=== PATIENT | male | born 1950 | race Caucasian/White ===

== ENCOUNTER 2024-01-25 04:57 | Inpatient (IN) | payer MEDICARE, OTHER, SELFPAY ==
[2024-01-25] VITALS (19 sets, daily range): BP systolic 94–153; BP diastolic 33–64; PULSE 2–103; BMI 26.7; BMI 27.0
--- NOTE | 2024-01-25 03:36 | ED.GENMED ---
History of Present Illness
General
Chief Complaint: Breathing Problem
Source: patient, ambulance crew and detention records
Exam Limitations: none
Time Seen by Provider: 01/25/24 03:05
Nursing documentation reviewed up to this point in time: agreed with
History of Present Illness
History of Present Illness:
Pleasant 73-year-old male from [facility] to presents with shortness of breath, wheezing, fever and cough. Paramedics state that upon arrival, patient's room air oxygen saturation was 80%. They gave him a DuoNeb and put him on nonrebreather.
His pulse ox went up to 98%. Patient was febrile and he received 650 mg of Tylenol prior to EMS arrival. Patient is a poor historian. 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 History is limited to EMS report and
detention records.
Review of Systems
Review of Systems
Allergies reviewed?: Yes
Other source history: ambulance crew and transfer record
All Other Systems: ROS reviewed and negative except as documented in HPI and ROS
Constitutional: Reports fever and sleep disturbance
EENT: Reports no symptoms
Respiratory: Reports cough and trouble breathing
Cardiac: Reports no symptoms
ABD/GI: Reports no symptoms
: Reports no symptoms
Musculoskeletal: Reports no symptoms
Skin: Reports no symptoms
Neurological: Reports no symptoms
Endocrine: Reports no symptoms
Hematologic/Lymphatic: Reports no symptoms
Psychiatric: Reports anxiety
Phy Exam
General Physical Exam
General Presentation: moderate distress
General age: appears stated age
General Skin: warm and dry
General Habitus: normal
General Mental: confused
General Hydration: appears well hydrated
Cardiovascular Exam
Cardiovascular Exam: regular rate/rhythm
Pulmonary Exam
Pulmonary Exam: accessory muscle use, generalized wheezing and respiratory distress
Oxygen Status: BiPAP
Respirations: mild increase in effort
Gastrointestinal Exam
Gastrointestinal Exam: normal bowel sounds and non tender
Neurological Exam
Neurological Exam: confused
Musculoskeletal Exam
Musculoskeletal Exam: full ROM
Skin Exam
Skin Exam: normal color and warm/dry
Psychiatric Exam
Psychiatric Exam: normal mood/affect
Scores
Heart Failure Risk
Heart Failure Risk Score: Not Applicable
Sepsis
Sepsis Screening
Sepsis Assessment: Severe Sepsis
Sepsis Screening: Hypotension and Need for mechanical ventilation or BiPAP
Sepsis Screen
Sepsis Screen: Severe Sepsis
Date: 01/25/24
Time: 06:18
Course
Orders/Labs/Results
Orders:
Orders
01/25/24 03:06
Cardiac Monitoring- Treatment ONCE
Bipap [RESP] Urgent
Patient to use own unit?: No
Inspiratory Pressure (cm H2O): 12
Expiratory Pressure (cm H2O): 5
01/25/24 03:07
CR Chest Portable - 1 View Urgent
Comment:
Reason For Exam: fever, dyspnea
Reason Study Needs to be Portable: Patient Unstable
01/25/24 03:10
Electrocardiogram (*1) Urgent
Reason for Study: Shortness of Breath
EKG- Treatment ONCE
01/25/24 03:36
Add On- LAB Urgent
Tests Added?: probnp
01/25/24 03:37
Arterial Blood Gas Urgent
%Oxygen/Room Air: 2l
01/25/24 03:40
Complete Blood Count/With Diff Urgent
Comprehensive Metabolic Panel Urgent
NT-proBNP Urgent
Comment: ADDED
PTT Urgent
Procalcitonin Urgent
PCT Algorithmm Indication: Sepsis
Prothrombin Time Urgent
Troponin I Urgent
01/25/24 03:41
Lactic Acid Q4H
Comment: CANCEL 2nd LACTIC ACID IF 1st LACTIC ACID IS LESS THAN 2
Blood Culture Routine
LUIS FELIPE Source: Blood/Venous
Specimen Description:
01/25/24 03:42
Influenza A+B Rapid Molecular Urgent
LUIS FELIPE Source: Nasal Swab
Specimen Description:
01/25/24 04:03
COVID-19 Antigen Urgent
Source: Nasal Swab
Blood Culture Urgent
LUIS FELIPE Source: Blood/Venous
Specimen Description:
01/25/24 04:18
Admit/Transfer Patient As Directed
Co-Sign Provider:
Level of Care: Inpatient admission
Assign to:: IMU- Intermediate Care
Physician / Group: hospitalist
Diagnosis: hypoxic respiratory failure
Reason for Hospitalization: hypoxic respiratory failure
Expected length of stay greater than two midnights?: Yes
ELOS- Estimated Length of Stay in days: 2
I certify the patient meets the requirements for IP care: Yes
PRN Pain Medication Management As Directed
May give lesser potent ordered pain med per pt: Yes
preference::
Protocol:: Medication orders for pain may be administered in a
manner that supports deferring to patient preference
when the pt is:
- Requesting an ordered lesser potent pain medication.
Least to most potent pain medications are defined
as: acetaminophen < NSAID < tramadol < opioids
(morphine, oxycodone, hydromorphone).
- Requesting a lesser dose of the same medication IF
ORDERED.
- Requesting a less intrusive route of administration
if both routes are prescribed by the provider (PO <
IV).
01/25/24 04:19
Code Status As Directed
Resuscitation Status: Full Code
01/25/24 04:57
Urinalysis Stat
Date Specimen was Collected: 01/25/24
Time Specimen was Collected: 04:54
01/25/24 05:57
Ipratropium/Albuterol Sulfate [Duoneb] 3 ml INH R Q3HPRN PRN
01/25/24 06:02
0.9% Sodium Chloride 500 ml [Nss] 500 ml IV BOLUS
Abnormal Lab Results
01/25/24 01/25/24
03:37 03:40
RBC 4.03 L 10^6/uL
(4.70-6.10)
Hgb 12.5 L g/dL
(13.0-18.0)
Hct 35.4 L %
(39.0-52.0)
Plt Count 92 L 10^3/uL
(130-400)
MPV 11.7 H fL
(7.4-10.4)
Absolute Neuts (auto) 6.8 H 10^3/uL
(1.4-6.5)
Absolute Lymphs (auto) 0.9 L 10^3/uL
(1.2-3.4)
Neutrophils % 79.6 H %
(42.2-75.2)
Lymphocytes % 10.0 L %
(20.5-51.1)
PT 14.8 H Sec
(11.4-14.6)
APTT 38.3 H Sec
(23.4-35.0)
pO2 70 L mmHg
(83-108)
HCO3 19.3 L mmol/L
(21-28)
Potassium 5.2 H mmol/L
(3.5-5.1)
Carbon Dioxide 20 L mmol/L
(22-30)
BUN 32 H mg/dl
(9-20)
Glucose 153 H mg/dl
(70-99)
01/25/24 03:40
01/25/24 03:40
Vital Signs
Initial and Last Documented VS:
Initial Vital Signs
Pulse Resp Pulse Ox
105 23 89
01/25/24 03:05 01/25/24 03:05 01/25/24 03:05
Last Documented Vital Signs
Temp Pulse Resp BP Pulse Ox
100.8 F H 87 20 99/55 94
01/25/24 04:25 01/25/24 06:00 01/25/24 06:00 01/25/24 06:00 01/25/24 06:00
*Critical Care Note
Total Time (30-74mins, 75-104mins- exclusive of procedures): Not Applicable
ED Attending Note
-
Portions of this chart may have been created with voice recognition software.� Occasional wrong word or��sound alike� substitutions may have occurred due to the inherent limitations of voice recognition software.
Discharge Plan
Departure
Patient Disposition: Admit
Date of Disposition: 01/25/24
Time of Disposition: 03:40
Admit to: IVU
Presentation/result/management discussed w/ accepting MD/DO: Hospitalist
Condition: Fair
Discharge Problem:
COPD (chronic obstructive pulmonary disease), Fever
Interventions
Interventions:
*Risk Screen - Suicide Last Done: 01/25/24 03:07
*General Assessment Last Done: 01/25/24 03:07
*Neglect/Abuse Screening Last Done: 01/25/24 03:07
ED- Fall Risk Assessment Last Done: 01/25/24 03:07
*ED COVID-19 Vaccine History Last Done: 01/25/24 03:07
ED- Cardiac Assessment Last Done: 01/25/24 03:05
ED- Neurological Assessment Last Done: 01/25/24 03:05
ED- Pulmonary Assessment Last Done: 01/25/24 03:05
ED-Skin Assessment Last Done: 01/25/24 03:05
[2024-01-25 03:51] LABS: B.E. -5.6 mmol/L; HCO3 19.3 mmol/L (21-28); O2 Saturation % 97.5 % (94-98); PCO2 35 mmHg (35-48); PO2 70 mmHg (83-108); pH 7.35 (7.35-7.45)
[2024-01-25 03:52] LABS: O2 Therapy 2L NC
[2024-01-25 03:59] LABS: % Basophils 0.4 % (0-2); % Eosinophils 3.9 % (0-6); % Immature Granulocytes 0.4 % (0-0.5); % Monocytes 5.7 % (1.7-9.3); % Neutrophils 79.6 % (42.2-75.2); Absolute Eosinophils 0.3 10^3/uL (0-0.7); Absolute Lymphocytes 0.9 10^3/uL (1.2-3.4); Absolute Monocytes 0.5 10^3/uL (0.1-0.6); Absolute Neutrophils 6.8 10^3/uL (1.4-6.5); Hematocrit 35.4 % (39.0-52.0); Hemoglobin 12.5 g/dL (13.0-18.0); Mean Corp Hgb Conc. 35.3 g/dL (33.0-37.0); Mean Corpuscular Volume 87.8 fL (80.0-94.0); Nucleated Red Blood Cells % 0 % (-); Red Blood Cell Count 4.03 10^6/uL (4.70-6.10); Red Cell Dist. Width 12.6 % (11.5-14.5); White Blood Cell Count 8.6 10^3/uL (4.8-10.8)
[2024-01-25 04:04] LABS: INR 1.18; PT 14.8 Sec (11.4-14.6)
[2024-01-25 04:05] LABS: APTT 38.3 Sec (23.4-35.0)
[2024-01-25 04:07] LABS: Lactic Acid 1.7 mmol/L (0.7-2.0)
--- NOTE | 2024-01-25 04:07 | HPS.HSE ---
Family Physician
-
Family Physician:
Chief Complaint
-
Cough fever and shortness of breath
History of Present Illness
This is a 73-year-old male who has a past medical history significant for COPD not on home O2, tobacco use, prior right posterior cerebral cerebral artery infarct, TBI, hypertension, hyperlipidemia, dysphagia, chronic ambulatory dysfunction who
presents from [facility] with cough fevers and shortness of breath. Patient himself was only able to give a very brief history. He states that he does not know how long he has been feeling sick. However he notes that he has been
having cough and shortness of breath for at least 2 days. He denies having any chest pain. He denies having any palpitations he denies any orthopnea or PND. He had no lower extremity swelling. Paramedics state that upon arrival, patient's room
air oxygen saturation was 80%. They gave him a DuoNeb and put him on nonrebreather. His pulse ox went up to 98%. Patient was febrile and he received 650 mg of Tylenol prior to EMS arrival. On room air his pulse ox ranged from 89 to 95% but he
had high work of breathing. The records from the long-term indicated that the patient was started on cefpodoxime yesterday for UTI.
Initial vitals he was febrile 200.4, blood pressure was 116/60, pulse was 99 with oxygen saturation of 94% on the BiPAP. ECG showed sinus tachycardia at rate of 106 with right bundle branch block. No acute ST or T wave changes. Blood gas shows a
pH of 7.35/35.
Medical History
Past Medical History
Past Medical History: Reports COPD, CVA, Dementia, HTN and Hypercholesterolemia
Past Surgical History: Reports Orthopedic and Other
Social History
Tobacco: Smoker
Alcohol: None
Drug: None
Living: Care Home
Employment: Disabled
Family History
Family History: Not pertinent
Allergies / Home Medications
Allergies reflects when Allergies were last updated in [facility].
Home Medications with original date entered in [facility]
Allergy/Medication List:
Allergies
Allergy/AdvReac Type Severity Reaction Status Date / Time
No Known Allergies Allergy Unverified 01/25/24 03:05
Home Medications
acetaminophen 325 mg tablet (Tylenol) 650 mg PO Q4 PRN fever/pain 01/25/24
albuterol sulfate 2.5 mg/3 mL (0.083 %) solution for nebulization 2.5 mg inhalation Q6H PRN wheezing 01/25/24
albuterol sulfate 90 mcg/actuation aerosol inhaler 2 puff inhalation Q6H PRN wheezing 01/25/24
amlodipine 10 mg tablet 10 mg PO DAILY 01/25/24
bisacodyl 10 mg rectal suppository (Dulcolax (bisacodyl)) 10 mg AR PRN PRN constipation 01/25/24
cefpodoxime 100 mg tablet 100 mg PO BID 01/25/24
cholecalciferol (vitamin D3) 10 mcg (400 unit) capsule (Vitamin D3) See Rx Instructions .Route .COMPLEX 01/25/24
docusate sodium 100 mg capsule (Colace) 100 mg PO BID 01/25/24
escitalopram oxalate 20 mg tablet (Lexapro) 20 mg PO DAILY 01/25/24
ezetimibe 10 mg tablet 10 mg PO DAILY 01/25/24
fluticasone propionate 50 mcg/actuation nasal spray,suspension 2 spray intranasal DAILY 01/25/24
levetiracetam 750 mg tablet 750 mg PO BID 01/25/24
lisinopril 40 mg tablet 40 mg PO DAILY 01/25/24
loperamide 2 mg capsule 2 mg PO Q4H PRN diarrhea 01/25/24
magnesium hydroxide 400 mg/5 mL oral suspension (Milk of Magnesia) 30 ml PO PRN PRN constipation 01/25/24
pravastatin 40 mg tablet 40 mg PO HS 01/25/24
sodium phosphates 19 gram-7 gram/118 mL enema (Fleet Enema) 118 ml AR PRN PRN constipation 01/25/24
Review of Systems
-
Unable to obtain full review of systems at this time due to: Dementia
History Source: Patient
Constitutional: Reports Fever
EENT: Reports No Symptoms
Respiratory: Reports Cough and Trouble Breathing
Cardiac: Reports No Symptoms
Abdomen/GI: Reports No Symptoms
: Reports No Symptoms
Musculoskeletal: Reports No Symptoms
Skin: Reports No Symptoms
Neurological: Reports No Symptoms
Endocrine: Reports No Symptoms
Hematologic/Lymphatic: Reports No Symptoms
Psych: Reports No Symptoms
Physical Exam
Vital Signs
Vital Signs
Temp Pulse Resp BP Pulse Ox
100.4 F H 99 21 116/58 94
01/25/24 03:07 01/25/24 03:45 01/25/24 03:45 01/25/24 03:07 01/25/24 03:45
Physical Exam
General: Appears in Distress
HEENT: NormoCephalic, Anicteric, Atraumatic, PERRLA and Oxygen
Respiratory: Wheezes
Cardiac: S1/S2, Regular Rhythm and Tachycardia
Breast: Deferred by me
GI: Soft, Non Tender, Normal Bowel Sounds and Distended
Rectal: Deferred by Provider
Genito-urinary: Deferred by me
Musculoskeletal: No Clubbing, No Cyanosis and No Edema
Skin: Warm
Neuro: Awake, Oriented (oriented x 3) and Nonfocal/grossly intact
Hematologic/Lymphatic: No Lymphadenopathy
Psych: Calm
Laboratory Results
-
01/25/24 03:40
Laboratory Results
pH 7.35 (7.35-7.45) 01/25/24 03:37
pCO2 35 mmHg (35-48) 01/25/24 03:37
pO2 70 mmHg (83-108) L 01/25/24 03:37
HCO3 19.3 mmol/L (21-28) L 01/25/24 03:37
Lactic Acid 1.7 mmol/L (0.7-2.0) 01/25/24 03:41
Data Reviewed
-
Diagnostic Radiology: Image Personally Visualized and interpreted
Medical Tests (Nuc Med, Echo, EKG etc): Image Personally Visualized and interpreted
Lab Data: Labs Reviewed by me
Old Records: Reviewed
Impression/Plan
-
IMPRESSION:
Patient with history of COPD, hypertension, prior CVA and chronic ambulatory dysfunction, TBI, dementia, history of seizure on antiepileptics who presented to the emergency department with acute episode of cough wheezing and shortness of breath.
Found to have a fever at the long-term. Transferred to the ED hypoxic. He was still febrile in the ED despite Tylenol. Temperature was 100.4. There was no leukocytosis or bandemia. Chest x-ray shows no acute infiltrates. No evidence of
volume overload. No chest pain concerning for PE. ECG is non-ischemic and trop is negative. Required BiPAP for oxygenation and respiratory support.
PLAN:
1. SOB - Severe exacerbation requiring non-invasive ventilatory support. Negative COVID and Flu pending.
- admit to IMU
- continue bipap 15/5, maintain sat > 91%
- start iv solumedrol 40mg bid
- iv ceftriaxone+azithromycin for severe exacerbation pending influenza and covid test
- duonebs q 6 hours standing and prn
- guafenesin tab q 6 and w/ dextromethophan prn
- pulmonary consult. Likely to wean of bipap very soon.
- no IV fluids given slight elevation in BNP.
2. HTN - Well controlled. Was on Lisinopril 40 and amlodipine 10 at home. Early BP a bit soft at 110/55
- amlodipine 10
- hold lisinopril
- no signs of overt CHF but bnp elevated. No IV fluids at this time.
3. Seizure
- Continue keppra 750 bid
4.
DVT PPX
Code Status - Full
[2024-01-25 04:08] LABS: ALT (SGPT) 17 U/L (0-50); AST (SGOT) 22 U/L (17-59); Albumin 4.3 g/dl (3.5-5.0); Alkaline Phosphatase 77 U/L (38-126); Blood Urea Nitrogen 32 mg/dl (9-20); Calcium 9.4 mg/dl (8.4-10.2); Carbon Dioxide 20 mmol/L (22-30); Chloride 107 mmol/L (98-107); Estimated Creatinine Clearance 67 ml/min; Glucose 153 mg/dl (70-99); Potassium 5.2 mmol/L (3.5-5.1); Sodium 142 mmol/L (135-145); Total Protein 7.1 g/dl (6.3-8.2); eGFR > 60.00
[2024-01-25 04:17] LABS: NT-proBNP 2360 pg/ml; Troponin I 0.022 ng/ml
[2024-01-25 04:26] LABS: COVID-19 Antigen Negative (Negative)
[2024-01-25 04:26] LABS: Mean Platelet Volume 11.7 fL (7.4-10.4); Platelet Count 92 10^3/uL (130-400)
[2024-01-25 04:38] LABS: Procalcitonin 0.12 ng/ml (0.0-0.25)
[2024-01-25 05:05] LABS: Urine Bilirubin Negative (Negative); Urine Character Clear (Clear); Urine Color Yellow; Urine Glucose Negative (Negative); Urine Ketone Negative (Negative); Urine Leukocyte Negative (Negative); Urine Nitrite Negative (Negative); Urine Occult Blood Negative (Negative); Urine Specific Gravity 1.015 (<1.030); Urine Urobilinogen 1+ (Neg - 1+)
[2024-01-25 05:10] LABS: Urine Albumin Trace (Neg - Trace)
[2024-01-25] MEDS: SOLU-MEDROL PF 40 MG IV ×2 (05:51→17:33)
[2024-01-25] MEDS: ROCEPHIN 1000 MG IV (05:51)
[2024-01-25] MEDS: VIBRAMYCIN 260 MG IV (05:56)
[2024-01-25] MEDS: STERILE WATER FOR INJECTION 10 ML IV (06:01)
[2024-01-25] MEDS: DUONEB 3 ML INH ×5 (06:01→20:27)
[2024-01-25] MEDS: NSS 500 IV (06:10)
--- NOTE | 2024-01-25 06:11 | EDRN ---
Respiratory therapist is at bedside attempting to reason w/ pt. to place bipap mask back on, as pt. had taken himself off and was becoming agitated whenever RN attempted to put back on. Was placed on 5LNC and given a duo neb, but still tachypnic and
audible rales heard. Pt. is allowing respiratory to replace mask currently.
--- NOTE | 2024-01-25 07:34 | W.PN.HOSP.TC ---
Addendum entered and electronically signed by Rolf Hoyos MD 01/25/24 21:53:
Attending Addendum-
I saw and evaluated the patient. I reviewed the resident�s note and agree with findings and plan as documented in the resident�s note. Sub: feels greatly improved. Off bipap. Denies SOB. Full 12 point ROS reviewed and negative except as documented
Exam: Vitals reviewed in chart GEN-NAD heart RRR lungs scattered wheeze abd soft LE no edema
# AE COPD/ Acute on Chronic Hypoxemic Respiratory Failure -
- weaned off Bipap to OK wean for o2 88-92%
- Negative COVID and Flu
- transfer out of IMU if stable off bipap
- cont iv solumedrol 40mg bid start taper in am
- DC abx no PNA
- duonebs q 6 hours standing and prn
- guaifenesin tab q 6 and w/ dextromethorphan prn
- pulmonary consult ordered by art teacher
# HTN
- hold parameters placed for amlodipine
- hold lisinopril
- no signs of overt CHF but bnp elevated
- check echo
# Seizure d/o
- Continue keppra 750 bid
# Thrombocytopenia
- cont to trend
# HLD- cont pravastatin
# Depression
- cont lexapro
Code Status - Full
Time spent coordinating care, review of plan of care with resident, personally reviewed records in EMR, med rec, consults, notes, labs, radiology, d/w nursing � 59 mins
Original Note:
Today's Communication/Plan
-
BiPAP discontinued. Currently on 2L Nasal cannula. 2d Echo ordered. IV Solu-Medrol and 40 mg twice daily. IV ceftriaxone and azithromycin discontinued. WBCs within normal limits and CXR showed no pneumonia. DuoNebs every 6 hours standing and as
needed. Guaifenesin tab every 6 hours with dextromethorphan as needed. Consider pulmonology consult.
Assessment / Plan
Assessment / Plan
HPI: The patient is a 73-year-old male from [facility] who presented with shortness of breath, wheezing, fever and cough prior to date night caregiver arrival, the patient's room air oxygen saturation was 80%. They gave him a DuoNeb and put him on a
nonrebreather mask. His pulse ox went up to 98% following initiation of nonrebreather. Temperature was 100.4. Patient was also febrile and he received 650 mg Tylenol prior to his EMS arrival. There was no leukocytosis or bandemia. X-ray showed
no acute infiltrates. No evidence of volume overload noted. 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 Unfortunately, history is limited to EMS report and [facility] records. Patient was
admitted to [facility] for COPD exacerbation.
Past medical history: COPD, CVA, dementia, chronic ambulatory dysfunction, history of seizure on antiepileptics, hypertension, and hypercholesterolemia
Allergies
Allergy/AdvReac Type Severity Reaction Status Date / Time
No Known Allergies Allergy Unverified 01/25/24 03:05
Home Medications
acetaminophen 325 mg tablet (Tylenol) 650 mg PO Q4 PRN fever/pain 01/25/24
albuterol sulfate 2.5 mg/3 mL (0.083 %) solution for nebulization 2.5 mg inhalation Q6H PRN wheezing 01/25/24
albuterol sulfate 90 mcg/actuation aerosol inhaler 2 puff inhalation Q6H PRN wheezing 01/25/24
amlodipine 10 mg tablet 10 mg PO DAILY 01/25/24
bisacodyl 10 mg rectal suppository (Dulcolax (bisacodyl)) 10 mg NV PRN PRN constipation 01/25/24
cefpodoxime 100 mg tablet 100 mg PO BID 01/25/24
cholecalciferol (vitamin D3) 10 mcg (400 unit) capsule (Vitamin D3) See Rx Instructions .Route .COMPLEX 01/25/24
docusate sodium 100 mg capsule (Colace) 100 mg PO BID 01/25/24
escitalopram oxalate 20 mg tablet (Lexapro) 20 mg PO DAILY 01/25/24
ezetimibe 10 mg tablet 10 mg PO DAILY 01/25/24
fluticasone propionate 50 mcg/actuation nasal spray,suspension 2 spray intranasal DAILY 01/25/24
levetiracetam 750 mg tablet 750 mg PO BID 01/25/24
lisinopril 40 mg tablet 40 mg PO DAILY 01/25/24
loperamide 2 mg capsule 2 mg PO Q4H PRN diarrhea 01/25/24
magnesium hydroxide 400 mg/5 mL oral suspension (Milk of Magnesia) 30 ml PO PRN PRN constipation 01/25/24
pravastatin 40 mg tablet 40 mg PO HS 01/25/24
sodium phosphates 19 gram-7 gram/118 mL enema (Fleet Enema) 118 ml NV PRN PRN constipation 01/25/24
Assessment/Plan:
-COPD Exacerbation:
Severe exacerbation requiring noninvasive ventilatory support.
Negative COVID and flu
No chest pain so it is unlikely PE
BiPAP discontinued. Currently on 2L Nasal cannula
2d Echo ordered
IV Solu-Medrol and 40 mg twice daily
IV ceftriaxone and azithromycin discontinued. WBCs within normal limits and CXR showed no pneumonia
DuoNebs every 6 hours standing and as needed
Guaifenesin tab every 6 hours with dextromethorphan as needed
Consider pulmonology consult
-Essential hypertension: Well-controlled
Patient was on lisinopril 40 mg and amlodipine 10 mg at home
Continue home medications and only hold them if SBP <100
No signs of overt CHF but BNP was elevated. Holding IV fluids at this time
-Thrombocytopenia:
platelets were at 92.
Continue to trend
-History of seizures:
Continue Keppra 750 mg twice daily
-Hypercholesterolemia:
Continue home medications
Anticipated Discharge: > 48 hours
Subjective/Interval History
-
Date of Service: January 25, 2024
Patient was sleepy during patient encounter. He did not converse much and dozed off while talking. Prominent rhonchi heard throughout both lung bruno.
Objective Data
-
Labs:
Laboratory Results
01/25/24 01/25/24
03:37 03:40
WBC 8.6
Hgb 12.5 L
Hct 35.4 L
Plt Count 92 L
PT 14.8 H
INR 1.18
APTT 38.3 H
HCO3 19.3 L
Sodium 142
Potassium 5.2 H
Chloride 107
Carbon Dioxide 20 L
BUN 32 H
Creatinine 1.1
Glucose 153 H
Calcium 9.4
Total Bilirubin 1.0
AST 22
ALT 17
Alkaline Phosphatase 77
Vital Signs:
Vital Signs
Temp Pulse Resp BP Pulse Ox
100.8 F H 86 19 118/53 98
01/25/24 04:25 01/25/24 07:00 01/25/24 07:00 01/25/24 06:30 01/25/24 07:00
Review of Systems
-
Unable to obtain full review of systems at this time due to: Other (Somnolence)
History Source: Patient
Respiratory: Reports Cough
Cardiac: Reports No Symptoms
Abdomen/GI: Reports No Symptoms
Breast: Reports No Symptoms
Musculoskeletal: Reports No Symptoms
Skin: Reports No Symptoms
Neuro: Reports No Symptoms
Endocrine: Reports No Symptoms
Hematologic / Lymphatic: Reports No Symptoms
Physical Exam
-
General: Well Developed
HEENT: Normocephalic and Atraumatic
Cardiac: Regular Rhythm and S1/S2
Breast: Deferred by me
GI: Soft, Nontender, Nondistended and Normal Bowel Sounds
Rectal: Deferred by Provider
Genito-urinary: Deferred by me
[2024-01-25] MEDS: COLACE 100 MG PO ×2 (09:18→20:09)
[2024-01-25] MEDS: LEXAPRO 20 MG PO (09:18)
[2024-01-25] MEDS: KEPPRA 750 MG PO ×2 (09:18→20:08)
[2024-01-25] MEDS: NORVASC 10 MG PO (09:18)
[2024-01-25] MEDS: MUCINEX 600 MG PO ×2 (09:18→20:08)
[2024-01-25] MEDS: ZETIA 10 MG PO (09:25)
--- NOTE | 2024-01-25 14:28 | PTCARENOTE ---
Patient heard calling out saying he wanted to go home. He had also stated he did not like the soup and he threw it. Bed changed, floor cleaned and housekeeping notified. Reviewed call [facility] system and that he is in the hospital. Patient currently
sleeping.
--- NOTE | 2024-01-25 15:33 | CM ---
Patient from [facility] with Hx CVA, TBI with ED Dx hypoxic respiratory failure. O2 3L. BiPAP. Receiving IV/PO Abx, IV Steroids. Per nursing; forgetful.
CM Consult: Advanced Directive
Met with patient who was working with respiratory therapist. Provided Advanced Directive packet w pen with instructions to provide to nurse.
Met with Sharon, s [facility] SN[facility];
the patient resides there in LTC and is on an MA bed hold.
He is A/O at baseline, requires assist with ADLs: max assist bathing/toileting, mod A upper body ADLs. Independent with dressing.
The patient is ambulatory 80' with mod assist with his RW.
No current PT/OT.
The patient has not been on home O2.
Per Sharon, the son and daughter have not returned any phone calls since the patient was admitted there.
[facility]: the ph for report [phone], fax [phone].
Plan follow patient's mobility and watch for O2 needs.
Plan return to [facility] when medically ready.
[2024-01-25] MEDS: LOVENOX 40 MG SC (17:32)
[2024-01-25] MEDS: VIBRAMYCIN 100 MG PO (17:33)
[2024-01-25] MEDS: PRAVACHOL 40 MG PO (17:33)
[2024-01-25] MEDS: TYLENOL 650 MG PO (20:12)
[2024-01-26] VITALS (9 sets, daily range): BP systolic 105–136; BP diastolic 33–86
[2024-01-26] MEDS: SOLU-MEDROL PF 40 MG IV (05:46)
[2024-01-26 06:13] LABS: ALT (SGPT) 18 U/L (0-50); AST (SGOT) 20 U/L (17-59); Albumin 3.8 g/dl (3.5-5.0); Alkaline Phosphatase 47 U/L (38-126); Blood Urea Nitrogen 51 mg/dl (9-20); Calcium 9.5 mg/dl (8.4-10.2); Carbon Dioxide 22 mmol/L (22-30); Chloride 107 mmol/L (98-107); Estimated Creatinine Clearance 49 ml/min; Glucose 134 mg/dl (70-99); Potassium 5.8 mmol/L (3.5-5.1); Sodium 141 mmol/L (135-145); Total Bilirubin 0.5 mg/dl (0.2-1.3); Total Protein 6.5 g/dl (6.3-8.2); eGFR 49.16
--- NOTE | 2024-01-26 06:19 | PTCARENOTE ---
No acute changes overnight. Forgetful @ baseline, but able to state hospital and the month/year. Resistant to care, but understanding once explanation is provided. 2L NC in place. Denies SOB, reports his breathing is improved. Tele showing NSR/SB w/
PVCs. Pt requested Tylenol for ARRIETA. Incont in diaper. No BM. Preliminary BC resulting, LOSS PREVENTION SUPERVISOR made aware. Afebrile. Encouraged to reposition self while in bed. Bed alarm set for safety. Call coyne within reach. Room is close to nurses station.
[2024-01-26 06:26] LABS: Hemoglobin 10.8 g/dL (13.0-18.0); Mean Corp Hgb Conc. 34.8 g/dL (33.0-37.0); Mean Corpuscular Hgb 30.9 pg (27.0-31.0); Mean Corpuscular Volume 88.6 fL (80.0-94.0); Mean Platelet Volume 10.7 fL (7.4-10.4); Platelet Count 84 10^3/uL (130-400); Red Cell Dist. Width 12.9 % (11.5-14.5); White Blood Cell Count 5.9 10^3/uL (4.8-10.8)
[2024-01-26 06:31] LABS: Procalcitonin 0.17 ng/ml (0.0-0.25)
--- NOTE | 2024-01-26 07:28 | W.PN.HOSP.TC ---
Addendum entered and electronically signed by Rolf Hoyos MD 01/26/24 21:55:
Attending Addendum-
I saw and evaluated the patient. I reviewed the resident�s note and agree with findings and plan as documented in the resident�s note. Sub: no complaints. weaned off bipap to NC. Denies SOB. Full 12 point ROS reviewed and negative except as
documented Exam: Vitals reviewed in chart GEN-NAD heart RRR lungs scattered expiratory wheeze abd soft LE no edema
# AE COPD/ Acute on Chronic Hypoxemic Respiratory Failure -
- weaned off Bipap to NC wean for o2 88-92%
- Negative COVID and Flu
- transfer out of IMU if stable off bipap
- taper iv solumedrol 30mg bid
- repeat cxr in am
- duonebs q 4 hours standing and prn
- guaifenesin tab q 6 and w/ dextromethorphan prn
# HTN
- hold parameters placed for amlodipine
- hold lisinopril
- no signs of overt CHF but bnp elevated
- check echo 01/25 -Mild concentric left ventricular hypertrophy.
Left ventricular ejection fraction is 55-60%
# Seizure d/o
- Continue keppra 750 bid
- CTM for recurrence
# GPC pos blood cx
- possible contaminant
- repeat blood cx x 2 mala
- not septic appearing
- start vanco
# Thrombocytopenia
- cont to trend
- lower
- repeat CBC in am
# BRIAN
- check fena
- likely prerenal
- start IVF
# Hyperkalemia
- heck EKG
- give calcium gluc x 1
- cont duonebs
- repeat BMP in am
- Lokelma x 1
# HLD- cont pravastatin
# Depression
- cont lexapro
Code Status - Full
Time spent coordinating care, review of plan of care with resident, personally reviewed records in EMR, med rec, consults, notes, labs, radiology, d/w nursing � 62 mins
Original Note:
Today's Communication/Plan
-
Patient's platelets continue to trend downward. Will continue to monitor. Will downgrade patient to IMU if stable on 2 L O2 nasal cannula. Potassium level is increased compared to yesterday along with BUN and creatinine. Consider pulmonology
consult. Gram-positive organism in clusters detected in preliminary blood culture.
Assessment / Plan
Assessment / Plan
HPI: The patient is a 73-year-old male from [facility] who presented with shortness of breath, wheezing, fever and cough prior to land surveyor assistant arrival, the patient's room air oxygen saturation was 80%. They gave him a DuoNeb and put him on a
nonrebreather mask. His pulse ox went up to 98% following initiation of nonrebreather. Temperature was 100.4. Patient was also febrile and he received 650 mg Tylenol prior to his EMS arrival. There was no leukocytosis or bandemia. X-ray showed
no acute infiltrates. No evidence of volume overload noted. 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 Unfortunately, history is limited to EMS report and senior care records. Patient was
admitted to [facility] for COPD exacerbation.
Past medical history: COPD, CVA, dementia, chronic ambulatory dysfunction, history of seizure on antiepileptics, hypertension, and hypercholesterolemia
Allergies
Allergy/AdvReac Type Severity Reaction Status Date / Time
No Known Allergies Allergy Unverified 01/25/24 03:05
Home Medications
acetaminophen 325 mg tablet (Tylenol) 650 mg PO Q4 PRN fever/pain 01/25/24
albuterol sulfate 2.5 mg/3 mL (0.083 %) solution for nebulization 2.5 mg inhalation Q6H PRN wheezing 01/25/24
albuterol sulfate 90 mcg/actuation aerosol inhaler 2 puff inhalation Q6H PRN wheezing 01/25/24
amlodipine 10 mg tablet 10 mg PO DAILY 01/25/24
bisacodyl 10 mg rectal suppository (Dulcolax (bisacodyl)) 10 mg WA PRN PRN constipation 01/25/24
cefpodoxime 100 mg tablet 100 mg PO BID 01/25/24
cholecalciferol (vitamin D3) 10 mcg (400 unit) capsule (Vitamin D3) See Rx Instructions .Route .COMPLEX 01/25/24
docusate sodium 100 mg capsule (Colace) 100 mg PO BID 01/25/24
escitalopram oxalate 20 mg tablet (Lexapro) 20 mg PO DAILY 01/25/24
ezetimibe 10 mg tablet 10 mg PO DAILY 01/25/24
fluticasone propionate 50 mcg/actuation nasal spray,suspension 2 spray intranasal DAILY 01/25/24
levetiracetam 750 mg tablet 750 mg PO BID 01/25/24
lisinopril 40 mg tablet 40 mg PO DAILY 01/25/24
loperamide 2 mg capsule 2 mg PO Q4H PRN diarrhea 01/25/24
magnesium hydroxide 400 mg/5 mL oral suspension (Milk of Magnesia) 30 ml PO PRN PRN constipation 01/25/24
pravastatin 40 mg tablet 40 mg PO HS 01/25/24
sodium phosphates 19 gram-7 gram/118 mL enema (Fleet Enema) 118 ml WA PRN PRN constipation 01/25/24
Assessment/Plan:
-COPD Exacerbation:
Severe exacerbation requiring noninvasive ventilatory support.
Negative COVID and flu
No chest pain so it is unlikely PE
BiPAP discontinued. Currently on 2L Nasal cannula
IV Solu-Medrol and 40 mg twice daily
IV ceftriaxone and azithromycin discontinued. WBCs within normal limits and CXR showed no pneumonia
DuoNebs every 6 hours standing and as needed
Guaifenesin tab every 6 hours with dextromethorphan as needed
Consider pulmonology consult
May consider transfer out of IMU if stable on 2L NC O2
Blood culture obtained came back as a preliminary positive of Gram-positive cocci in clusters seen. 2 other cultures have been drawn for further investigation.
Methylprednisolone decreased to 30 mg IV every 12 hours
-Essential hypertension: Well-controlled
Patient was on lisinopril 40 mg and amlodipine 10 mg at home
Continue home amlodipine and only hold them if SBP <100
Holding Lisinopril
No signs of overt CHF but BNP was elevated. Holding IV fluids at this time
Echocardiogram conducted on 01/25/2024 showed a left ventricular ejection fraction of 55 to 60% and mild aortic stenosis with mild tricuspid regurgitation. There was also trace pulmonic regurgitation.
-Hyperkalemia:
Patient had a potassium of 5.8 on 01/26/2024
Calcium gluconate given
Will check potassium levels tomorrow
-BRIAN (possibly prerenal secondary to hypoperfusion):
Patient had a creatinine of 1.5 on 01/26/2024 which is 8.4 increase from 1.1 on 01/25/2024. BUN increased to 51 on 01/26/2024
1000 mL of IV fluids given
Continue to check BMP
Urine sodium and urine creatinine taken to measure fractional excretion of sodium
-Thrombocytopenia:
platelets were at 92 on 01/25/24, platelets are 84 on 01/26/24
Continue to trend
-History of seizures:
Continue Keppra 750 mg twice daily
-Hypercholesterolemia:
Continue home pravastatin
-Depression:
Continue Lexapro
DVT prophylaxis: Enoxaparin subcu
Full CODE STATUS
Anticipated Discharge: 24 - 48 hours
Subjective/Interval History
-
Date of Service: January 26, 2024
Met with patient at the bedside. Overall, he states that he is doing okay and has no complaints to offer at the present time. He said that he was a little cold but did not want a blanket. Seen curled laying on his left side and responds in short
quick answers.
Objective Data
-
Labs:
Laboratory Results
01/26/24
05:44
WBC 5.9
Hgb 10.8 L
Hct 31.0 L
Plt Count 84 L
Sodium 141
Potassium 5.8 H
Chloride 107
Carbon Dioxide 22
BUN 51 H
Creatinine 1.5 H
Glucose 134 H
Calcium 9.5
Total Bilirubin 0.5
AST 20
ALT 18
Alkaline Phosphatase 47
Vital Signs:
Vital Signs
Temp Pulse Resp BP Pulse Ox
97.5 F 58 10 131/50 100
01/26/24 04:21 01/26/24 06:00 01/26/24 06:00 01/26/24 06:00 01/26/24 06:00
I&O
01/25/24 01/26/24 01/27/24
06:59 06:59 06:59
Intake Total 540 / 540
Balance 540 / 540
Review of Systems
-
History Source: Patient
All other systems: Reviewed and negative
EENT: Reports No Symptoms Reported
Respiratory: Reports No Symptoms
Cardiac: Reports No Symptoms
Abdomen/GI: Reports No Symptoms
Breast: Reports No Symptoms
Genitourinary: Reports No Symptoms
Musculoskeletal: Reports No Symptoms
Skin: Reports No Symptoms
Neuro: Reports No Symptoms
Endocrine: Reports No Symptoms
Hematologic / Lymphatic: Reports No Symptoms
Allergy / Immunology: Reports No Symptoms
Physical Exam
-
General: Well Developed and No Apparent Distress
HEENT: Normocephalic, Atraumatic and Moist Mucous Membranes
Respiratory: Wheezes
Cardiac: Bradycardic
Breast: Deferred by me
GI: Soft, Nontender, Nondistended and Normal Bowel Sounds
Rectal: Deferred by Provider
Musculoskeletal: No Clubbing, No Cyanosis and No Edema
Skin: Warm and Dry
Neuro: Awake
[2024-01-26] MEDS: DUONEB 3 ML INH ×4 (07:33→19:53)
--- NOTE | 2024-01-26 09:00 | PTCARENOTE ---
Patient received from pet care associate. Patient resting comfortably in bed. AAO (although can be confused and agitated at times), VSS. No events noted overnight. No complaints of pain at this time. No tests scheduled at this time. Call coyne in
reach.
[2024-01-26] MEDS: LEXAPRO 20 MG PO (09:12)
[2024-01-26] MEDS: COLACE 100 MG PO ×2 (09:12→19:35)
[2024-01-26] MEDS: KEPPRA 750 MG PO ×2 (09:12→19:35)
[2024-01-26] MEDS: ZETIA 10 MG PO (09:12)
[2024-01-26] MEDS: MUCINEX 600 MG PO ×2 (09:12→19:35)
[2024-01-26] MEDS: NORVASC 10 MG PO (09:12)
--- NOTE | 2024-01-26 10:17 | CM ---
Patient seen at bedside. Patient on O2 resting. CM will continue to follow for discharge planning needs.
Plan; return to SNF
[2024-01-26 10:36] LABS: % Eosinophils 0.2 % (0-6); % Immature Granulocytes 0.2 % (0-0.5); % Monocytes 5.9 % (1.7-9.3); % Neutrophils 85.7 % (42.2-75.2); Absolute Lymphocytes 0.5 10^3/uL (1.2-3.4); Absolute Monocytes 0.3 10^3/uL (0.1-0.6); Nucleated Red Blood Cells % 0 % (-)
[2024-01-26] MEDS: NSS 1000 IV ×2 (11:28→22:07)
[2024-01-26] MEDS: NSS 500 IV (11:28)
[2024-01-26] MEDS: CALCIUM GLUCONATE 100 IV (13:34)
[2024-01-26] MEDS: LOVENOX 40 MG SC (17:59)
[2024-01-26] MEDS: SOLU-MEDROL PF 30 MG IV (17:59)
[2024-01-26] MEDS: PRAVACHOL 40 MG PO (17:59)
[2024-01-26 18:33] LABS: Urine Sodium 81 mmol/L (30-90)
[2024-01-26] MEDS: TYLENOL 650 MG PO (19:40)
[2024-01-26 20:56] LABS: Hepatitis C Antibody Negative (Negative)
--- NOTE | 2024-01-26 22:18 | PHA.VAN.IN ---
Assessment
- Assessment
Renal Function: Appears elevated from baseline (01/25/24 BASELINE SCR: 1.1)
Concomitant Antimicrobials: NONE
- Previous Dosing Experience
Previous Regimen: NONE
Plan
- Plan
Initial / Loading Dose: 2GM
Maintenance Regimen: DOSING BY RANDOM LEVELS
Monitoring: RANDOM VANCOMYCIN LEVEL 01/27/24 AM
Pharmacokinetics Vancomycin I
- -
Patient Age: 73
Patient Sex: Male
Vancomycin Day #: 1
Indication: Bacteremia
Requesting Provider: KEYSHAWN
Height / Weight:
Height 6 ft
Actual Weight 90.1 kg
- Vital Signs / Lab Results
Temp Pulse Resp BP Pulse Ox
98.8 F 79 15 135/48 97
01/26/24 20:20 01/26/24 20:00 01/26/24 20:00 01/26/24 20:00 01/26/24 20:05
Lab Results - Hematology
01/25/24 01/26/24
03:40 05:44
WBC 8.6 5.9
Lab Results - Chemistry
01/25/24 01/26/24
03:40 05:44
BUN 32 H 51 H
Creatinine 1.1 1.5 H
Estimated Creat Clear 67 49
Albumin 4.3 3.8
01/25/24 01/25/24
03:41 07:15
Lactic Acid 1.7 Cancelled
Lab Results - Urine
01/25/24
04:57
Urine Nitrite Negative
Ur Leukocyte Esterase Negative
Microbiology Results
01/25/24 04:03 Blood Culture - Preliminary
Blood/Venous Positive culture in progress
Gram Stain - Preliminary
01/25/24 09:01 MRSA Screen - Final
Nose No Methicillin Resistant Staphylococcus aureus isolated.
01/25/24 04:57 Urine Culture - Final
Urine NO GROWTH
01/25/24 03:41 Blood Culture - Preliminary
Blood/Venous No Growth in 24 hours- Final report to follow
01/25/24 03:42 Influenza Types A & B (KAILEE) - Final
Nasal Swab Negative for Influenza A & B, NAAT
Negative results must be combined with clinical observations
and patient history.
Nucleic Acid Amplification test (NAAT)performed on the
[employer] platform.
[2024-01-26] MEDS: VANCOCIN 540 MG IV (22:33)
[2024-01-26] MEDS: LOKELMA 5 GRAM PO (22:50)
--- NOTE | 2024-01-26 23:51 | PTCARENOTE ---
Patient received from [facility], report given by RN. Pt AAOx3 although forgetful at times. Normal sinus on tele with occasional PVC. IV abx started. Pt complains of a headache, given PRN Tylenol. Pt bathed and receptive to teaching regarding hygiene.
Pt appears to be resting comfortable and requests to sleep at this time. Call coyne is within reach, pt rings appropriately.
[2024-01-27] VITALS (15 sets, daily range): BP systolic 124–164; BP diastolic 39–74; PULSE 79–87; O2SAT 91; BMI 27.5
[2024-01-27] MEDS: SOLU-MEDROL PF 30 MG IV (05:41)
[2024-01-27 06:08] LABS: % Immature Granulocytes 0.3 % (0-0.5); % Lymphocytes 10.4 % (20.5-51.1); % Monocytes 7.1 % (1.7-9.3); % Neutrophils 82.2 % (42.2-75.2); Absolute Lymphocytes 0.6 10^3/uL (1.2-3.4); Absolute Monocytes 0.4 10^3/uL (0.1-0.6); Hematocrit 28.8 % (39.0-52.0); Hemoglobin 10.1 g/dL (13.0-18.0); Mean Corp Hgb Conc. 35.1 g/dL (33.0-37.0); Mean Corpuscular Hgb 30.8 pg (27.0-31.0); Mean Corpuscular Volume 87.8 fL (80.0-94.0); Mean Platelet Volume 10.7 fL (7.4-10.4); Nucleated Red Blood Cells % 0 % (-); Platelet Count 91 10^3/uL (130-400); Red Blood Cell Count 3.28 10^6/uL (4.70-6.10); Red Cell Dist. Width 12.9 % (11.5-14.5)
[2024-01-27 06:21] LABS: Vancomycin Random 16.2 ug/ml
[2024-01-27 06:48] LABS: ALT (SGPT) 19 U/L (0-50); AST (SGOT) 21 U/L (17-59); Albumin 3.2 g/dl (3.5-5.0); Alkaline Phosphatase 42 U/L (38-126); Blood Urea Nitrogen 48 mg/dl (9-20); Calcium 9.1 mg/dl (8.4-10.2); Carbon Dioxide 18 mmol/L (22-30); Chloride 112 mmol/L (98-107); Estimated Creatinine Clearance 67 ml/min; Glucose 125 mg/dl (70-99); Magnesium 1.8 mg/dl (1.6-2.3); Potassium 5.3 mmol/L (3.5-5.1); Sodium 139 mmol/L (135-145); Total Bilirubin 0.4 mg/dl (0.2-1.3); Total Protein 5.7 g/dl (6.3-8.2); eGFR > 60.00
[2024-01-27] MEDS: DUONEB 3 ML INH ×4 (07:19→19:52)
--- NOTE | 2024-01-27 07:28 | W.PN.HOSP.TC ---
Addendum entered and electronically signed by Rolf Hoyos MD 01/27/24 22:37:
Attending Addendum-
I saw and evaluated the patient. I reviewed the resident�s note and agree with findings and plan as documented in the resident�s note. Sub: feels improved but still mildly sob. Denies SOB. Full 12 point ROS reviewed and negative except as
documented Exam: Vitals reviewed in chart GEN-NAD heart RRR lungs scattered expiratory wheeze abd soft LE no edema
# AE COPD/ Acute on Chronic Hypoxemic Respiratory Failure -
- weaned from Bipap to RA
- Negative COVID and Flu
- taper solumedrol to 30mg daily
- duonebs q 4 hours standing and prn
- cont doxy for COPD exacerbation
- guaifenesin tab q 6 and w/ dextromethorphan prn
- transfer to tele
# HTN
- stable monitor cont amlodipine
- hold lisinopril
- echo 01/25 -Mild concentric left ventricular hypertrophy.
Left ventricular ejection fraction is 55-60%
# Seizure d/o
- Continue keppra 750 bid
- CTM for recurrence
# GPC pos blood cx
- likely contaminant
- repeat blood cx NGTD
- not septic appearing
- vanco x 1 given pending repeat blood cx
- cont doxy
# Thrombocytopenia
- cont to trend
- improving
- repeat CBC in am
# Elevated qTC
- avoid QT prolonging meds
- repeat EKG prn
# BRIAN
- resolved
- fena 2.1%
- improved with fluids and holding lisinopril
- likely has component of intrinsic kidney disease
# Hyperkalemia
- resolving
- given calcium gluc x 1
- cont duonebs
- Lokelma x 1
- BMP in am
# HLD- cont pravastatin
# Depression
- cont lexapro
Code Status - Full
Dispo- eventual dc back to [facility]
Time spent coordinating care, review of plan of care with resident, personally reviewed records in EMR, med rec, consults, notes, labs, radiology, d/w nursing � 58 mins
Original Note:
Today's Communication/Plan
-
Patient was successfully weaned down to room air. He is appropriate for downgrade to telemetry and has been transferred. Speech therapy has seen the patient and recommended regular thin fluids and that no further dysphagia therapy warranted.
Patient has been switched over to doxycycline from IV Vanco. Patient's diet switched over to a low potassium diet.
Assessment / Plan
Assessment / Plan
Assessment/Plan:
-COPD Exacerbation:
Severe exacerbation requiring noninvasive ventilatory support.
Negative COVID and flu
No chest pain so it is unlikely PE
DuoNebs every 6 hours standing and as needed
Guaifenesin tab every 6 hours with dextromethorphan as needed
Speech therapy has seen the patient and recommended regular thin fluids and that no further dysphagia therapy warranted.
Patient has been weaned down to room air and pulse ox is within normal limits. Patient has been downgraded to telemetry for monitoring of QTc.
Blood culture obtained came back as a preliminary positive of Gram-positive cocci in clusters seen. 2 other cultures have been drawn for further investigation. Patient was given IV vancomycin which has been discontinued and replaced with oral
doxycycline.
Methylprednisolone decreased to 30 mg IV every 24hrs.
-Essential hypertension: Well-controlled
Patient was on lisinopril 40 mg and amlodipine 10 mg at home
Continue home amlodipine and only hold them if SBP <100
Holding Lisinopril
No signs of overt CHF but BNP was elevated. Holding IV fluids at this time
Echocardiogram conducted on 01/25/2024 showed a left ventricular ejection fraction of 55 to 60% and mild aortic stenosis with mild tricuspid regurgitation. There was also trace pulmonic regurgitation.
-Hyperkalemia:
Patient had a potassium of 5.8 on 01/26/2024. Patient had a potassium of 5.3 on 01/27/2024
Lokelma given once in the evening 1 time on 01/26/2024
Low potassium diet ordered
Continue to follow potassium
-BRIAN (possibly prerenal secondary to hypoperfusion):
Patient had a creatinine of 1.5 on 01/26/2024 which is 8.4 increase from 1.1 on 01/25/2024. BUN increased to 51 on 01/26/2024. Creatinine improved to 1.1 on 01/27/2024
1000 mL of IV fluids given
Continue to check BMP
Urine sodium and urine creatinine taken to measure fractional excretion of sodium - 2.2%
-Thrombocytopenia:
platelets were at 92 on 01/25/24, platelets were 84 on 01/26/24, platelets are 91 on 01/27/24
Continue to trend
-History of seizures:
Continue Keppra 750 mg twice daily
-Hypercholesterolemia:
Continue home pravastatin
-Depression:
Continue Lexapro
DVT prophylaxis: Enoxaparin subcu
Full CODE STATUS
Anticipated Discharge: 24 - 48 hours
Subjective/Interval History
-
Date of Service: January 27, 2024
Met with patient at the bedside. He noticed me the moment I walked in and was smiling and joked and asked if I am there 'to get him in trouble.' The patient feels comfortable and says that he is breathing well. He is laying on his left side and
thinks that he is ready to go home. He offers no complaints at the present time aside from weakness. Noticeable cough heard while he converses -though he does not complain about it.
Objective Data
-
Labs:
Laboratory Results
01/27/24
05:50
WBC 6.0
Hgb 10.1 L
Hct 28.8 L
Plt Count 91 L
Sodium 139
Potassium 5.3 H
Chloride 112 H
Carbon Dioxide 18 L
BUN 48 H
Creatinine 1.1
Glucose 125 H
Calcium 9.1
Total Bilirubin 0.4
AST 21
ALT 19
Alkaline Phosphatase 42
Vital Signs:
Vital Signs
Temp Pulse Resp BP Pulse Ox
98.7 F 60 14 147/45 96
01/27/24 04:01 01/27/24 07:20 01/27/24 07:20 01/27/24 06:00 01/27/24 07:20
I&O
01/26/24 01/27/24 01/28/24
06:59 06:59 06:59
Intake Total 540 / 540 3415 / 3415
Output Total 1350 / 1350
Balance 540 / 540 2064 / 2064
Review of Systems
-
History Source: Patient
Constitutional: Reports No Symptoms and Weakness
EENT: Reports No Symptoms Reported
Respiratory: Reports Cough
Cardiac: Reports No Symptoms
Physical Exam
-
General: No Apparent Distress and Comfortable
HEENT: Normocephalic, Atraumatic and Moist Mucous Membranes
Respiratory: Wheezes (Mild wheezing scattered bilaterally)
Cardiac: Regular Rhythm and S1/S2
Breast: Deferred by me
GI: Soft, Nontender, Nondistended and Normal Bowel Sounds
Skin: Warm and Dry
Neuro: Awake, Alert, Oriented and AO x 3
Psych: Calm
[2024-01-27] MEDS: ZETIA 10 MG PO (08:50)
[2024-01-27] MEDS: KEPPRA 750 MG PO ×2 (08:50→20:49)
[2024-01-27] MEDS: COLACE 100 MG PO ×2 (08:50→20:49)
[2024-01-27] MEDS: NORVASC 10 MG PO (08:50)
[2024-01-27] MEDS: MUCINEX 600 MG PO ×2 (08:50→20:49)
[2024-01-27] MEDS: LEXAPRO 20 MG PO (08:50)
--- NOTE | 2024-01-27 09:11 | PTCARENOTE ---
Patient received from material handler 1st shift. Patient resting comfortably in bed. AAO (although can be confused and agitated at times but has been pleasant), VSS. No events noted overnight. Was weaned off O2 and now on Room Air. NSS @ 100mL/hr. Requested
to have diet change to have K restriction due to elevated levels. No complaints of pain at this time. No tests scheduled at this time. Call coyne in reach.
--- NOTE | 2024-01-27 09:17 | PN.CDI ---
Addendum entered and electronically signed by Anthony Granger MD, Resident 01/27/24 17:02:
I do not feel comfortable diagnosing this patient with dementia based on these findings. He would need a workup by a neurologist before that diagnosis can be made. Thank you.
Original Note:
CDI
- -
CDI:
Physician Documentation Request
Admit Date: 01/25/24 04:57
Dear Doctor Elkin,
Please review the following and provide your response in the progress notes.
Clinical Indicators:
Pt admitted with COPD exacerbation.
H&P notes past medical history of Dementia.
01/24 RN note: 'Patient heard calling out saying he wanted to go home. He had also stated he did not like the soup and he threw it.'
01/25 RN Note: ' ..AAO (although can be confused and agitated at times)..'
Based on the above, could you clarify in the progress notes, the appropriate diagnosis, if significant, that supports the above abnormalities and additional evaluation, monitoring and/or treatment rendered:
Dementia
Dementia with agitation
Other
Use of terms such as suspected, likely, concern for, or probable (associated with a specific diagnosis that is being evaluated, monitored, or treated as if it exists) are acceptable and can be coded in the inpatient setting, when documented at the
time of discharge.
Thank you,
Allyn Bingham RN, BSN
CDI Specialist
Available via [employer]
Please use your independent medical judgment in providing your response.
[2024-01-27 09:39] LABS: Urine Sodium 139 mmol/L (30-90)
--- NOTE | 2024-01-27 13:07 | PTOTSP ---
Dysphagia Evaluation
Oral and pharyngeal stages of swallowing suspected to be grossly WFL based on clinical bedside swallowing evaluation. Patient with risk factors for dysphagia (i.e., COPD, CVA, TBI) and should follow precautions below.
Recommend:
1. Regular, Thin Liquids
2. Medications as best tolerated
3. Oral care 3x daily
4. Slow rate with breaks for breathing, reflux precautions
No further dysphagia therapy warranted. Please reconsult as appropriate.
[2024-01-27] MEDS: NSS IV (15:42)
--- NOTE | 2024-01-27 16:58 | PTCARENOTE ---
Report give to Allyson LOVE 4E. Patient taken to new room via patient transport. Patient left with all known belongings.
--- NOTE | 2024-01-27 17:22 | CM ---
Patient from [facility] with Hx CVA, TBI with Dx COPD Exacerbation, Hyperkalemia, BRIAN. Room air. Receiving IV Steroids. Per nursing; forgetful. PT & OT recommend skilled rehab.
[facility]: the ph for report [phone], fax [phone].
Plan return to [facility] when medically ready.
[2024-01-27] MEDS: PRAVACHOL 40 MG PO (17:38)
[2024-01-27] MEDS: LOVENOX 40 MG SC (17:38)
--- NOTE | 2024-01-27 18:20 | PTCARENOTE ---
Patient transferred from IMU into room 405-02. Vital signs stable. Patient oriented to room and use of call coyne and TV and bed controls. Patient verbalizes understanding of teaching. Patient assisted with ordering dinner. Patient resting in bed
comfortably at this time.
[2024-01-27] MEDS: VIBRAMYCIN 100 MG PO (20:49)
[2024-01-28 03:55] VITALS: BP 143/58
[2024-01-28 07:32] VITALS: BP 157/44
[2024-01-28] MEDS: DUONEB 3 ML INH ×4 (08:03→20:08)
[2024-01-28 08:26] LABS: ALT (SGPT) 22 U/L (0-50); AST (SGOT) 19 U/L (17-59); Albumin 3.1 g/dl (3.5-5.0); Alkaline Phosphatase 36 U/L (38-126); Blood Urea Nitrogen 40 mg/dl (9-20); Calcium 8.6 mg/dl (8.4-10.2); Carbon Dioxide 18 mmol/L (22-30); Chloride 113 mmol/L (98-107); Estimated Creatinine Clearance 67 ml/min; Glucose 102 mg/dl (70-99); Potassium 4.3 mmol/L (3.5-5.1); Sodium 141 mmol/L (135-145); Total Bilirubin 0.2 mg/dl (0.2-1.3); Total Protein 5.7 g/dl (6.3-8.2); eGFR > 60.00
[2024-01-28 08:39] LABS: Hematocrit 30.1 % (39.0-52.0); Hemoglobin 10.3 g/dL (13.0-18.0); Mean Corp Hgb Conc. 34.2 g/dL (33.0-37.0); Mean Corpuscular Hgb 31.6 pg (27.0-31.0); Mean Corpuscular Volume 92.3 fL (80.0-94.0); Mean Platelet Volume 11.4 fL (7.4-10.4); Platelet Count 83 10^3/uL (130-400); Red Blood Cell Count 3.26 10^6/uL (4.70-6.10); Red Cell Dist. Width 13.1 % (11.5-14.5)
--- NOTE | 2024-01-28 08:39 | W.PN.HOSP.TC ---
Today's Communication/Plan
-
likey dc in am
Assessment / Plan
Assessment / Plan
Physical Exam
-
General: No Apparent Distress and Comfortable
HEENT: Normocephalic, Atraumatic and Moist Mucous Membranes
Respiratory: No wheezes this morning
Cardiac: Regular Rhythm and S1/S2
Breast: Deferred by me
GI: Soft, Nontender, Nondistended and Normal Bowel Sounds
Skin: Warm and Dry
Neuro: Awake, Alert, Oriented and AO x 3
Psych: Calm
# AE COPD/ Acute on Chronic Hypoxemic Respiratory Failure -
Doing better, change to oral prednisone and taper
- weaned from Bi pap to RA
- Negative COVID and Flu
- DuoNeb q 4 hours standing and prn
- cont doxy for COPD exacerbation
- guaifenesin tab q 6 and w/ dextromethorphan prn
- transfer to tele
#Primary hypertension
- cont amlodipine
- Resume lisinopril
- echo 01/25 -Mild concentric left ventricular hypertrophy.
Left ventricular ejection fraction is 55-60%
# Seizure d/o
- Continue Keppra 750 bid
- CTM for recurrence
# GPC pos blood cx
- contaminant
- repeat blood cx NGTD
- not septic appearing
- cont doxy
# Thrombocytopenia, seems chronic issue
- cont to trend
- improving
- repeat CBC in am
# Elevated qTC
- avoid QT prolonging meds
- repeat EKG prn
# BRIAN
- resolved
- fena 2.1%
- improved with fluids and holding lisinopril
- likely has component of intrinsic kidney disease
# Hyperkalemia
- resolving
- given calcium gluc x 1
- cont DuoNeb
- Lokelma x 1
- BMP in am
# HLD- cont pravastatin
# Depression
Mood is pleasant
- cont Lexapro
Code Status - Full
Dispo- [facility]
Total time spent to see the patient, examine the patient on the floor, review data and lab results, discuss treatment plan with patient, nursing staff around 55 minutes
Anticipated Discharge: Within 24 hours
Subjective/Interval History
-
Date of Service: January 28, 2024
No chest pain
No sob
Objective Data
-
Labs:
Laboratory Results
01/28/24
07:37
WBC Pending
Hgb Pending
Hct Pending
Plt Count Pending
Sodium 141
Potassium 4.3
Chloride 113 H
Carbon Dioxide 18 L
BUN 40 H
Creatinine 1.1
Glucose 102 H
Calcium 8.6
Total Bilirubin 0.2
AST 19
ALT 22
Alkaline Phosphatase 36 L
Vital Signs:
Vital Signs
Temp Pulse Resp BP Pulse Ox
98 F 85 16 157/44 94
01/28/24 07:32 01/28/24 08:05 01/28/24 08:05 01/28/24 07:32 01/28/24 08:05
I&O
01/27/24 01/28/24 01/29/24
06:59 06:59 06:59
Intake Total 3415 / 3415 1080 / 1080
Output Total 1350 / 1350 775 / 775 1125 / 1125
Balance 2064 305 / 305 -1125 / -1125
[2024-01-28] MEDS: KEPPRA 750 MG PO ×2 (10:30→20:00)
[2024-01-28] MEDS: ZETIA 10 MG PO (10:30)
[2024-01-28] MEDS: VIBRAMYCIN 100 MG PO ×2 (10:30→20:00)
[2024-01-28] MEDS: LEXAPRO 20 MG PO (10:31)
[2024-01-28] MEDS: NORVASC 10 MG PO (10:31)
[2024-01-28] MEDS: MUCINEX 600 MG PO ×2 (10:31→20:00)
[2024-01-28] MEDS: ZESTRIL 40 MG PO (10:33)
[2024-01-28] MEDS: DELTASONE 40 MG PO (10:33)
[2024-01-28] MEDS: COLACE 100 MG PO (10:34)
[2024-01-28 11:27] VITALS: BP 133/46
[2024-01-28 15:51] VITALS: BP 127/45
[2024-01-28] MEDS: PRAVACHOL 40 MG PO (18:14)
[2024-01-28 19:55] VITALS: BP 149/69
[2024-01-28] MEDS: COLACE PO (19:58)
[2024-01-28 23:18] VITALS: BP 136/71
[2024-01-29] MEDS: TYLENOL 650 MG PO (03:00)
[2024-01-29 03:14] VITALS: BP 141/59
[2024-01-29 07:12] VITALS: BP 150/48
[2024-01-29] MEDS: DUONEB 3 ML INH ×3 (07:38→15:13)
[2024-01-29 08:12] LABS: Hematocrit 30.3 % (39.0-52.0); Hemoglobin 10.5 g/dL (13.0-18.0); Mean Corp Hgb Conc. 34.7 g/dL (33.0-37.0); Mean Corpuscular Hgb 30.6 pg (27.0-31.0); Mean Corpuscular Volume 88.3 fL (80.0-94.0); Mean Platelet Volume 11.2 fL (7.4-10.4); Platelet Count 86 10^3/uL (130-400); Red Blood Cell Count 3.43 10^6/uL (4.70-6.10); Red Cell Dist. Width 12.7 % (11.5-14.5); White Blood Cell Count 3.9 10^3/uL (4.8-10.8)
[2024-01-29 08:14] LABS: Blood Urea Nitrogen 36 mg/dl (9-20); Calcium 9.2 mg/dl (8.4-10.2); Carbon Dioxide 18 mmol/L (22-30); Chloride 111 mmol/L (98-107); Estimated Creatinine Clearance 73 ml/min; Glucose 109 mg/dl (70-99); Potassium 4.7 mmol/L (3.5-5.1); Sodium 138 mmol/L (135-145); eGFR > 60.00
[2024-01-29] MEDS: DELTASONE 40 MG PO (09:53)
[2024-01-29] MEDS: VIBRAMYCIN 100 MG PO (09:53)
[2024-01-29] MEDS: ZETIA 10 MG PO (09:53)
[2024-01-29] MEDS: COLACE 100 MG PO (09:53)
[2024-01-29] MEDS: LEXAPRO 20 MG PO (09:53)
[2024-01-29] MEDS: MUCINEX 600 MG PO (09:53)
[2024-01-29] MEDS: ZESTRIL 40 MG PO (09:53)
[2024-01-29] MEDS: NORVASC 10 MG PO (09:54)
[2024-01-29] MEDS: KEPPRA 750 MG PO (09:54)
--- NOTE | 2024-01-29 10:06 | W.PN.HOSP.TC ---
Today's Communication/Plan
-
Discharge
Assessment / Plan
Assessment / Plan
Physical Exam
-
General: No Apparent Distress and Comfortable
HEENT: Normocephalic, Atraumatic and Moist Mucous Membranes
Respiratory: No wheezes this morning
Cardiac: Regular Rhythm and S1/S2
Breast: Deferred by me
GI: Soft, Nontender, Nondistended and Normal Bowel Sounds
Skin: Warm and Dry
Neuro: Awake, Alert, Oriented and AO x 3
Psych: Calm
# AE COPD/ Acute on Chronic Hypoxemic Respiratory Failure -
Doing better, changed to oral prednisone and taper
- weaned from Bi pap to RA
- Negative COVID and Flu
- DuoNeb q 4 hours standing and prn
- cont doxy for COPD exacerbation
- guaifenesin tab q 6 and w/ dextromethorphan prn
#Primary hypertension
- cont amlodipine
- Resumed lisinopril
- echo 01/25 -Mild concentric left ventricular hypertrophy.
Left ventricular ejection fraction is 55-60%
# Seizure d/o
- Continue Keppra 750 bid
- CTM for recurrence
# GPC pos blood cx
- contaminant
- repeat blood cx NGTD
- not septic appearing
- cont doxy
# Thrombocytopenia, seems chronic issue
- improving
- No active bleeding. No bruising
# Elevated qTC, resolved.
- QT is normal
# BRIAN
- resolved
# Hyperkalemia
- resolved
# HLD- cont pravastatin
# Depression
Mood is pleasant
- cont Lexapro
Code Status - Full
Dispo- eventual dc back to [facility]
Total dc time spent to see the patient, examine the patient on the floor, review data and lab results, discuss discharge plan with patient, nursing staff around 65 minutes
Anticipated Discharge: Today
Subjective/Interval History
-
Date of Service: January 29, 2024
No sob
No chest pain
Objective Data
-
Labs:
Laboratory Results
01/29/24
06:54
WBC 3.9 L
Hgb 10.5 L
Hct 30.3 L
Plt Count 86 L
Sodium 138
Potassium 4.7
Chloride 111 H
Carbon Dioxide 18 L
BUN 36 H
Creatinine 1.0
Glucose 109 H
Calcium 9.2
Vital Signs:
Vital Signs
Temp Pulse Resp BP Pulse Ox
97.7 F 56 18 150/48 96
01/29/24 07:12 01/29/24 09:54 01/29/24 07:42 01/29/24 09:54 01/29/24 07:42
I&O
01/28/24 01/29/24 01/30/24
06:59 06:59 06:59
Intake Total 1080 / 1080 900 / 900
Output Total 775 / 775 2350 / 2350
Balance 305 / 305 -1450 / -1450
--- NOTE | 2024-01-29 10:47 | CM ---
CM following re: discharge planning.
Reviewed pt's chart, met yoan.
Discharge order is noted. pt is aware, expressed his agreement with discharge. IMM reviewed, placed on chart, pt has a copy.
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
'
CM left a message to [facility] liaison regarding pt's discharge.
[facility] nursing report: [phone],
Discharge instructions fax: [phone].
D/C plan: return back to [facility] for a snf care.
[2024-01-29 11:35] VITALS: BP 166/57
--- NOTE | 2024-01-29 12:04 | W.DCSUMMARY ---
Discharge Summary
Discharge Data
Date of Admission: 01/25/24
Date of Discharge: 01/29/24
-
Pending Results: No
Hospital Course
73 years old male with history of COPD presented to the hospital with history of fevers, cough and shortness of breath. Patient had hypoxia with oxygen saturation around 80%. He was given nebulizer treatment. He did not have hypotension. Patient
was diagnosed with COPD exacerbation that required noninvasive ventilatory support. He was given intravenous steroid and intravenous antibiotic. He was given nebulizer treatment [id number]. Blood culture did not show any growth. Urine
culture did not show any growth. MRSA screen was negative. He had 1 bottle of a blood culture that showed coagulase-negative Staphylococcus and that was considered as contaminant. Repeat blood culture did not show any growth. Patient was
transferred to telemetry floor. He was given oral antibiotic. He had negative COVID and flu screen test. Echocardiogram showed left ventricular ejection fraction of 55 to 60% with mild concentric left ventricular hypertrophy. Patient did not
have further hypoxia. He did not need oxygen supply. Steroid was changed to oral tapering prednisone regimen. Patient remained hemodynamically stable and was discharged back to snf in a stable condition peer
Discharge Plan
-
Patient Disposition: Assisted Living
Discharge Diagnosis/Procedures: Acute chronic obstructive pulmonary disease exacerbation.
Acute hypoxemic respiratory failure, resolved
Condition: Good
Diet: As tolerated
Blood Work: BMP in 3 days
Referrals:
Meghana Kamara DO [Active] - in two to four weeks
Sky Tinoco MD [Family Provider] -
Prescriptions:
New
doxycycline hyclate 100 mg Capsule
100 mg PO BID Qty: 6 0RF
guaifenesin 600 mg Tablet Extended Release 12hr
600 mg PO Q12 Qty: 6 0RF
ipratropium-albuterol 0.5 mg-3 mg(2.5 mg base)/3 mL Solution For Nebulization
3 ml inhalation R TID Qty: 90 0RF
prednisone 10 mg tablet
30 mg PO DAILY Qty: 12 0RF
Rx Instructions:
30 mg for 2 days, 20 mg for 2 days, 10 mg for 2 days
Continued
acetaminophen [Tylenol] 325 mg Tablet
650 mg PO Q4 PRN (Reason: fever/pain)
albuterol sulfate 2.5 mg /3 mL (0.083 %) Solution For Nebulization
2.5 mg INHALATION Q6H PRN (Reason: wheezing)
loperamide 2 mg Capsule
2 mg PO Q4H PRN (Reason: diarrhea)
pravastatin 40 mg Tablet
40 mg PO HS
magnesium hydroxide [Milk of Magnesia] 400 mg/5 mL Suspension
30 ml PO PRN PRN (Reason: constipation)
amlodipine 10 mg Tablet
10 mg PO DAILY
bisacodyl [Dulcolax (bisacodyl)] 10 mg Suppository
10 mg MO PRN PRN (Reason: constipation)
Fleet Enema 19-7 gram/118 mL Enema
118 ml MO PRN PRN (Reason: constipation)
docusate sodium [Colace] 100 mg Capsule
100 mg PO BID
levetiracetam 750 mg Tablet
750 mg PO BID
albuterol sulfate 90 mcg/actuation Hfa Aerosol Inhaler
2 puff INHALATION Q6H PRN (Reason: wheezing)
lisinopril 40 mg Tablet
40 mg PO DAILY
cholecalciferol (vitamin D3) [Vitamin D3] 10 mcg (400 unit) Capsule
See Rx Instructions .ROUTE .COMPLEX
Rx Instructions:
take 2 capsules one time a day
escitalopram oxalate [Lexapro] 20 mg Tablet
20 mg PO DAILY
ezetimibe 10 mg Tablet
10 mg PO DAILY
Changed
fluticasone propionate 50 mcg/actuation [place],Suspension
2 spray INTRANASAL DAILYPRN PRN (Reason: nasal congestion) Qty: 0 0RF
Discontinued
cefpodoxime 100 mg Tablet
100 mg PO BID
Rx Instructions:
until 01/29/24
Discharge Orders:
Discharge Patient (As Directed); Ordered 01/29/24
Ordered By: Bethel Delgadillo
Discharge Date and Time
Print Language: KYRGYZ
[2024-01-29 15:09] VITALS: BP 135/45
--- NOTE | 2024-01-29 15:20 | PTCARENOTE ---
Called and gave update report to Steven Ramires. Spoke with Germaine, 'Jen RN' who will give updates to the receiving RN.
Because patient unable to verify when given vaccinations, Steven Ramires advised against giving vaccinations at this time/they could administer them to him once determined when last given.
== END 2024-01-29 16:21 | disposition home health service (06) | DRG 190 ==
LOC: 4 EAST ACU 04:57
PROVIDERS: Family Medicine; ADMITTING PHYSICIAN Internal Medicine; ATTENDING PHYSICIAN Internal Medicine; EMERGENCY PHYSICIAN Student in an Organized Health Care Education/Training Program; FAMILY PHYSICIAN Internal Medicine
PROC: 5A09357 Assistance with Respiratory Ventilation, Less than 24 Consecutive Hours, Continuous Positive Airway Pressure (ICD-10-PCS; 2024-01-25)
DX: J44.1 Chronic obstructive pulmonary disease with (acute) exacerbation (principal); J96.21 Acute and chronic respiratory failure with hypoxia; N17.9 Acute kidney failure, unspecified; F17.200 Nicotine dependence, unspecified, uncomplicated; I50.9 Heart failure, unspecified; I11.0 Hypertensive heart disease with heart failure; R56.9 Unspecified convulsions; D69.6 Thrombocytopenia, unspecified; E87.5 Hyperkalemia; E78.5 Hyperlipidemia, unspecified; F32.A Depression, unspecified
CPT/HCPCS: 71045; 80048; 80053; 80202; 81003; 82570; 82805; 83605; 83735; 83880; 84145; 84300; 84484; 85025; 85027; 85610; 85730; 86803; 87040; 87070; 87086; 87150; 87205; 87502; 87811; 92610; 93005; 93306; 94640; 94660; 96365; 97163; 97167; 99285

== ENCOUNTER 2024-11-30 10:27 | Emergency (ER) | payer MEDICARE, OTHER, SELFPAY ==
[2024-11-30 10:30] VITALS: BP 145/47; BMI 31.5
[2024-11-30 10:32] VITALS: BP 145/47
--- NOTE | 2024-11-30 10:47 | ED.GENMED ---
History of Present Illness
General
Chief Complaint: DVT/Possible Blood Clot
Source: patient and ambulance crew
Time Seen by Provider: 11/30/24 10:42
History of Present Illness
History of Present Illness:
74-year-old male sent to the emergency room from [facility] for evaluation of left lower extremity swelling and suspected DVT. Patient was noted to have lower extreme edema by staff over the past few days. He evidently had an
ultrasound performed via a mobile service and the tech gave a preliminary report of a DVT. There is no official report. Patient denies any complaints. He denies any chest pain or shortness of breath. He has treated does not understand why he is
here.
Phy Exam
Physical Exam
Physical Exam:
General: Awake, Alert, Oriented X3. No acute distress. Appears chronically ill
Vitals: unremarkable
Head: Atraumatic
Eyes: Pupils equal, EOMI
Throat: Airway intact, no exudates
Neck: Trachea midline
Lungs: Clear and equal b/l
Heart: Regular rate, no murmurs
Abd: Soft, Nontender, No pulsatile mass
Neuro: Nonfocal
Skin: Warm, dry, no rash
Extremities: pulses equal b/l, bilateral lower extremity swelling but left much greater than right. Left lower extremity is not firm. It is well-perfused.
Course
Orders/Labs/Results
Orders:
Orders
11/30/24 10:47
US Periph Venous LOWER Ext LT Urgent
Comment:
Reason For Exam: swelling
11/30/24 11:45
Basic Metabolic Panel Urgent
Complete Blood Count/With Diff Urgent
11/30/24 13:31
Apixaban [Eliquis] 10 mg PO NOW STA
Abnormal Lab Results
11/30/24
11:45
RBC 3.96 L 10^6/uL
(4.70-6.10)
Hgb 11.5 L g/dL
(13.0-18.0)
Hct 34.6 L %
(39.0-52.0)
Plt Count 71 L 10^3/uL
(130-400)
MPV 11.1 H fL
(7.4-10.4)
Absolute Lymphs (auto) 0.9 L 10^3/uL
(1.2-3.4)
Immature Gran % 0.6 H %
(0-0.5)
Lymphocytes % 17.6 L %
(20.5-51.1)
Monocytes % 10.7 H %
(1.7-9.3)
Eosinophils % 12.3 H %
(0-6)
Chloride 109 H mmol/L
(98-107)
BUN 34 H mg/dl
(9-20)
Creatinine 1.6 H mg/dL
(0.7-1.3)
Glucose 115 H mg/dl
(70-99)
Calcium 8.3 L mg/dl
(8.4-10.2)
11/30/24 11:45
11/30/24 11:45
Vital Signs
Initial and Last Documented VS:
Initial Vital Signs
Temp Pulse Resp BP Pulse Ox
98.2 F 68 16 145/47 95
11/30/24 10:30 11/30/24 10:30 11/30/24 10:30 11/30/24 10:30 11/30/24 10:30
Last Documented Vital Signs
Temp Pulse Resp BP Pulse Ox
98.2 F 65 16 142/42 95
11/30/24 10:30 11/30/24 15:13 11/30/24 15:13 11/30/24 15:07 11/30/24 15:13
MDM/Problems Addressed
Differential Diagnosis Includes:
DVT, venous stasis, peripheral edema
MDM/Problems Addressed:
Patient presents with swelling provide left lower extremity. DVT study is positive. Reviewed patient labs she does have some mild renal insufficiency however his weight is 105 kg. Platelet count is 71. Treatment typically is Eliquis 10 mg twice
a day for 7 days then 5 mg twice a day. Given the thrombocytopenia I discussed the patient's presentation with Dr. De Luna is on-call for hematology. He feels that the patient's platelet count is adequate to safely administer normal dose Eliquis.
This patient has been seen in their office before and we will strongly recommend that he follows up with them as an outpatient. Patient has no chest pain no shortness of breath and no evidence for significant PE. If he did have a small or even
moderate PE the treatment would be Eliquis regardless. Patient stable for discharge back to his facility.
*Radiology
Radiology exam reviewed: radiology read reviewed
*Pulse Oximetry
SaO2: 95
Oxygen Mode of Delivery: Room air
Patient hypoxic: no
*[employer] Interpretation
Rate: normal
Interpretation: normal
Heart Rate: 65
Rhythm: sinus
*Critical Care Note
Total Time (30-74mins, 75-104mins- exclusive of procedures): Not Applicable
ED Attending Note
-
Portions of this chart may have been created with voice recognition software.� Occasional wrong word or��sound alike� substitutions may have occurred due to the inherent limitations of voice recognition software.
Discharge Plan
Departure
Patient Disposition: Custodial/SNF
Date of Disposition: 11/30/24
Time of Disposition: 13:32
Condition: Fair
Discharge Problem:
DVT of lower extremity (deep venous thrombosis)
Instructions: Deep Vein Thrombosis (Blood Clots in the Legs) (DC)
Prescriptions:
New
apixaban 5 mg tablet
5 mg PO BID Qty: 74 0RF
Rx Instructions:
2 tablets twice a day for seven days then one table twice a day
No Action
acetaminophen [Tylenol] 325 mg Tablet
650 mg PO Q4 PRN (Reason: fever/pain)
albuterol sulfate 2.5 mg /3 mL (0.083 %) Solution For Nebulization
2.5 mg INHALATION Q6H PRN (Reason: wheezing)
loperamide 2 mg Capsule
2 mg PO Q4H PRN (Reason: diarrhea)
pravastatin 40 mg Tablet
40 mg PO HS
magnesium hydroxide [Milk of Magnesia] 400 mg/5 mL Suspension
30 ml PO PRN PRN (Reason: constipation)
amlodipine 10 mg Tablet
10 mg PO DAILY
bisacodyl [Dulcolax (bisacodyl)] 10 mg Suppository
10 mg GA PRN PRN (Reason: constipation)
Fleet Enema 19-7 gram/118 mL Enema
118 ml GA PRN PRN (Reason: constipation)
docusate sodium [Colace] 100 mg Capsule
100 mg PO BID
levetiracetam 750 mg Tablet
750 mg PO BID
albuterol sulfate 90 mcg/actuation Hfa Aerosol Inhaler
2 puff INHALATION Q6H PRN (Reason: wheezing)
lisinopril 40 mg Tablet
40 mg PO DAILY
cholecalciferol (vitamin D3) [Vitamin D3] 10 mcg (400 unit) Capsule
See Rx Instructions .ROUTE .COMPLEX
Rx Instructions:
take 2 capsules one time a day
escitalopram oxalate [Lexapro] 20 mg Tablet
20 mg PO DAILY
ezetimibe 10 mg Tablet
10 mg PO DAILY
doxycycline hyclate 100 mg Capsule
100 mg PO BID Qty: 6 0RF
guaifenesin 600 mg Tablet Extended Release 12hr
600 mg PO Q12 Qty: 6 0RF
ipratropium-albuterol 0.5 mg-3 mg(2.5 mg base)/3 mL Solution For Nebulization
3 ml inhalation R TID Qty: 90 0RF
prednisone 10 mg tablet
30 mg PO DAILY Qty: 12 0RF
Rx Instructions:
30 mg for 2 days, 20 mg for 2 days, 10 mg for 2 days
fluticasone propionate 50 mcg/actuation [place],Suspension
2 spray INTRANASAL DAILYPRN PRN (Reason: nasal congestion) Qty: 0 0RF
Referrals:
Sky Tinoco MD [Family Provider]
Rob De Luna MD [Active, Hematology / Oncology]
Activity Restrictions/Additional Instructions:
Arthur does have a left leg DVT. The treatment for this is an oral anticoagulant, Eliquis. Arthur should take 2 pills twice a day for one week (tomorrow until 12/07) and then take one pill twice a day. He needs to follow up with the
hematologists.
Interventions
Interventions:
*General Assessment Last Done: 11/30/24 13:00
*ED- Fall Risk Assessment Last Done: 11/30/24 13:00
ED-Peripheral Vascular Assessment Last Done: 11/30/24 11:05
ED-Skin Assessment Last Done: 11/30/24 11:06
Discharge Date and Time
Print Language: EMIRATI
[2024-11-30 11:59] LABS: Hematocrit 34.6 % (39.0-52.0); Hemoglobin 11.5 g/dL (13.0-18.0); Mean Corp Hgb Conc. 33.2 g/dL (33.0-37.0); Mean Corpuscular Volume 87.4 fL (80.0-94.0); Nucleated Red Blood Cells % 0 % (-); Platelet Count 71 10^3/uL (130-400); Red Cell Dist. Width 13.1 % (11.5-14.5)
[2024-11-30 12:21] LABS: Blood Urea Nitrogen 34 mg/dl (9-20); Calcium 8.3 mg/dl (8.4-10.2); Carbon Dioxide 27 mmol/L (22-30); Chloride 109 mmol/L (98-107); Estimated Creatinine Clearance 52 ml/min; Glucose 115 mg/dl (70-99); Potassium 4.7 mmol/L (3.5-5.1); Sodium 137 mmol/L (135-145); eGFR 45.21
[2024-11-30] MEDS: ELIQUIS 10 MG PO (13:52)
[2024-11-30 15:07] VITALS: BP 142/42
[2024-11-30 15:44] VITALS: BP 139/54
[2024-11-30 15:46] VITALS: BP 143/50
== END 2024-11-30 15:50 ==
LOC: EMR 10:27
PROVIDERS: EMERGENCY PHYSICIAN Emergency Medicine; FAMILY PHYSICIAN Internal Medicine
DX: I82.412 Acute embolism and thrombosis of left femoral vein (principal); I82.452 Acute embolism and thrombosis of left peroneal vein; I82.432 Acute embolism and thrombosis of left popliteal vein; I82.492 Acute embolism and thrombosis of other specified deep vein of left lower extremity; D69.6 Thrombocytopenia, unspecified; N28.9 Disorder of kidney and ureter, unspecified; Z79.01 Long term (current) use of anticoagulants
CPT/HCPCS: 99284; 80048; 85025; 93971

== ENCOUNTER 2025-02-11 17:21 | Inpatient (IN) | payer MEDICARE, OTHER, SELFPAY ==
[2025-02-11] VITALS (8 sets, daily range): BP systolic 141–160; BP diastolic 51–72; BMI 30.3; BMI 29.5
--- NOTE | 2025-02-11 14:52 | ED.GENMED ---
History of Present Illness
<Ginny Pierre MD, Resident - Last Filed: 02/11/25 15:33>
General
Chief Complaint: Change in Mental Status
Time Seen by Provider: 02/11/25 14:35
History of Present Illness
History of Present Illness:
74-year-old male with past medical history of COPD, CVA, dementia, recent DVT started on Eliquis 11/30/24 presents from [facility] via EMS for concern of lethargy and covid (+) test. The nurse taking care of him noticed some a change in his
mental status and called EMS for concern of stroke. Upon EMS arriving, [facility] let them know he was covid positive. Patient is a poor historian with a history of CVA and dementia and it is unclear what his baseline neurological deficits and
mental status are. He is unsure why he is in the hospital or when his symptoms started. He did state today he felt SOB, sore throat, runny nose, cough and diarrhea. He denies any chest pain, N/V/C, ab pain. He does not remember ever having a stroke
nor aware of what his baseline defitis are.
Past History
<Ginny Pierre MD, Resident - Last Filed: 02/11/25 15:33>
Past History
ED Past Medical History: Other (COPD, vascular dementia, cerebral infarction, dysphagia, osteoarthritis, DVT, CKD stage IIIb,, ambulatory dysfunction, depression, epilepsy, bradycardia, history of traumatic brain injury)
ED Past Surgical History: Other
Social History
Tobacco: Former smoker
Alcohol: Other
Drug: Other
Living: other ([facility] )
Family History
Family History: Unable to obtain
Review of Systems
<Ginny Pierre MD, Resident - Last Filed: 02/11/25 15:33>
Review of Systems
Constitutional: Reports no symptoms
EENT: Reports sore throat and runny nose
Respiratory: Reports cough and trouble breathing
Cardiac: Reports no symptoms
ABD/GI: Reports diarrhea
: Reports no symptoms
Neurological: Reports no symptoms
Hematologic/Lymphatic: Reports no symptoms
Phy Exam
<Ginny Pierre MD, Resident - Last Filed: 02/11/25 15:33>
Physical Exam
Physical Exam:
General: Appears ill, respiratory distress
HEENT: Pharyngeal erythema, inflamed nasal turbinates, PERRLA
Neck: Supple
Cardiac: Regular S1, S2
Respiratory: End expiratory wheezing, decreased breath sounds bilaterally
Abdomen: Soft, nontender, nondistended, increased bowel sounds
Extremities: Peripheral edema, no erythema
Neurologic: AAO only to person and place, not time. Unable to follow commands with left arm. Generalized weakness and unwilling to participate with full neurological exam.
Psych: Confused
Course
<Ginny Pierre MD, Resident - Last Filed: 02/11/25 15:33>
Orders/Labs/Results
Orders:
Orders
02/11/25 14:37
Electrocardiogram (*1) Urgent
Reason for Study: Shortness of Breath
EKG- Treatment ONCE
CR Chest - 2 Views Urgent
Comment:
Reason For Exam: cough, covid
02/11/25 14:43
COVID-19 Antigen Urgent
Source: Nasal Swab
Complete Blood Count/With Diff Urgent
Comprehensive Metabolic Panel Urgent
Influenza A+B Rapid Molecular Urgent
LUIS FELIPE Source: Nasal Swab
Specimen Description:
02/11/25 15:01
Dexamethasone Sod Phosphate [Decadron] 10 mg IV NOW STA
Ipratropium/Albuterol Sulfate [Duoneb] 3 ml INH R NOW ONE
02/11/25 15:05
Acetaminophen 1000MG/100Ml [Ofirmev] 1,000 mg in 100 ml IV ONCE
Acetaminophen IV Indication:: No TN & No Enteral Access
Abnormal Lab Results
02/11/25
14:43
RBC 4.48 L 10^6/uL
(4.70-6.10)
Hgb 12.9 L g/dL
(13.0-18.0)
Hct 38.6 L %
(39.0-52.0)
Plt Count 59 L 10^3/uL
(130-400)
MPV 12.1 H fL
(7.4-10.4)
Absolute Lymphs (auto) 0.5 L 10^3/uL
(1.2-3.4)
Neutrophils % 81.7 H %
(42.2-75.2)
Lymphocytes % 6.4 L %
(20.5-51.1)
Chloride 113 H mmol/L
(98-107)
BUN 28 H mg/dl
(9-20)
Creatinine 1.7 H mg/dL
(0.7-1.3)
Glucose 134 H mg/dl
(70-99)
Total Protein 6.2 L g/dl
(6.3-8.2)
Albumin 3.3 L g/dl
(3.5-5.0)
02/11/25 14:43
02/11/25 14:43
Vital Signs
Initial and Last Documented VS:
Initial Vital Signs
Temp Pulse Resp BP Pulse Ox
100.5 F H 97 22 156/72 93
02/11/25 14:37 02/11/25 14:37 02/11/25 14:37 02/11/25 14:37 02/11/25 14:37
Last Documented Vital Signs
Temp Pulse Resp BP Pulse Ox
100.5 F H 99 23 156/72 91
02/11/25 14:37 02/11/25 14:45 02/11/25 14:45 02/11/25 14:37 02/11/25 14:54
<Melanie Max, DO - Last Filed: 02/11/25 16:21>
Orders/Labs/Results
Orders:
Orders
02/11/25 14:37
Electrocardiogram (*1) Urgent
Reason for Study: Shortness of Breath
EKG- Treatment ONCE
CR Chest - 2 Views Urgent
Comment:
Reason For Exam: cough, covid
02/11/25 14:43
COVID-19 Antigen Urgent
Source: Nasal Swab
Complete Blood Count/With Diff Urgent
Comprehensive Metabolic Panel Urgent
Influenza A+B Rapid Molecular Urgent
LUIS FELIPE Source: Nasal Swab
Specimen Description:
02/11/25 15:01
Dexamethasone Sod Phosphate [Decadron] 10 mg IV NOW STA
Ipratropium/Albuterol Sulfate [Duoneb] 3 ml INH R NOW ONE
02/11/25 15:05
Acetaminophen 1000MG/100Ml [Ofirmev] 1,000 mg in 100 ml IV ONCE
Acetaminophen IV Indication:: No TN & No Enteral Access
Abnormal Lab Results
02/11/25
14:43
RBC 4.48 L 10^6/uL
(4.70-6.10)
Hgb 12.9 L g/dL
(13.0-18.0)
Hct 38.6 L %
(39.0-52.0)
Plt Count 59 L 10^3/uL
(130-400)
MPV 12.1 H fL
(7.4-10.4)
Absolute Lymphs (auto) 0.5 L 10^3/uL
(1.2-3.4)
Neutrophils % 81.7 H %
(42.2-75.2)
Lymphocytes % 6.4 L %
(20.5-51.1)
Chloride 113 H mmol/L
(98-107)
BUN 28 H mg/dl
(9-20)
Creatinine 1.7 H mg/dL
(0.7-1.3)
Glucose 134 H mg/dl
(70-99)
Total Protein 6.2 L g/dl
(6.3-8.2)
Albumin 3.3 L g/dl
(3.5-5.0)
02/11/25 14:43
02/11/25 14:43
Vital Signs
Initial and Last Documented VS:
Initial Vital Signs
Temp Pulse Resp BP Pulse Ox
100.5 F H 97 22 156/72 93
02/11/25 14:37 02/11/25 14:37 02/11/25 14:37 02/11/25 14:37 02/11/25 14:37
Last Documented Vital Signs
Temp Pulse Resp BP Pulse Ox
100.5 F H 99 23 156/72 91
02/11/25 14:37 02/11/25 14:45 02/11/25 14:45 02/11/25 14:37 02/11/25 14:54
<Ginny Pierre MD, Resident - Last Filed: 02/11/25 15:33>
MDM/Problems Addressed
Differential Diagnosis Includes:
Covid, COPD exacerbation, URI infection, pneumonia, stroke, TIA
MDM/Problems Addressed:
Respiratory distress and lethargy most likely explained by COPD exacerbation secondary to covid as febrile with positive covid test at long term. Will order chest x-ray, basic labs, covid and flu swabs. Start on nebs and steroids. O2 for signs of
respiratory distress.
Chronic conditions affecting care: COPD and Other (CVA)
Acute Exacerbation and/or Progression of Chronic Illness: COPD
<Ginny Pierre MD, Resident - Last Filed: 02/11/25 15:33>
*Pulse Oximetry
SaO2: 91
Oxygen Mode of Delivery: Room air
Patient hypoxic: no
*Critical Care Note
Total Time (30-74mins, 75-104mins- exclusive of procedures): Not Applicable
ED Attending Note
<Ginny Pierre MD, Resident - Last Filed: 02/11/25 15:33>
-
Portions of this chart may have been created with voice recognition software.� Occasional wrong word or��sound alike� substitutions may have occurred due to the inherent limitations of voice recognition software.
<Melanie Santana DO - Last Filed: 02/11/25 16:21>
ED Attending Note
Patient seen and examined by attending physician: Yes
I performed the substantive portion of visit, reviewed & personally made and approve the management plan that is documented in note by myself or ZACH.: Yes
I performed a history and physical exam of patient and discussed management with resident, I reviewed resident's note and agree with documented findings and plan of care.: Yes
ED Attending Note:
74-year-old male with history of dementia, COPD, CVA with dysphagia, PE and DVT on Eliquis presenting to the emergency department for increased lethargy. Patient arrives from [facility] where he was noted to be lethargic. Staff was initially
concern for stroke given prior history, however on medics arrival they checked a COVID test due to low-grade temperature and he was COVID-positive. Patient himself is a limited historian. Does note a cough. Denies any significant difficulty or
chest pain. Denies abdominal pain. Denies additional acute medical complaint
On exam, patient is in no acute distress, however does appear tachypneic with diminished air movement bilaterally and end expiratory wheezing. Temperature is 100.5 rectally, however otherwise hemodynamically stable. He is currently awake and
alert, however not oriented, suspected baseline. Suspect that increased lethargy is from underlying infection, likely exacerbating COPD. Will obtain laboratory analysis and chest x-ray imaging. Will treat with DuoNebs and steroids and reassess
16:20 -on reassessment, patient does have some improvement in work of breathing, remains slightly tachypneic. Chest x-ray with small pleural effusion, no obvious pneumonia. COVID is negative here, however presumed positive given positive test
prior to arrival. Given patient's underlying COPD and, plan for admission for respiratory monitoring and oxygen support
Discharge Plan
Departure
Prescriptions:
No Action
acetaminophen [Tylenol] 325 mg Tablet
650 mg PO Q4HPRN PRN (Reason: fever/pain)
albuterol sulfate 2.5 mg /3 mL (0.083 %) Solution For Nebulization
2.5 mg INHALATION Q6H PRN (Reason: wheezing)
pravastatin 40 mg Tablet
40 mg PO HS
magnesium hydroxide [Milk of Magnesia] 400 mg/5 mL Suspension
30 ml PO PRN PRN (Reason: constipation, no BM X 3 D)
amlodipine 10 mg Tablet
10 mg PO DAILY
Fleet Enema 19-7 gram/118 mL Enema
118 ml TN DAILYPRN PRN (Reason: constipation)
docusate sodium [Colace] 100 mg Capsule
100 mg PO BID
levetiracetam 750 mg Tablet
750 mg PO BID
albuterol sulfate 90 mcg/actuation Hfa Aerosol Inhaler
2 puff INHALATION Q6H PRN (Reason: wheezing)
escitalopram oxalate [Lexapro] 20 mg Tablet
20 mg PO DAILY
ezetimibe 10 mg Tablet
10 mg PO DAILY
divalproex [Depakote ER] 500 mg Tablet Extended Release 24 Hr
500 mg PO BID
Lokelma 10 gram Powder In Packet
10 g PO MOWEFR
Rx Instructions:
EVERY Tuesday
cholecalciferol (vitamin D3) [Vitamin D3] 50 mcg (2,000 unit) Tablet
50 mcg PO DAILY
bisacodyl [Dulcolax (bisacodyl)] 10 mg Suppository
10 mg TN DAILY PRN (Reason: constipation)
apixaban 5 mg tablet
5 mg PO BID
Rx Instructions:
2 tablets twice a day for seven days then one table twice a day
Referrals:
Sky Tinoco MD [Family Provider]
Interventions
Interventions:
*Risk Screen - Suicide Last Done: 02/11/25 14:37
*General Assessment Last Done: 02/11/25 14:37
*Neglect/Abuse Screening Last Done: 02/11/25 14:37
*ED- Fall Risk Assessment Last Done: 02/11/25 14:37
*ED COVID-19 Vaccine History Last Done: 02/11/25 14:37
*ED Influenza Vaccine History Last Done: 02/11/25 14:37
ED- Pulmonary Assessment Last Done: 02/11/25 14:37
ED-Psychological Assessment Last Done: 02/11/25 14:37
ED- Neurological Assessment Last Done: 02/11/25 14:37
ED- Cardiac Assessment Last Done: 02/11/25 14:37
ED Swallowing Screen Last Done: 02/11/25 14:37
Discharge Date and Time
Print Language: SAUDI ARABIAN
--- NOTE | 2025-02-11 15:00 | EDRN ---
per Dr. Santana the pt was placed on 2L NC, Sp02 went from 92% to 98%
[2025-02-11 15:03] LABS: ALT (SGPT) 11 U/L (0-50); AST (SGOT) 18 U/L (17-59); Albumin 3.3 g/dl (3.5-5.0); Alkaline Phosphatase 52 U/L (38-126); Blood Urea Nitrogen 28 mg/dl (9-20); Calcium 8.6 mg/dl (8.4-10.2); Carbon Dioxide 24 mmol/L (22-30); Chloride 113 mmol/L (98-107); Estimated Creatinine Clearance 46 ml/min; Glucose 134 mg/dl (70-99); Hematocrit 38.6 % (39.0-52.0); Hemoglobin 12.9 g/dL (13.0-18.0); Mean Corp Hgb Conc. 33.4 g/dL (33.0-37.0); Mean Corpuscular Volume 86.2 fL (80.0-94.0); Nucleated Red Blood Cells % 0 % (-); Platelet Count 59 10^3/uL (130-400); Potassium 4.3 mmol/L (3.5-5.1); Red Cell Dist. Width 13.3 % (11.5-14.5); Sodium 137 mmol/L (135-145); Total Protein 6.2 g/dl (6.3-8.2); eGFR 42.04
[2025-02-11 15:16] LABS: COVID-19 Antigen Negative (Negative)
[2025-02-11] MEDS: OFIRMEV 100 IV (15:34)
[2025-02-11] MEDS: DECADRON 10 MG IV (15:35)
[2025-02-11] MEDS: DUONEB 3 ML INH ×2 (15:35→21:25)
--- NOTE | 2025-02-11 16:17 | HPS.HSE ---
Addendum entered and electronically signed by Lani Russo MD 02/11/25 23:22:
BNP 20,000. 40 IV lasix given. Check echo.
Addendum entered and electronically signed by Lani Russo MD 02/11/25 19:48:
This is an addendum to H&P written by Susan Day on 02/11/2025. �Patient seen and examined independently with RIPSAW MATCHER.
74-year-old male past medical history of COPD, CVA with residual left-sided weakness, dementia, history of seizures, hypertension, recent DVT started on Eliquis on 11/30, amegakaryocytic thrombocytopenia, CKD 3b baseline creatinine 1.2-1.3 presenting
with presenting for lethargy and positive COVID test. �Nurse noticed change in mental status and called EMS for concern for stroke.
Patient has shortness of breath, sore throat runny nose and cough and diarrhea.
Vital signs shows temperature of 100.5. �O2 saturation 92%. �Bilateral rhonchi on examination, bilateral lower extremity edema.
Labs show platelets of 59 slightly lower than baseline 80s to 90s. �Creatinine 1.7.
Chest x-ray shows mild interstitial cardiogenic pulmonary edema, mild cardiomegaly, small left pleural effusion. �COVID-negative here. �Influenza negative.
Patient with acute metabolic encephalopathy secondary to COVID infection with hypoxemia.
DuoNebs, dexamethasone 6 mg daily. �
Patient also with BRIAN possibly cardiorenal. �Chest x-ray suggesting heart failure. �Check cardiac BNP and will likely diurese.
Original Note:
Family Physician
-
Family Physician: Sky Tinoco
Chief Complaint
-
change in mental status
History of Present Illness
Patient is a 74-year-old male with past medical history significant for hypertension, hypercholesterolemia, dementia, seizures, CKD IIIb, DVT, COPD and CVA who presented to [facility] ED via EMS from [facility] for evaluation of change in mental
status. HPI gathered through chart review and report from ED staff. Patient nurse noticed changes in mental status and called EMS. EMS arrived and reports that Steven Ramires reported patient is positive. Patient minimally responsive during
assessment and poor historian. Patient reported to ED he felt SOB, had sore throat, runny nose, cough and diarrhea.
Medical History
Past Medical History
Past Medical History: Reports Other
Additional Past Medical History:
hypertension
hypercholesterolemia
dementia
seizures
CKD IIIb
DVT
COPD
CVA
Past Surgical History: Reports Orthopedic
Social History
Tobacco: Smoker
Alcohol: None
Drug: None
Living: Assisted
Employment: Disabled
Family History
Family History: Not pertinent
Allergies / Home Medications
Allergies reflects when Allergies were last updated in [email or web address].
Home Medications with original date entered in [email or web address]
Allergy/Medication List:
Allergies
Allergy/AdvReac Type Severity Reaction Status Date / Time
No Known Allergies Allergy Unverified 11/30/24 10:36
Home Medications
acetaminophen 325 mg tablet (Tylenol) 650 mg PO Q4HPRN PRN fever/pain 01/25/24
albuterol sulfate 2.5 mg/3 mL (0.083 %) solution for nebulization 2.5 mg inhalation Q6H PRN wheezing 01/25/24
albuterol sulfate 90 mcg/actuation aerosol inhaler 2 puff inhalation Q6H PRN wheezing 01/25/24
amlodipine 10 mg tablet 10 mg PO DAILY Blood Pressure 01/25/24
docusate sodium 100 mg capsule (Colace) 100 mg PO BID stool softener 01/25/24
escitalopram oxalate 20 mg tablet (Lexapro) 20 mg PO DAILY Mental Health/Anxiety 01/25/24
ezetimibe 10 mg tablet 10 mg PO DAILY High Cholesterol 01/25/24
levetiracetam 750 mg tablet 750 mg PO BID Seizures 01/25/24
magnesium hydroxide 400 mg/5 mL oral suspension (Milk of Magnesia) 30 ml PO PRN PRN constipation, no BM X 3 D 01/25/24
pravastatin 40 mg tablet 40 mg PO HS High Cholesterol 01/25/24
sodium phosphates 19 gram-7 gram/118 mL enema (Fleet Enema) 118 ml HI DAILYPRN PRN constipation 01/25/24
apixaban 5 mg tablet 5 mg PO BID Blood Clot Prevention/Tx 02/11/25
bisacodyl 10 mg rectal suppository (Dulcolax (bisacodyl)) 10 mg HI DAILY PRN constipation 02/11/25
cholecalciferol (vitamin D3) 50 mcg (2,000 unit) tablet (Vitamin D3) 50 mcg PO DAILY 02/11/25
divalproex 500 mg tablet,extended release 24 hr (Depakote ER) 500 mg PO BID 02/11/25
sodium zirconium cyclosilicate 10 gram oral powder packet (Lokelma) 10 g PO MOWEFR hyperkalemia 02/11/25
Review of Systems
-
Unable to obtain full review of systems at this time due to: Dementia
History Source: Patient and Assisted
Constitutional: Reports Fever
EENT: Reports Sore Throat and Runny Nose
Respiratory: Reports Cough and Trouble Breathing (shortness of breath )
Abdomen/GI: Reports Diarrhea
Physical Exam
Vital Signs
Vital Signs
Temp Pulse Resp BP Pulse Ox
100.5 F H 99 23 156/72 91
02/11/25 14:37 02/11/25 14:45 02/11/25 14:45 02/11/25 14:37 02/11/25 14:54
Physical Exam
General: Well Developed, No Apparent Distress, Appears Chronically Ill and Obese
HEENT: NormoCephalic, PERRLA, Nose Appears Normal and Ears Appear Normal
Respiratory: Rhonchi and Decreased Breath Sounds
Cardiac: S1/S2, Regular Rhythm and Peripheral Edema; No Murmur, Rub or Gallop
GI: Soft, Non Tender, Non Distended and Normal Bowel Sounds
Musculoskeletal: No Clubbing and No Cyanosis
Skin: IV/Catheter Site
Neuro: Awake
Laboratory Results
-
02/11/25 14:43
02/11/25 14:43
Laboratory Results
Total Bilirubin 0.7 mg/dl (0.2-1.3) 02/11/25 14:43
AST 18 U/L (17-59) 02/11/25 14:43
ALT 11 U/L (0-50) 02/11/25 14:43
Alkaline Phosphatase 52 U/L (38-126) 02/11/25 14:43
Data Reviewed
-
Diagnostic Radiology: Report Reviewed by me (CXR: 1. Mild interstitial cardiogenic pulmonary edema. 2. Mild cardiomegaly. 3. Small left pleural effusion. 4. Mildly to moderately decreased lung volumes.)
Medical Tests (Nuc Med, Echo, EKG etc): Report Reviewed by me (EKG: NORMAL SINUS RHYTHM RIGHT BUNDLE BRANCH BLOCK)
Lab Data: Labs Reviewed by me (BUN 28, Creat 1.7, Est CrCl 46, eGFR 42.04)
Impression/Plan
-
IMPRESSION/PLAN:
#change in mental status 2/2 infectious process/TME vs. CVA/TIA vs. COPD exacerbation
#toxic metabolic encephalopathy
Influenza: negative
Covid: negative (was positive at senior living per EMS)
EKG: NORMAL SINUS RHYTHM
RIGHT BUNDLE BRANCH BLOCK
CXR: 1. Mild interstitial cardiogenic pulmonary edema.
2. Mild cardiomegaly.
3. Small left pleural effusion.
4. Mildly to moderately decreased lung volumes.
- Admit to telemetry
- DuoNeb QID and PRN
- supportive care
#COPD exacerbation
- PRN O2, wean as tolerated
- continue albuterol
- dexamethasone 4mg q12
#acute kidney injury
#CKD IIIb
BUN 28, Creat 1.7, Est CrCl 46, eGFR 42.04
- trend BMP
#hypertension
- continue amlodipine
#hypercholesterolemia
- continue ezetimibe and pravastatin
#dementia
- continue escitalopram
#seizures
- continue divalproex and levetiracetam
#DVT
- continue apixaban
#CVA
Code status: full code
DVT prophylaxis: apixaban
--- NOTE | 2025-02-11 19:43 | W.PN.UPDATE ---
Update Note
Progress Note Update
Per ED RN, patient's son called to change code status. Phone call to patient's son, Artuhr Peace, to confirm code status. Patient's son, Arthur, spoke with his sister and they both agree code status changed to DNR. No CPR and no intubation.
Code status updated to DNR.
Also requested that no feeding tube be placed if needed.
[2025-02-11] MEDS: KEPPRA 750 MG PO (20:13)
[2025-02-11] MEDS: COLACE 100 MG PO (20:13)
[2025-02-11] MEDS: ELIQUIS 5 MG PO (20:13)
[2025-02-11] MEDS: DEPAKOTE ER (24 HR RELEASE) 500 MG PO (20:14)
[2025-02-11] MEDS: TYLENOL 650 MG PO (20:39)
[2025-02-11] MEDS: LASIX 40 MG IV (23:55)
[2025-02-11] MEDS: PRAVACHOL 40 MG PO (23:59)
[2025-02-12 03:41] VITALS: BP 149/63
[2025-02-12] MEDS: DECADRON 4 MG IV (04:31)
--- NOTE | 2025-02-12 04:43 | W.PN.UPDATE ---
Update Note
Progress Note Update
16 beat NSVT this am.
check mag
[2025-02-12 05:42] LABS: Urine Character Clear (Clear)
[2025-02-12 05:58] LABS: Urine Squamous Cell 0-2 /LPF (Few)
[2025-02-12 06:00] VITALS: BMI 29.6
[2025-02-12 06:05] LABS: Magnesium 2.0 mg/dl (1.6-2.3)
[2025-02-12 06:07] LABS: Hematocrit 36.7 % (39.0-52.0); Hemoglobin 12.3 g/dL (13.0-18.0); Mean Corp Hgb Conc. 33.5 g/dL (33.0-37.0); Mean Corpuscular Volume 89.1 fL (80.0-94.0); Platelet Count 58 10^3/uL (130-400); Red Cell Dist. Width 13.3 % (11.5-14.5)
[2025-02-12 06:13] LABS: Blood Urea Nitrogen 36 mg/dl (9-20); Calcium 8.6 mg/dl (8.4-10.2); Carbon Dioxide 25 mmol/L (22-30); Chloride 113 mmol/L (98-107); Estimated Creatinine Clearance 33 ml/min; Glucose 169 mg/dl (70-99); Potassium 4.7 mmol/L (3.5-5.1); Sodium 143 mmol/L (135-145); eGFR 32.62
[2025-02-12 06:54] LABS: Hepatitis C Antibody Negative (Negative)
[2025-02-12 07:45] VITALS: BP 156/56
[2025-02-12] MEDS: DUONEB 3 ML INH (07:45)
[2025-02-12] MEDS: COLACE 100 MG PO ×2 (09:18→20:26)
[2025-02-12] MEDS: NORVASC 10 MG PO (09:18)
[2025-02-12] MEDS: DEPAKOTE ER (24 HR RELEASE) 500 MG PO ×2 (09:18→20:26)
[2025-02-12] MEDS: LEXAPRO 20 MG PO (09:18)
[2025-02-12] MEDS: ZETIA 10 MG PO (09:18)
[2025-02-12] MEDS: ELIQUIS 5 MG PO (09:19)
[2025-02-12] MEDS: KEPPRA 750 MG PO ×2 (09:19→20:26)
--- NOTE | 2025-02-12 09:32 | W.PN.HOSP.TC ---
Addendum entered and electronically signed by Rios Koehler MD 02/12/25 11:24:
Repeat COVID test positive.
Start Paxlovid.
Decrease Eliquis dose by 50% to 2.5 mg twice daily while on Paxlovid
Continue Decadron 6 mg daily
Addendum entered and electronically signed by Rios Koehler MD 02/12/25 10:11:
PAD
According to patient's son scheduled for lower extremity procedure this week
Vascular surgeon Dr. Salmon [phone]
Medical records requested
Original Note:
Today's Communication/Plan
-
Echo.
Diurese.
Attempt to wean off O2.
Aspiration precautions with speech and swallow evaluation
CT head
Repeat COVID test
Decrease steroids to Decadron 6 mg daily
Assessment / Plan
Assessment / Plan
Impression
74 years old male with history of CVA with residual left-sided weakness, dementia, seizures, COPD, recent diagnosis of lower extremity DVT initiated on Eliquis 11/30/2024 presented from nursing facility with reported lethargy. Patient was recently
(unknown date diagnosed with COVID-19)
Altered mental status/TME likely multifactorial
Acute hypoxic respiratory insufficiency, requires 2 L of oxygen supplementation
Acute CHF preserved EF exacerbation with pulmonary edema
BRIAN on CKD with concern for cardiorenal state
Conditions prior to admission
Status post CVA with residual left-sided weakness
Seizure disorder.
Hypertension.
CKD stage IIIb
Recent diagnosis of lower extremity DVT on Eliquis.
Chronic thrombocytopenia (ambulatory ascitic thrombocytopenia).
Plan:
Altered mental status/TME likely multifactorial due to recent COVID infection as well as hypoxia related to acute pulmonary edema and CHF exacerbation.
Patient is currently alert awake and latent reasonably responding to all questions.
With history of CVA he has a chronic left facial droop and left upper and lower extremity weakness.
Will check CT scan of the head without contrast with concern for acute abnormalities (patient recently on anticoagulation with Eliquis with moderate chronic thrombocytopenia)
Aspiration precautions
Speech and swallow evaluation
Acute hypoxic respiratory insufficiency
Acute CHF exacerbation with pulmonary edema.
Chest x-ray with cardiomegaly and bilateral interstitial infiltrates.
Elevated pro CHF BNP over 20,000
Echocardiogram 02/15 with LVEF 55-60%. Mild aortic stenosis with, mild TR
Update echo
Diuresis initiated on Lasix 40 mg IV daily. Follow daily weight and renal function
COVID infection.
Follow temperature curve
Chest x-ray with diffuse bilateral infiltrate suspect secondary to cardiogenic pulmonary edema
Repeat COVID antigen
Transition to lower dose of steroids: Decadron 6 mg daily
COPD without evidence of exacerbation.
Minimal nonproductive cough.
No bronchospasm on exam.
Chest x-ray with no focal infiltrate.
Continue nebulizers.
Steroids as above
Essential hypertension.
Continue amlodipine.
Monitor BP trend with diuresis.
BRIAN, suspect cardiorenal state
CKD stage IIIb with baseline creatinine 1.5�2.
Bladder scan to rule out retention
Consider renal sonogram
Monitor renal function with diuresis.
Presumed hyperkalemia (on sodium zirconium PT). Hold while on Lasix. Follow BMP
Status post CVA with left hemiparesis as residual
Aspiration risk pending consult.
Seizure disorder.
Continue Keppra and Depakote. Check Depakote level.
Continue preadmission neurologic regimen including Lexapro
Continue Pravachol and Zetia
Chronic thrombocytopenia
Listed diagnosis of a megakaryocytic thrombocytopenia
Moderate thrombocytopenia with platelet count over 50. Monitor closely while on Eliquis.
CODE STATUS DNR.
DVT prophylaxis Eliquis
Anticipated Discharge: > 48 hours
Subjective/Interval History
-
Date of Service: February 12, 2025
Objective Data
-
Labs:
Laboratory Results
02/12/25
05:35
WBC 3.8 L
Hgb 12.3 L
Hct 36.7 L
Plt Count 58 L
Sodium 143
Potassium 4.7
Chloride 113 H
Carbon Dioxide 25
BUN 36 H
Creatinine 2.1 H
Glucose 169 H
Calcium 8.6
Vital Signs:
Vital Signs
Temp Pulse Resp BP Pulse Ox
97.7 F 64 16 156/56 98
02/12/25 07:45 02/12/25 07:49 02/12/25 07:49 02/12/25 07:45 02/12/25 07:49
I&O
02/11/25 02/12/25 02/13/25
06:59 06:59 06:59
Output Total 1100 / 1100
Balance -1100 / -1100
Physical Exam
-
General: Well Developed and No Apparent Distress
HEENT: Normocephalic, Atraumatic and Moist Mucous Membranes
Respiratory: Rhonchi and Crackles; Negative Wheezes
Cardiac: Regular Rhythm and S1/S2; Negative Murmur, Rub or Gallop
GI: Soft, Nontender, Nondistended and Normal Bowel Sounds; Negative Organomegaly
Rectal: Deferred by Provider
Musculoskeletal: No Clubbing, No Cyanosis and No Edema
Skin: Negative Rash
Neuro: Awake, Alert, Oriented, AO x 3 and Other (Left facial droop, left upper extremity/left lower extremity weakness)
[2025-02-12] MEDS: LASIX 40 MG IV (09:59)
[2025-02-12 11:03] LABS: Depakane 15.7 ug/ml (50.0-120.0)
[2025-02-12 11:06] LABS: COVID-19 Antigen Positive (Negative)
[2025-02-12 11:25] VITALS: BP 157/59
[2025-02-12] MEDS: DUONEB INH (11:26)
[2025-02-12] MEDS: SPIRIVA RESPIMAT 2.5 MCG INH (11:36)
[2025-02-12] MEDS: PAXLOVID 150-100 MG DOSE PACK 1 DOSE PO ×2 (12:32→20:29)
--- NOTE | 2025-02-12 14:35 | CM ---
Reviewed the chart notes and spoke with the patient at the bedside. The patient resides at [facility]. Patient is min assist with ambulating with rolling walker. Patient requires min assist with upper body ADLs and mod assist with lower
body assist. CM continues to be available to patient/family and is monitoring medical plan for needs at discharge.
Plan: Discharge back to [facility] when medically stable. No precert required. Advanced directive provided.
[2025-02-12 15:53] VITALS: BP 162/56
[2025-02-12 19:31] VITALS: BP 170/57
[2025-02-12] MEDS: ELIQUIS 2.5 MG PO (20:27)
[2025-02-12 23:00] VITALS: BP 152/61
[2025-02-12] MEDS: PRAVACHOL 40 MG PO (23:19)
--- NOTE | 2025-02-13 02:17 | DOWNTIME ---
There was a [employer] Client Structural Manager Downtime on 02/13/2025 from 0100 to 02/13/2025 at 0215. Downtime documentation of patient's care, including medication administrations, has been reconciled in the electronic record per guidelines. Refer to the
patient's paper chart under the miscellaneous tab to see printed paper medication records and downtime forms.
[2025-02-13 03:09] VITALS: BP 109/46
[2025-02-13 07:00] VITALS: BP 125/50
[2025-02-13] MEDS: SPIRIVA RESPIMAT 2.5 MCG 2 PUFF INH (07:29)
[2025-02-13 08:31] LABS: Hematocrit 34.4 % (39.0-52.0); Hemoglobin 11.2 g/dL (13.0-18.0); Mean Corp Hgb Conc. 32.6 g/dL (33.0-37.0); Mean Corpuscular Volume 90.3 fL (80.0-94.0); Nucleated Red Blood Cells % 0 % (-); Platelet Count 58 10^3/uL (130-400); Red Cell Dist. Width 13.3 % (11.5-14.5)
[2025-02-13] MEDS: PAXLOVID 150-100 MG DOSE PACK 1 DOSE PO ×2 (09:25→21:15)
[2025-02-13] MEDS: DEPAKOTE ER (24 HR RELEASE) 500 MG PO ×2 (09:26→21:14)
[2025-02-13] MEDS: NORVASC 10 MG PO (09:26)
[2025-02-13] MEDS: ELIQUIS 2.5 MG PO ×2 (09:26→21:13)
[2025-02-13] MEDS: LEXAPRO 20 MG PO (09:26)
[2025-02-13] MEDS: KEPPRA 750 MG PO ×2 (09:26→21:14)
[2025-02-13] MEDS: ZETIA 10 MG PO (09:26)
[2025-02-13] MEDS: COLACE 100 MG PO ×2 (09:26→21:15)
[2025-02-13] MEDS: LASIX 40 MG IV (09:26)
[2025-02-13] MEDS: DECADRON 6 MG IV (09:27)
[2025-02-13 09:33] LABS: Blood Urea Nitrogen 44 mg/dl (9-20); Calcium 8.1 mg/dl (8.4-10.2); Carbon Dioxide 24 mmol/L (22-30); Chloride 111 mmol/L (98-107); Estimated Creatinine Clearance 37 ml/min; Glucose 108 mg/dl (70-99); Potassium 4.5 mmol/L (3.5-5.1); Sodium 139 mmol/L (135-145); eGFR 36.79
[2025-02-13] MEDS: LOKELMA 10 GRAM PO (11:06)
[2025-02-13 11:36] VITALS: BP 150/65
--- NOTE | 2025-02-13 13:56 | W.PN.HOSP.TC ---
Today's Communication/Plan
-
Attempt to wean off oxygen
IV diuresis
Decadron for COVID
Paxlovid
Assessment / Plan
Assessment / Plan
Impression
74 years old male with history of CVA with residual left-sided weakness, dementia, seizures, COPD, recent diagnosis of lower extremity DVT initiated on Eliquis 11/30/2024 presented from nursing facility with reported lethargy. Patient was recently
(unknown date diagnosed with COVID-19)
Altered mental status/TME likely multifactorial
Acute hypoxic respiratory insufficiency, requires 2 L of oxygen supplementation
Acute CHF preserved EF exacerbation with pulmonary edema
BRIAN on CKD with concern for cardiorenal state
Conditions prior to admission
Status post CVA with residual left-sided weakness
Seizure disorder.
Hypertension.
CKD stage IIIb
Recent diagnosis of lower extremity DVT on Eliquis.
Chronic thrombocytopenia (ambulatory ascitic thrombocytopenia).
Plan:
Altered mental status/TME likely multifactorial due to recent COVID infection as well as hypoxia related to acute pulmonary edema and CHF exacerbation.
Patient is currently alert awake and latent reasonably responding to all questions.
With history of CVA he has a chronic left facial droop and left upper and lower extremity weakness.
Will check CT scan of the head without contrast with concern for acute abnormalities (patient recently on anticoagulation with Eliquis with moderate chronic thrombocytopenia)
Aspiration precautions
Speech and swallow evaluation
Acute hypoxic respiratory insufficiency
Acute CHF exacerbation with pulmonary edema.
Chest x-ray with cardiomegaly and bilateral interstitial infiltrates.
Elevated pro CHF BNP over 20,000
Echocardiogram 02/15 with LVEF 55-60%. Mild aortic stenosis with, mild TR
Updated echo::1. Left ventricle is normal in size. Mildly reduced left ventricular left ventricular systolic function. Mild concentric left ventricular hypertrophy. Anterior, anteroseptal and inferior hypokinesis. Left ventricular ejection fraction
is 45-50% by visual estimate.
2. Mildly dilated left atrium left atrium.
3. Trileaflet, thickened aortic leaflets with restricted leaflet motion. Mild aortic stenosis. Peak/mean gradients across the aortic valve are 25/15 mmHg. Mild aortic regurgitation.
4. Thickened mitral leaflets with adequate leaflet excursion. Mitral annular calcification. Mild mitral regurgitation.
5. When compared to the most recent echocardiogram from 01/25/2024, the LVEF is now estimated low normal to mildly reduced with an estimated ejection fraction of 45-50% as compared to 55-60% as noted on the prior study. The mean aortic valve
gradients have remained reasonably stable.
Diuresis initiated on Lasix 40 mg IV daily. Follow daily weight and renal function
Cardiology evaluation
COVID infection.
Follow temperature curve
Chest x-ray with diffuse bilateral infiltrate suspect secondary to cardiogenic pulmonary edema
Paxlovid initiated on 02/12
Transition to lower dose of steroids: Decadron 6 mg daily
COPD without evidence of exacerbation.
Minimal nonproductive cough.
No bronchospasm on exam.
Chest x-ray with no focal infiltrate.
Continue nebulizers.
Steroids as above
Essential hypertension.
Continue amlodipine.
Monitor BP trend with diuresis.
BRIAN, suspect cardiorenal state
CKD stage IIIb with baseline creatinine 1.5�2.
Bladder scan to rule out retention
Consider renal sonogram
Monitor renal function with diuresis.
Presumed hyperkalemia (on sodium zirconium PT). Hold while on Lasix. Follow BMP
Status post CVA with left hemiparesis as residual
Aspiration risk pending consult.
Seizure disorder.
Continue Keppra and Depakote. Depakote level 15.7
Continue preadmission neurologic regimen including Lexapro
Continue Pravachol and Zetia
Lower extremity DVT.
On Eliquis.
Dose of Eliquis reduced to 2.5 mg twice daily (by 50%) while on Paxlovid.
PAD.
Recent arterial ultrasound indicative of bilateral disease with right AMRIK 0.25 left AMRIK 0.29
No evidence for acute lower extremity ischemia
Outpatient follow-up with vascular surgery
Chronic thrombocytopenia
Listed diagnosis of a megakaryocytic thrombocytopenia
Moderate thrombocytopenia with platelet count over 50. Monitor closely while on Eliquis.
CODE STATUS DNR.
DVT prophylaxis Eliquis
Anticipated Discharge: 24 - 48 hours
Subjective/Interval History
-
Date of Service: February 13, 2025
Objective Data
-
Labs:
Laboratory Results
02/13/25
07:33
WBC 4.8
Hgb 11.2 L
Hct 34.4 L
Plt Count 58 L
Sodium 139
Potassium 4.5
Chloride 111 H
Carbon Dioxide 24
BUN 44 H
Creatinine 1.9 H
Glucose 108 H
Calcium 8.1 L
Vital Signs:
Vital Signs
Temp Pulse Resp BP Pulse Ox
98.3 F 60 16 150/65 95
02/13/25 11:36 02/13/25 11:43 02/13/25 11:43 02/13/25 11:36 02/13/25 11:43
I&O
02/12/25 02/13/25 02/14/25
06:59 06:59 06:59
Intake Total 1080 / 1080 240 / 240
Output Total 1100 / 1100 975 / 975 350 / 350
Balance -1100 / -1100 105 / 105 -110 / -110
Physical Exam
-
General: Well Developed and No Apparent Distress
HEENT: Normocephalic, Atraumatic and Moist Mucous Membranes
Respiratory: Rhonchi and Crackles; Negative Wheezes
Cardiac: Regular Rhythm and S1/S2; Negative Murmur, Rub or Gallop
GI: Soft, Nontender, Nondistended and Normal Bowel Sounds; Negative Organomegaly
Rectal: Deferred by Provider
Musculoskeletal: No Clubbing, No Cyanosis and No Edema
Skin: Negative Rash
Neuro: Awake, Alert, Oriented, AO x 3 and Other (Left facial droop, left upper extremity/left lower extremity weakness)
--- NOTE | 2025-02-13 14:09 | CON.CAR ---
Addendum entered and electronically signed by Dieudonne Alicia MD 02/13/25 15:19:
I saw and examined the patient.
The ELECTRIC MULE DRIVER or PA's note was reviewed and I agree with the note.
Comment: General: Well developed, well nourished in NAD.
Neck: Supple, no JVD, HJR, carotids +2 B/L, no bruits bilaterally.
Heart: Non displaced PMI, RRR, no murmurs, No S3, S4, no rubs.
Lungs: Scattered rhonchi
Abdomen: Normal bowel sounds, soft, non-tender, non-distended.
Extremities: No clubbing, cyanosis or edema bilaterally.
Neuro: Grossly nonfocal, awake, alert and oriented x3.
Arthur has a history of CKD 3B, left lower extremity DVT on Eliquis since November 2024, hypertension, CVA, seizure disorder, dementia, possible traumatic brain injury. He was admitted with change in mental status and is COVID-positive. Cardiology
is consulted for echocardiogram with mildly reduced ejection fraction and acute diastolic CHF.
Will treat CHF with IV Lasix and follow renal function closely. Will add low-dose Toprol with mildly reduced ejection fraction. Conservative treatment given comorbid illnesses.
Original Note:
Consultation
Consultation Request
Date/Time Consultation Requested: 02/13/2025
Date/Time Consultation Performed: 02/13/2025
Requesting Provider: Dr. Koehler
Performing Provider: Dr. Alicia
Reason for Consultation: Acute HFmrEF
Medical History
-
History of Present Illness:
Patient came to the hospital on Tuesday with a change in mental status in the setting of being COVID-positive and was admitted with possible TME, cardiology is now consulted for possible acute HF. Patient is a long-term resident at [facility],
he has lived there for at least 2 years. Patient has a previous CVA with residual weakness and is a minimal to a moderate assist. Last admission was an ER visit on 11/30/2024 where he was found to have an LLE DVT and was started on Eliquis. There
is no previous cardiology evaluation inpatient or outpatient on my review of [facility] in [facility] systems respectively. Patient is a poor historian, but from what I can gather looking through all available records the patient has a previous CVA coupled
with seizure disorder, possible dementia and possible TBI. His nurse at the SNF noticed he was more confused and a day or 2 prior he had been diagnosed with COVID, so he was referred to the ER for further evaluation. In the ER patient was confused
and combative, but overall improved now. He remains hypoxic and was started on Decadron and Paxlovid. CXR suggested pulmonary edema and proBNP was elevated at 20,500. Patient is now being diuresed with Lasix 40 mg daily. Echo checked yesterday
showed EF is now reduced to 45 to 50%, but had been normal a year ago. Patient denies any symptoms
PMH:
CKD 3B
h/o LLE DVT and started on Eliquis 11/30/2024
HTN
Hyperlipidemia
h/o CVA
Seizure disorder
Possible dementia
Possible TBI
Past Medical History
Past Medical History: Other (In HPI)
Social History
Tobacco: Former Smoker
Alcohol: None
Drug: None
[facility]
Family History
Family History: Unable to Obtain (no pertinent history he is aware of)
Allergies / Home Medications
Allergy/AdvReac Type Severity Reaction Status Date / Time
No Known Allergies Allergy Unverified 11/30/24 10:36
�Medication �Instructions �Recorded �Confirmed �Type
acetaminophen 325 mg tablet 650 mg PO Q4HPRN PRN fever/pain 01/25/24 02/11/25 History
(Tylenol)
albuterol sulfate 2.5 mg/3 mL 2.5 mg inhalation Q6H PRN wheezing 01/25/24 02/11/25 History
(0.083 %) solution for nebulization
albuterol sulfate 90 mcg/actuation 2 puff inhalation Q6H PRN wheezing 01/25/24 02/11/25 History
aerosol inhaler
amlodipine 10 mg tablet 10 mg PO DAILY Blood Pressure 01/25/24 02/11/25 History
docusate sodium 100 mg capsule 100 mg PO BID stool softener 01/25/24 02/11/25 History
(Colace)
escitalopram oxalate 20 mg tablet 20 mg PO DAILY Mental 01/25/24 02/11/25 History
(Lexapro) Health/Anxiety
ezetimibe 10 mg tablet 10 mg PO DAILY High Cholesterol 01/25/24 02/11/25 History
levetiracetam 750 mg tablet 750 mg PO BID Seizures 01/25/24 02/11/25 History
magnesium hydroxide 400 mg/5 mL 30 ml PO PRN PRN constipation, no 01/25/24 02/11/25 History
oral suspension (Milk of Magnesia) BM X 3 D
pravastatin 40 mg tablet 40 mg PO HS High Cholesterol 01/25/24 02/11/25 History
sodium phosphates 19 gram-7 118 ml CA DAILYPRN PRN constipation 01/25/24 02/11/25 History
gram/118 mL enema (Fleet Enema)
apixaban 5 mg tablet 5 mg PO BID Blood Clot 02/11/25 02/11/25 History
Prevention/Tx
bisacodyl 10 mg rectal suppository 10 mg CA DAILY PRN constipation 02/11/25 02/11/25 History
(Dulcolax (bisacodyl))
cholecalciferol (vitamin D3) 50 50 mcg PO DAILY Supplement 02/11/25 02/11/25 History
mcg (2,000 unit) tablet (Vitamin
D3)
divalproex 500 mg tablet,extended 500 mg PO BID Neurological 02/11/25 02/11/25 History
release 24 hr (Depakote ER) Condition
sodium zirconium cyclosilicate 10 10 g PO MOWEFR hyperkalemia 02/11/25 02/11/25 History
gram oral powder packet (Lokelma)
Review of Systems
-
History Source: Patient
All other systems: Negative unless noted
Physical Exam
Vital Signs
Temp Pulse Resp BP Pulse Ox
98.3 F 60 16 150/65 95
02/13/25 11:36 02/13/25 11:43 02/13/25 11:43 02/13/25 11:36 02/13/25 11:43
GEN: NAD, AAO to person, place and situation
HEENT: EOMI
LUNGS: 1 L NC. B/L rales without wheeze.
CV: SR on telemetry. Reg, S1/S2, no murmur
ABD: ND
EXT: No edema B/L LE
NEURO: Gross non-focal
SKIN: No rash
Lab Results
02/13/25 07:33
02/13/25 07:33
Jxa-B-Dzfjlseqqay Pept [id number] pg/ml 02/11/25 14:43
Impression / Plan
-
PCP: Dr. Sky Tinoco
Cardiology: None prior to admission
Impression:
Admitted with change in mental status and COVID-positive 02/11/2025
COVID-positive at long-term SNF prior to admission 02/11/2025
Change in mental status, possible TME
AE COPD
Acute HFmrEF
EF 45% by echo 02/12/2025
BRIAN on CKD 3B
h/o LLE DVT and started on Eliquis 11/30/2024
HTN
Hyperlipidemia
h/o CVA
Seizure disorder
Possible dementia
Possible TBI
Echo 01/25/2024: EF 55 to 60%, mild with peak/mean 28/17 mmHg, mild TR with PAP 23 mmHg, trivial pericardial effusion, mildly dilated aortic root with sinus of Valsalva, sinotubular junction and ascending aorta are all measuring 3.8 cm
Echo 02/12/2025: EF 45 to 50%, mild peak/mean 25/15 mmHg, mild aortic regurgitation, mild MR
Plan:
-Patient came to the hospital on Tuesday with a change in mental status in the setting of being COVID-positive and was admitted with possible TME, cardiology is now consulted for possible acute HF. Patient is a long-term resident at [facility],
he has lived there for at least 2 years. Patient has a previous CVA with residual weakness and is a minimal to a moderate assist. Last admission was an ER visit on 11/30/2024 where he was found to have an LLE DVT and was started on Eliquis. There
is no previous cardiology evaluation inpatient or outpatient on my review of [facility] in [employer] systems respectively. Patient is a poor historian, but from what I can gather looking through all available records the patient has a previous CVA coupled
with seizure disorder, possible dementia and possible TBI. His nurse at the SNF noticed he was more confused and a day or 2 prior he had been diagnosed with COVID, so he was referred to the ER for further evaluation. In the ER patient was confused
and combative, but overall improved now. He remains hypoxic and was started on Decadron and Paxlovid. CXR suggested pulmonary edema and proBNP was elevated at 20,500. Patient is now being diuresed with Lasix 40 mg daily. Echo checked yesterday
showed EF is now reduced to 45 to 50%, but had been normal a year ago. Patient denies any symptoms
-No ECG performed this admission.
-Telemetry reviewed by me is SR
-proBNP was 20,500 and evidence of acute HF on CXR. HF is a new diagnosis for patient.
-Patient is being weighed with bed scale and no obvious decrease in weight despite Lasix 40 mg IV daily diuresis. Oxygenation seems to be improving, but patient is also completing treatment for COVID with Paxlovid and Decadron. Cre was 1.7 on
admission then increased to 2.1 and now improved to 1.9 with attempts at IV diuresis. Continue with Lasix 40 mg IV daily for now. Patient was not taking a diuretic prior to admission
-EF was 55 to 60% by echo 01/25/2024 and is now reduced at 45 to 50% by echo this admission. No real increase in valvular heart disease, he continues with mild .
-Would not start spironolactone due to history of hyperkalemia
-Could consider adding SGLT2 inhibitor
-Will try adding Toprol-XL 12.5 mg daily and follow HR response on telemetry, orders placed by me.
-EF reduced at 45% in the setting of COVID and AECOPD. Patient is not a candidate for invasive ischemic evaluation given frailty with previous CVA and he is a long-term SNF resident plus a DNR.
-Previous CVA from unknown mechanism, no known history of atrial arrhythmia and Eliquis has been prescribed for DVT that was diagnosed on 11/30/2024.
[2025-02-13 15:00] VITALS: BP 128/52
[2025-02-13 19:10] VITALS: BP 151/60
[2025-02-13] MEDS: MUCINEX 600 MG PO (21:13)
[2025-02-13] MEDS: PRAVACHOL 40 MG PO (21:15)
[2025-02-13] MEDS: TYLENOL 650 MG PO (21:40)
[2025-02-13 22:51] VITALS: BP 160/60
[2025-02-14 03:13] VITALS: BP 144/58
[2025-02-14 06:00] VITALS: BMI 30.3
[2025-02-14 07:48] LABS: Blood Urea Nitrogen 55 mg/dl (9-20); Calcium 8.2 mg/dl (8.4-10.2); Carbon Dioxide 25 mmol/L (22-30); Chloride 107 mmol/L (98-107); Estimated Creatinine Clearance 39 ml/min; Glucose 144 mg/dl (70-99); Potassium 4.8 mmol/L (3.5-5.1); Sodium 135 mmol/L (135-145); eGFR 34.59
[2025-02-14 07:50] VITALS: BP 154/64
[2025-02-14] MEDS: SPIRIVA RESPIMAT 2.5 MCG 2 PUFF INH (08:01)
[2025-02-14] MEDS: MUCINEX 600 MG PO ×2 (09:21→21:17)
[2025-02-14] MEDS: KEPPRA 750 MG PO ×2 (09:21→21:17)
[2025-02-14] MEDS: PAXLOVID 150-100 MG DOSE PACK 1 DOSE PO ×2 (09:21→21:17)
[2025-02-14] MEDS: ZETIA 10 MG PO (09:21)
[2025-02-14] MEDS: NORVASC 10 MG PO (09:21)
[2025-02-14] MEDS: ELIQUIS 2.5 MG PO ×2 (09:21→21:17)
[2025-02-14] MEDS: LEXAPRO 20 MG PO (09:21)
[2025-02-14] MEDS: DECADRON 6 MG IV (09:22)
[2025-02-14] MEDS: TOPROL XL 12.5 MG PO (09:22)
[2025-02-14] MEDS: LASIX 40 MG IV (09:22)
[2025-02-14] MEDS: DEPAKOTE ER (24 HR RELEASE) 500 MG PO ×2 (09:22→21:17)
[2025-02-14] MEDS: COLACE 100 MG PO ×2 (09:23→21:18)
[2025-02-14 11:25] VITALS: BP 144/60
--- NOTE | 2025-02-14 12:05 | W.PN.CARDCBS ---
Today's Communication / Plan
-
Cont IV diuresis, not clear that wt is accurate. Patient was not taking a diuretic prior to admission.
Cr slightly higher last 24 hrs to 2.
Cont to monitor Is and Os and daily wts.
proBNP was greater than 20,000 on admission with evidence of heart failure on x-ray.
He has mild aortic stenosis would not be a cause for his heart failure
Toprol has been added for mild cardiomyopathy this admission.
Cont conservative management of mild cardiomyopathy given comorbidities and dementia.
Continue Eliquis prescribed for DVT.
Remains sinus rhythm.
Impression / Plan
-
.
PCP: Dr. Sky Tinoco
Cardiology: None prior to admission
Impression:
Admitted with change in mental status and COVID-positive 02/11/2025
COVID-positive at long-term SNF prior to admission 02/11/2025
Change in mental status, possible TME
AE COPD
Acute HFmrEF
EF 45% by echo 02/12/2025
BRIAN on CKD 3B
h/o LLE DVT and started on Eliquis 11/30/2024
HTN
Hyperlipidemia
h/o CVA
Seizure disorder
Possible dementia
Possible TBI
Echo 01/25/2024: EF 55 to 60%, mild with peak/mean 28/17 mmHg, mild TR with PAP 23 mmHg, trivial pericardial effusion, mildly dilated aortic root with sinus of Valsalva, sinotubular junction and ascending aorta are all measuring 3.8 cm
Echo 02/12/2025: EF 45 to 50%, mild peak/mean 25/15 mmHg, mild aortic regurgitation, mild MR
Plan:
Cont IV diuresis, not clear that wt is accurate. Patient was not taking a diuretic prior to admission.
Cr slightly higher last 24 hrs to 2.
Cont to monitor Is and Os and daily wts.
proBNP was greater than 20,000 on admission with evidence of heart failure on x-ray.
He has mild aortic stenosis would not be a cause for his heart failure
Toprol has been added for mild cardiomyopathy this admission.
Cont conservative management of mild cardiomyopathy given comorbidities and dementia.
Continue treatment for COVID as per primary service.
Continue Eliquis prescribed for DVT.
Remains sinus rhythm.
Patient is a long-term facility resident and DNR.
Discussed with nursing.
HPI: -Patient came to the hospital on Tuesday with a change in mental status in the setting of being COVID-positive and was admitted with possible TME, cardiology is now consulted for possible acute HF. Patient is a long-term resident at [facility], he has lived there for at least 2 years. Patient has a previous CVA with residual weakness and is a minimal to a moderate assist. Last admission was an ER visit on 11/30/2024 where he was found to have an LLE DVT and was started on Eliquis.
There is no previous cardiology evaluation inpatient or outpatient on my review of [facility] systems respectively. Patient is a poor historian, looking through all available records the patient has a previous CVA coupled with seizure
disorder, possible dementia and possible TBI. His nurse at the SNF noticed he was more confused and a day or 2 prior he had been diagnosed with COVID, so he was referred to the ER for further evaluation. In the ER patient was confused and
combative, but overall improved now. He remains hypoxic and was started on Decadron and Paxlovid. CXR suggested pulmonary edema and proBNP was elevated at 20,500. Patient is now being diuresed with Lasix 40 mg daily. Echo checked yesterday
showed EF is now reduced to 45 to 50%, but had been normal a year ago.
Progress Note - Glaze Supervisor
Subjective
Date of Service: February 14, 2025
Pt seen and examined. No complaints. No chest pain or shortness of breath.
Objective
Labs:
02/13/25 07:33
02/14/25 07:02
Labs
Hgb 11.2 g/dL (13.0-18.0) L 02/13/25 07:33
Hct 34.4 % (39.0-52.0) L 02/13/25 07:33
Plt Count 58 10^3/uL (130-400) L 02/13/25 07:33
Sodium 135 mmol/L (135-145) 02/14/25 07:02
Potassium 4.8 mmol/L (3.5-5.1) 02/14/25 07:02
BUN 55 mg/dl (9-20) H 02/14/25 07:02
Creatinine 2.0 mg/dL (0.7-1.3) H 02/14/25 07:02
Glucose 144 mg/dl (70-99) H 02/14/25 07:02
Vital Signs and I&O:
Vital Signs
Temp Pulse Resp BP Pulse Ox
97.8 F 81 19 154/64 96
02/14/25 07:50 02/14/25 08:03 02/14/25 08:03 02/14/25 09:22 02/14/25 08:03
Vital Signs
Temp Pulse Resp BP Pulse Ox
97.8 F 81 19 154/64 96
02/14/25 07:50 02/14/25 08:03 02/14/25 08:03 02/14/25 09:22 02/14/25 08:03
Intake & Output
02/12/25 02/13/25 02/14/25 02/15/25
06:59 06:59 06:59 06:59
Intake Total 1080 / 1080 1440 / 1440
Output Total 1100 / 1100 975 / 975 1050 / 1050
Balance -1100 / -1100 105 / 105 390 / 390
Physical Exam
Physical Exam
General: No acute distress, awake and alert
Neck: Negative JVD
Heart: Regular, Negative S3 positive S1/S2, Negative S4, No murmur
Lungs: CTA b/l, negative wheezes/rales/rhonchi
Abd: Positive BS, NT/ND, neg rebound/rigidity/guarding
Ext: Negative cyanosis/clubbing/edema
Neuro: nonfocal
--- NOTE | 2025-02-14 14:02 | CM ---
patient chart reviewed.
[facility]ison
referral entered in [facility]
PLAN: return to [facility] when stable
Report #; [phone]
Fax #: [phone]
--- NOTE | 2025-02-14 14:40 | W.PN.HOSP.TC ---
Today's Communication/Plan
-
Continue IV diuresis
Attempt to wean off O2
May need to intensify diuresis if plateau weights and remains with high oxygen requirements
Continue Decadron
Complete Paxlovid course
Assessment / Plan
Assessment / Plan
Impression
74 years old male with history of CVA with residual left-sided weakness, dementia, seizures, COPD, recent diagnosis of lower extremity DVT initiated on Eliquis 11/30/2024 presented from nursing facility with reported lethargy. Patient was recently
(unknown date diagnosed with COVID-19)
Altered mental status/TME likely multifactorial
Acute hypoxic respiratory insufficiency, requires 2 L of oxygen supplementation
Acute CHF preserved EF exacerbation with pulmonary edema
BRIAN on CKD with concern for cardiorenal state
Conditions prior to admission
Status post CVA with residual left-sided weakness
Seizure disorder.
Hypertension.
CKD stage IIIb
Recent diagnosis of lower extremity DVT on Eliquis.
Chronic thrombocytopenia (ambulatory ascitic thrombocytopenia).
Plan:
Altered mental status/TME likely multifactorial due to recent COVID infection as well as hypoxia related to acute pulmonary edema and CHF exacerbation.
Patient is currently alert awake and latent reasonably responding to all questions.
With history of CVA he has a chronic left facial droop and left upper and lower extremity weakness.
Will check CT scan of the head without contrast with concern for acute abnormalities (patient recently on anticoagulation with Eliquis with moderate chronic thrombocytopenia)
Aspiration precautions
Speech and swallow evaluation
Acute hypoxic respiratory insufficiency
Acute CHF exacerbation with pulmonary edema.
Chest x-ray with cardiomegaly and bilateral interstitial infiltrates.
Elevated pro CHF BNP over 20,000
Echocardiogram 02/15 with LVEF 55-60%. Mild aortic stenosis with, mild TR
Updated echo::1. Left ventricle is normal in size. Mildly reduced left ventricular left ventricular systolic function. Mild concentric left ventricular hypertrophy. Anterior, anteroseptal and inferior hypokinesis. Left ventricular ejection fraction
is 45-50% by visual estimate.
2. Mildly dilated left atrium left atrium.
3. Trileaflet, thickened aortic leaflets with restricted leaflet motion. Mild aortic stenosis. Peak/mean gradients across the aortic valve are 25/15 mmHg. Mild aortic regurgitation.
4. Thickened mitral leaflets with adequate leaflet excursion. Mitral annular calcification. Mild mitral regurgitation.
5. When compared to the most recent echocardiogram from 01/25/2024, the LVEF is now estimated low normal to mildly reduced with an estimated ejection fraction of 45-50% as compared to 55-60% as noted on the prior study. The mean aortic valve
gradients have remained reasonably stable.
Diuresis initiated on Lasix 40 mg IV daily. Follow daily weight and renal function
Cardiology evaluation
COVID infection.
Follow temperature curve
Chest x-ray with diffuse bilateral infiltrate suspect secondary to cardiogenic pulmonary edema
Paxlovid initiated on 02/12
Transition to lower dose of steroids: Decadron 6 mg daily
COPD without evidence of exacerbation.
Minimal nonproductive cough.
No bronchospasm on exam.
Chest x-ray with no focal infiltrate.
Continue nebulizers.
Steroids as above
Essential hypertension.
Continue amlodipine.
Monitor BP trend with diuresis.
BRIAN, suspect cardiorenal state
CKD stage IIIb with baseline creatinine 1.5�2.
Bladder scan to rule out retention
Consider renal sonogram
Monitor renal function with diuresis.
Presumed hyperkalemia (on sodium zirconium PT). Hold while on Lasix. Follow BMP
Status post CVA with left hemiparesis as residual
Aspiration risk pending consult.
Seizure disorder.
Continue Keppra and Depakote. Depakote level 15.7
Continue preadmission neurologic regimen including Lexapro
Continue Pravachol and Zetia
Lower extremity DVT.
On Eliquis.
Dose of Eliquis reduced to 2.5 mg twice daily (by 50%) while on Paxlovid.
PAD.
Recent arterial ultrasound indicative of bilateral disease with right AMRIK 0.25 left AMRIK 0.29
No evidence for acute lower extremity ischemia
Outpatient follow-up with vascular surgery
Chronic thrombocytopenia
Listed diagnosis of a megakaryocytic thrombocytopenia
Moderate thrombocytopenia with platelet count over 50. Monitor closely while on Eliquis.
CODE STATUS DNR.
DVT prophylaxis Eliquis
Anticipated Discharge: 24 - 48 hours
Subjective/Interval History
-
Date of Service: February 14, 2025
Objective Data
-
Labs:
Laboratory Results
02/14/25
07:02
Sodium 135
Potassium 4.8
Chloride 107
Carbon Dioxide 25
BUN 55 H
Creatinine 2.0 H
Glucose 144 H
Calcium 8.2 L
Vital Signs:
Vital Signs
Temp Pulse Resp BP Pulse Ox
98.1 F 63 18 144/60 99
02/14/25 11:25 02/14/25 11:25 02/14/25 11:25 02/14/25 11:25 02/14/25 11:25
I&O
02/13/25 02/14/25 02/15/25
06:59 06:59 06:59
Intake Total 1080 / 1080 1440 / 1440
Output Total 975 / 975 1050 / 1050
Balance 105 / 105 390 / 390
Physical Exam
-
General: Well Developed and No Apparent Distress
HEENT: Normocephalic, Atraumatic and Moist Mucous Membranes
Respiratory: Rhonchi and Crackles; Negative Wheezes
Cardiac: Regular Rhythm and S1/S2; Negative Murmur, Rub or Gallop
GI: Soft, Nontender, Nondistended and Normal Bowel Sounds; Negative Organomegaly
Rectal: Deferred by Provider
Musculoskeletal: No Clubbing, No Cyanosis and No Edema
Skin: Negative Rash
Neuro: Awake, Alert, Oriented, AO x 3 and Other (Left facial droop, left upper extremity/left lower extremity weakness)
[2025-02-14 15:30] VITALS: BP 147/60
[2025-02-14] MEDS: PRAVACHOL 40 MG PO (21:18)
[2025-02-15 05:39] VITALS: BMI 29.9
[2025-02-15 06:47] LABS: Blood Urea Nitrogen 66 mg/dl (9-20); Calcium 8.2 mg/dl (8.4-10.2); Carbon Dioxide 23 mmol/L (22-30); Chloride 106 mmol/L (98-107); Estimated Creatinine Clearance 29 ml/min; Glucose 123 mg/dl (70-99); Potassium 5.1 mmol/L (3.5-5.1); Sodium 135 mmol/L (135-145); eGFR 27.79
[2025-02-15] MEDS: SPIRIVA RESPIMAT 2.5 MCG 2 PUFF INH (07:34)
[2025-02-15 08:19] VITALS: BP 114/43
[2025-02-15] MEDS: COLACE 100 MG PO ×2 (08:27→21:15)
[2025-02-15] MEDS: ELIQUIS 2.5 MG PO ×2 (08:27→21:16)
[2025-02-15] MEDS: DEPAKOTE ER (24 HR RELEASE) 500 MG PO ×2 (08:27→21:15)
[2025-02-15] MEDS: MUCINEX 600 MG PO ×2 (08:27→21:15)
[2025-02-15] MEDS: ZETIA 10 MG PO (08:27)
[2025-02-15] MEDS: DECADRON 6 MG IV (08:27)
[2025-02-15] MEDS: LASIX 40 MG IV (08:28)
[2025-02-15] MEDS: TOPROL XL 12.5 MG PO (08:28)
[2025-02-15] MEDS: LEXAPRO 20 MG PO (08:28)
[2025-02-15] MEDS: NORVASC 10 MG PO (08:28)
[2025-02-15] MEDS: KEPPRA 750 MG PO ×2 (08:28→21:15)
[2025-02-15] MEDS: PAXLOVID 150-100 MG DOSE PACK 1 DOSE PO ×2 (08:29→21:16)
--- NOTE | 2025-02-15 09:41 | CM ---
patient chart reviewed
Covid +
From [facility]
Referral in [facility]
PLAN: return to [facility] when stable
Report #; [phone]
Fax #: [phone]
--- NOTE | 2025-02-15 13:17 | W.PN.CARDCBS ---
Today's Communication / Plan
-
Hold Lasix
Impression / Plan
-
.
PCP: Dr. Sky Tinoco
Cardiology: None prior to admission
Impression:
Admitted with change in mental status and COVID-positive 02/11/2025
COVID-positive at long-term SNF prior to admission 02/11/2025
Change in mental status, possible TME
AE COPD
Acute HFmrEF
EF 45% by echo 02/12/2025
BRIAN on CKD 3B
h/o LLE DVT and started on Eliquis 11/30/2024
HTN
Hyperlipidemia
h/o CVA
Seizure disorder
Possible dementia
Possible TBI
Echo 01/25/2024: EF 55 to 60%, mild with peak/mean 28/17 mmHg, mild TR with PAP 23 mmHg, trivial pericardial effusion, mildly dilated aortic root with sinus of Valsalva, sinotubular junction and ascending aorta are all measuring 3.8 cm
Echo 02/12/2025: EF 45 to 50%, mild peak/mean 25/15 mmHg, mild aortic regurgitation, mild MR
Plan:
Acute HFmrEF In the setting of hypoxic respiratory distress and COVID
-proBNP was greater than 20,000 on admission with evidence of heart failure on x-ray.
-O2 weaned, currently on nasal cannula at 1
-Hold further IV Lasix. Transition IV diuresis to oral lasix 40mg daily pending Cr in am [ Patient was not taking a diuretic prior to admission].
- Cont to monitor Is and Os and daily wts.
-History of chronic renal insufficiency per chart with baseline creatinine 1.5�2 with creatinine today 2.4. Consider nephrology input
-Goal-directed medical therapy will be limited at this time due to renal insufficiency
- He has mild aortic stenosis would not be a cause for his heart failure
-He will need outpatient cardiac follow-up.
Chronic renal sufficiency with reported baseline 1.5�2 now 2.4
-Hold further diuretics
-Recommend bladder scan
-Consider nephrology consult
Continue treatment for COVID as per primary service.
History of stroke with left hemiparesis and seizure disorder
Lower extremity DVT 11/2024
Dose of Eliquis reduced to 2.5 mg twice daily
Chronic thrombocytopenia�monitor platelets closely on Eliquis
Patient is a long-term facility resident and DNR.
HPI: -Patient came to the hospital on Tuesday with a change in mental status in the setting of being COVID-positive and was admitted with possible TME, cardiology is now consulted for possible acute HF. Patient is a long-term resident at [facility], he has lived there for at least 2 years. Patient has a previous CVA with residual weakness and is a minimal to a moderate assist. Last admission was an ER visit on 11/30/2024 where he was found to have an LLE DVT and was started on Eliquis.
There is no previous cardiology evaluation inpatient or outpatient on my review of [place] in [facility] respectively. Patient is a poor historian, looking through all available records the patient has a previous CVA coupled with seizure
disorder, possible dementia and possible TBI. His nurse at the SNF noticed he was more confused and a day or 2 prior he had been diagnosed with COVID, so he was referred to the ER for further evaluation. In the ER patient was confused and
combative, but overall improved now. He remains hypoxic and was started on Decadron and Paxlovid. CXR suggested pulmonary edema and proBNP was elevated at 20,500. Patient is now being diuresed with Lasix 40 mg daily. Echo checked yesterday
showed EF is now reduced to 45 to 50%, but had been normal a year ago.
Progress Note - Apron Worker
Subjective
Date of Service: February 15, 2025
Seen and examined. Patient is awake and alert. Oriented to person and place. Offers no complaint
Objective
Labs:
02/13/25 07:33
02/15/25 05:36
Labs
Hgb 11.2 g/dL (13.0-18.0) L 02/13/25 07:33
Hct 34.4 % (39.0-52.0) L 02/13/25 07:33
Plt Count 58 10^3/uL (130-400) L 02/13/25 07:33
Sodium 135 mmol/L (135-145) 02/15/25 05:36
Potassium 5.1 mmol/L (3.5-5.1) 02/15/25 05:36
BUN 66 mg/dl (9-20) H 02/15/25 05:36
Creatinine 2.4 mg/dL (0.7-1.3) H 02/15/25 05:36
Glucose 123 mg/dl (70-99) H 02/15/25 05:36
Vital Signs and I&O:
Vital Signs
Temp Pulse Resp BP Pulse Ox
98.5 F 66 18 114/43 97
02/15/25 08:19 02/15/25 11:07 02/15/25 11:07 02/15/25 08:28 02/15/25 11:07
Vital Signs
Temp Pulse Resp BP Pulse Ox
98.5 F 66 18 114/43 97
02/15/25 08:19 02/15/25 11:07 02/15/25 11:07 02/15/25 08:28 02/15/25 11:07
Intake & Output
02/13/25 02/14/25 02/15/25 02/16/25
06:59 06:59 06:59 06:59
Intake Total 1080 / 1080 1440 / 1440 1620 / 1620
Output Total 975 / 975 1050 / 1050 725 / 725
Balance 105 / 105 390 / 390 895 / 895
Physical Exam
Physical Exam
General: No acute distress
Heart: Regular, positive S1/S2, 1/6 SM
Lungs: CTA b/l, negative wheezes/rales/rhonchi
Abd: Positive BS, NT/ND, neg rebound/rigidity/guarding
Ext: ++ edema
[2025-02-15 15:00] VITALS: BP 128/43
--- NOTE | 2025-02-15 16:14 | W.PN.HOSP.TC ---
Today's Communication/Plan
-
Cognitive and respiratory status improved
Awake
Has been off oxygen as of today
Creatinine up to 2.4.
Hold Lasix for now BMP
Complete Paxlovid course
Complete 7 days of Decadron
Assessment / Plan
Assessment / Plan
Impression
74 years old male with history of CVA with residual left-sided weakness, dementia, seizures, COPD, recent diagnosis of lower extremity DVT initiated on Eliquis 11/30/2024 presented from nursing facility with reported lethargy. Patient was recently
(unknown date diagnosed with COVID-19)
Altered mental status/TME likely multifactorial
Acute hypoxic respiratory insufficiency, requires 2 L of oxygen supplementation
Acute CHF preserved EF exacerbation with pulmonary edema
BRIAN on CKD with concern for cardiorenal state
Conditions prior to admission
Status post CVA with residual left-sided weakness
Seizure disorder.
Hypertension.
CKD stage IIIb
Recent diagnosis of lower extremity DVT on Eliquis.
Chronic thrombocytopenia (ambulatory ascitic thrombocytopenia).
Plan:
Altered mental status/TME likely multifactorial due to recent COVID infection as well as hypoxia related to acute pulmonary edema and CHF exacerbation.
Patient is currently alert awake and latent reasonably responding to all questions.
With history of CVA he has a chronic left facial droop and left upper and lower extremity weakness.
Will check CT scan of the head without contrast with concern for acute abnormalities (patient recently on anticoagulation with Eliquis with moderate chronic thrombocytopenia)
Aspiration precautions
Speech and swallow evaluation
Acute hypoxic respiratory insufficiency
Acute CHF exacerbation with pulmonary edema.
Chest x-ray with cardiomegaly and bilateral interstitial infiltrates.
Elevated pro CHF BNP over 20,000
Echocardiogram 02/15 with LVEF 55-60%. Mild aortic stenosis with, mild TR
Updated echo::1. Left ventricle is normal in size. Mildly reduced left ventricular left ventricular systolic function. Mild concentric left ventricular hypertrophy. Anterior, anteroseptal and inferior hypokinesis. Left ventricular ejection fraction
is 45-50% by visual estimate.
2. Mildly dilated left atrium left atrium.
3. Trileaflet, thickened aortic leaflets with restricted leaflet motion. Mild aortic stenosis. Peak/mean gradients across the aortic valve are 25/15 mmHg. Mild aortic regurgitation.
4. Thickened mitral leaflets with adequate leaflet excursion. Mitral annular calcification. Mild mitral regurgitation.
5. When compared to the most recent echocardiogram from 01/25/2024, the LVEF is now estimated low normal to mildly reduced with an estimated ejection fraction of 45-50% as compared to 55-60% as noted on the prior study. The mean aortic valve
gradients have remained reasonably stable.
Overall respiratory status improved and patient weaned off oxygen supplementation as of 02/15.
Weight plateau around 97 kg suspect dry weight. Creatinine mi to 2.4.
Hold Lasix and follow-up BMP
COVID infection.
Follow temperature curve
Chest x-ray with diffuse bilateral infiltrate suspect secondary to cardiogenic pulmonary edema
Paxlovid initiated on 02/12 to complete 5-day course
Transition to lower dose of steroids: Decadron 6 mg daily
COPD without evidence of exacerbation.
Minimal nonproductive cough.
No bronchospasm on exam.
Chest x-ray with no focal infiltrate.
Continue nebulizers.
Steroids as above
Essential hypertension.
Continue amlodipine.
Monitor BP trend with diuresis.
BRIAN, suspect cardiorenal state
CKD stage IIIb with baseline creatinine 1.5�2.
Bladder scan to rule out retention
Consider renal sonogram
Monitor renal function with diuresis.
Presumed hyperkalemia (on sodium zirconium PT). Hold while on Lasix. Follow BMP
Status post CVA with left hemiparesis as residual
Aspiration risk pending consult.
Seizure disorder.
Continue Keppra and Depakote. Depakote level 15.7
Continue preadmission neurologic regimen including Lexapro
Continue Pravachol and Zetia
Lower extremity DVT.
On Eliquis.
Dose of Eliquis reduced to 2.5 mg twice daily (by 50%) while on Paxlovid.
PAD.
Recent arterial ultrasound indicative of bilateral disease with right AMRIK 0.25 left AMRIK 0.29
No evidence for acute lower extremity ischemia
Outpatient follow-up with vascular surgery
Chronic thrombocytopenia
Listed diagnosis of a megakaryocytic thrombocytopenia
Moderate thrombocytopenia with platelet count over 50. Monitor closely while on Eliquis.
CODE STATUS DNR.
DVT prophylaxis Eliquis
Anticipated Discharge: 24 - 48 hours
Subjective/Interval History
-
Date of Service: February 15, 2025
Objective Data
-
Labs:
Laboratory Results
02/15/25
05:36
Sodium 135
Potassium 5.1
Chloride 106
Carbon Dioxide 23
BUN 66 H
Creatinine 2.4 H
Glucose 123 H
Calcium 8.2 L
Vital Signs:
Vital Signs
Temp Pulse Resp BP Pulse Ox
98.5 F 63 18 114/43 94
02/15/25 08:19 02/15/25 15:08 02/15/25 15:08 02/15/25 08:28 02/15/25 15:08
I&O
02/14/25 02/15/25 02/16/25
06:59 06:59 06:59
Intake Total 1440 / 1440 1620 / 1620
Output Total 1050 / 1050 725 / 725
Balance 390 / 390 895 / 895
Physical Exam
-
General: Well Developed and No Apparent Distress
HEENT: Normocephalic, Atraumatic and Moist Mucous Membranes
Respiratory: Rhonchi and Crackles; Negative Wheezes
Cardiac: Regular Rhythm and S1/S2; Negative Murmur, Rub or Gallop
GI: Soft, Nontender, Nondistended and Normal Bowel Sounds; Negative Organomegaly
Rectal: Deferred by Provider
Musculoskeletal: No Clubbing, No Cyanosis and No Edema
Skin: Negative Rash
Neuro: Awake, Alert, Oriented, AO x 3 and Other (Left facial droop, left upper extremity/left lower extremity weakness)
[2025-02-15] MEDS: PRAVACHOL 40 MG PO (21:16)
[2025-02-15 23:35] VITALS: BP 142/59
[2025-02-16 06:00] VITALS: BMI 30.1
[2025-02-16 07:00] VITALS: BP 152/61
[2025-02-16 07:57] LABS: Blood Urea Nitrogen 81 mg/dl (9-20); Calcium 8.2 mg/dl (8.4-10.2); Carbon Dioxide 25 mmol/L (22-30); Chloride 101 mmol/L (98-107); Estimated Creatinine Clearance 31 ml/min; Glucose 112 mg/dl (70-99); Potassium 5.8 mmol/L (3.5-5.1); Sodium 128 mmol/L (135-145); eGFR 26.47
[2025-02-16] MEDS: SPIRIVA RESPIMAT 2.5 MCG 2 PUFF INH (08:00)
[2025-02-16] MEDS: DEPAKOTE ER (24 HR RELEASE) 500 MG PO ×2 (09:36→21:18)
[2025-02-16] MEDS: LOKELMA 10 GRAM PO (09:36)
[2025-02-16] MEDS: MUCINEX 600 MG PO ×2 (09:36→21:18)
[2025-02-16] MEDS: ZETIA 10 MG PO (09:36)
[2025-02-16] MEDS: KEPPRA 750 MG PO ×2 (09:36→21:18)
[2025-02-16] MEDS: TOPROL XL 12.5 MG PO (09:36)
[2025-02-16] MEDS: NORVASC 10 MG PO (09:37)
[2025-02-16] MEDS: DECADRON 6 MG IV (09:37)
[2025-02-16] MEDS: COLACE 100 MG PO ×2 (09:37→21:18)
[2025-02-16] MEDS: ELIQUIS 2.5 MG PO ×2 (09:37→21:18)
[2025-02-16] MEDS: LEXAPRO 20 MG PO (09:37)
--- NOTE | 2025-02-16 10:41 | W.PN.HOSP.TC ---
Today's Communication/Plan
-
Lokelma; monitor BMP. hold Lasix
continue Paxlovid/Decadron
PT/OT/ST
Assessment / Plan
Assessment / Plan
Impression
74 years old male with history of CVA with residual left-sided weakness, dementia, seizures, COPD, recent diagnosis of lower extremity DVT initiated on Eliquis 11/30/2024 presented from nursing facility with reported lethargy. Patient was recently
(unknown date diagnosed with COVID-19)
Altered mental status/TME likely multifactorial
Acute hypoxic respiratory insufficiency, requires 2 L of oxygen supplementation
Acute CHF preserved EF exacerbation with pulmonary edema
BRIAN on CKD with concern for cardiorenal state
Hyponatremia from diuresis
Conditions prior to admission
Status post CVA with residual left-sided weakness
Seizure disorder.
Hypertension.
CKD stage IIIb
Recent diagnosis of lower extremity DVT on Eliquis.
Chronic thrombocytopenia (ambulatory ascitic thrombocytopenia).
Plan:
Altered mental status/TME likely multifactorial due to recent COVID infection as well as hypoxia related to acute pulmonary edema and CHF exacerbation.
Patient is currently alert awake and latent reasonably responding to all questions.
With history of CVA he has a chronic left facial droop and left upper and lower extremity weakness.
CT head negative
Aspiration precautions
Speech and swallow evaluation
Acute hypoxic respiratory insufficiency
Acute CHF exacerbation with pulmonary edema.
Chest x-ray with cardiomegaly and bilateral interstitial infiltrates.
Elevated pro CHF BNP over 20,000
Echocardiogram 02/15 with LVEF 55-60%. Mild aortic stenosis with, mild TR
Updated echo::1. Left ventricle is normal in size. Mildly reduced left ventricular left ventricular systolic function. Mild concentric left ventricular hypertrophy. Anterior, anteroseptal and inferior hypokinesis. Left ventricular ejection fraction
is 45-50% by visual estimate.
2. Mildly dilated left atrium left atrium.
3. Trileaflet, thickened aortic leaflets with restricted leaflet motion. Mild aortic stenosis. Peak/mean gradients across the aortic valve are 25/15 mmHg. Mild aortic regurgitation.
4. Thickened mitral leaflets with adequate leaflet excursion. Mitral annular calcification. Mild mitral regurgitation.
5. When compared to the most recent echocardiogram from 01/25/2024, the LVEF is now estimated low normal to mildly reduced with an estimated ejection fraction of 45-50% as compared to 55-60% as noted on the prior study. The mean aortic valve
gradients have remained reasonably stable.
Overall respiratory status improved and patient weaned off oxygen supplementation as of 02/15.
Weight plateau around 97 kg suspect dry weight. Creatinine mi to 2.5.
continue to Hold Lasix and follow-up BMP
COVID-19 infection.
Follow temperature curve
Chest x-ray with diffuse bilateral infiltrate suspect secondary to cardiogenic pulmonary edema
Paxlovid initiated on 02/12 to complete 5-day course
continue Decadron 6 mg daily
COPD without evidence of exacerbation.
Minimal nonproductive cough.
No bronchospasm on exam.
Chest x-ray with no focal infiltrate.
Continue nebulizers/inhalers
Steroids as above
Essential hypertension.
Continue amlodipine.
Monitor BP trend with diuresis.
BRIAN, suspect cardiorenal state
CKD stage IIIb with baseline creatinine 1.5�2.
Bladder scan to rule out retention
Consider renal sonogram
holding diuresis
Presumed hyperkalemia (on sodium zirconium PHYSICAL THERAPIST CLINIC DIRECTOR). Hyperkalemia 02/16; Lokelma dose given. follow BMP
Status post CVA with left hemiparesis as residual
Aspiration risk pending consult.
Seizure disorder.
Continue Keppra and Depakote. Depakote level 15.7
Continue preadmission neurologic regimen including Lexapro
Continue Pravachol and Zetia
Lower extremity DVT.
On Eliquis.
Dose of Eliquis reduced to 2.5 mg twice daily (by 50%) while on Paxlovid.
PAD.
Recent arterial ultrasound indicative of bilateral disease with right AMRIK 0.25 left AMRIK 0.29
No evidence for acute lower extremity ischemia
Outpatient follow-up with vascular surgery
Chronic thrombocytopenia
Listed diagnosis of a megakaryocytic thrombocytopenia
Moderate thrombocytopenia with platelet count over 50. Monitor closely while on Eliquis.
Hyponatremia - monitor BMP while off Lasix
CODE STATUS DNR.
DVT prophylaxis Eliquis
Anticipated Discharge: > 48 hours
Subjective/Interval History
-
Date of Service: February 16, 2025
resting comfortably, denies cp or SOB
O2 weaned off this AM
Objective Data
-
Labs:
Laboratory Results
02/16/25
07:12
Sodium 128 L
Potassium 5.8 H
Chloride 101
Carbon Dioxide 25
BUN 81 H
Creatinine 2.5 H
Glucose 112 H
Calcium 8.2 L
Vital Signs:
Vital Signs
Temp Pulse Resp BP Pulse Ox
97 F 61 18 152/61 95
02/16/25 07:00 02/16/25 08:02 02/16/25 08:02 02/16/25 07:00 02/16/25 08:02
I&O
02/15/25 02/16/25 02/17/25
06:59 06:59 06:59
Intake Total 1620 / 1620 1640 / 1640
Output Total 725 / 725 1200 / 1200
Balance 895 / 895 440 / 440
Physical Exam
-
General: No Apparent Distress
HEENT: Normocephalic and Atraumatic
Respiratory: Wheezes (faint)
Cardiac: Regular Rhythm and S1/S2
Neuro: Awake and Alert
Psych: Calm
Data Reviewed
-
Total Time Spent with Patient (in minutes): 42
Labs: Labs Reviewed by me
[2025-02-16] MEDS: PAXLOVID 150-100 MG DOSE PACK 1 DOSE PO ×2 (11:00→21:23)
--- NOTE | 2025-02-16 11:00 | W.PN.CARDCBS ---
Today's Communication / Plan
-
Patient is much more awake and on room air
Likely overdiuresed and will continue to hold diuretics with creatinine of 2.5
Impression / Plan
-
.
PCP: Dr. Sky Tinoco
Cardiology: None prior to admission
Impression:
Admitted with change in mental status and COVID-positive 02/11/2025
COVID-positive at long-term SNF prior to admission 02/11/2025
Change in mental status, possible TME
AE COPD
Acute HFmrEF
Hyperkalemia
Hypokalemia
EF 45% by echo 02/12/2025
BRIAN on CKD 3B
h/o LLE DVT and started on Eliquis 11/30/2024
HTN
Hyperlipidemia
h/o CVA
Seizure disorder
Possible dementia
Possible TBI
DNR
Echo 01/25/2024: EF 55 to 60%, mild with peak/mean 28/17 mmHg, mild TR with PAP 23 mmHg, trivial pericardial effusion, mildly dilated aortic root with sinus of Valsalva, sinotubular junction and ascending aorta are all measuring 3.8 cm
Echo 02/12/2025: EF 45 to 50%, mild peak/mean 25/15 mmHg, mild aortic regurgitation, mild MR
Plan:
Patient is much more awake and on room air.
Creatinine has worsened significantly to 2.5 on 02/16/2025 with baseline creatinine of 1.5-2
Continue to hold diuretics
Continue treatment for COVID as per primary service.
History of stroke with left hemiparesis and seizure disorder
Lower extremity DVT 11/2024
Dose of Eliquis reduced to 2.5 mg twice daily
Chronic thrombocytopenia�monitor platelets closely on Eliquis
Discussed with primary service
HPI: -Patient came to the hospital on Tuesday with a change in mental status in the setting of being COVID-positive and was admitted with possible TME, cardiology is now consulted for possible acute HF. Patient is a long-term resident at [facility], he has lived there for at least 2 years. Patient has a previous CVA with residual weakness and is a minimal to a moderate assist. Last admission was an ER visit on 11/30/2024 where he was found to have an LLE DVT and was started on Eliquis.
There is no previous cardiology evaluation inpatient or outpatient on my review of [email or web address] in [facility] systems respectively. Patient is a poor historian, looking through all available records the patient has a previous CVA coupled with seizure
disorder, possible dementia and possible TBI. His nurse at the SNF noticed he was more confused and a day or 2 prior he had been diagnosed with COVID, so he was referred to the ER for further evaluation. In the ER patient was confused and
combative, but overall improved now. He remains hypoxic and was started on Decadron and Paxlovid. CXR suggested pulmonary edema and proBNP was elevated at 20,500. Patient is now being diuresed with Lasix 40 mg daily. Echo checked yesterday
showed EF is now reduced to 45 to 50%, but had been normal a year ago.
Progress Note - It Assistant
Subjective
Date of Service: February 16, 2025
No complaints
Objective
Labs:
02/13/25 07:33
02/16/25 07:12
Labs
Hgb 11.2 g/dL (13.0-18.0) L 02/13/25 07:33
Hct 34.4 % (39.0-52.0) L 02/13/25 07:33
Plt Count 58 10^3/uL (130-400) L 02/13/25 07:33
Sodium 128 mmol/L (135-145) L 02/16/25 07:12
Potassium 5.8 mmol/L (3.5-5.1) H 02/16/25 07:12
BUN 81 mg/dl (9-20) H 02/16/25 07:12
Creatinine 2.5 mg/dL (0.7-1.3) H 02/16/25 07:12
Glucose 112 mg/dl (70-99) H 02/16/25 07:12
Vital Signs and I&O:
Vital Signs
Temp Pulse Resp BP Pulse Ox
97 F 61 18 152/61 95
02/16/25 07:00 02/16/25 08:02 02/16/25 08:02 02/16/25 07:00 02/16/25 08:02
Vital Signs
Temp Pulse Resp BP Pulse Ox
97 F 61 18 152/61 95
02/16/25 07:00 02/16/25 08:02 02/16/25 08:02 02/16/25 07:00 02/16/25 08:02
Intake & Output
02/14/25 02/15/25 02/16/25 02/17/25
06:59 06:59 06:59 06:59
Intake Total 1440 / 1440 1620 / 1620 1640 / 1640
Output Total 1050 / 1050 725 / 725 1200 / 1200
Balance 390 / 390 895 / 895 440 / 440
Physical Exam
Physical Exam
General: Awake but confused
Neck: Supple, no JVD, HJR, carotids +2 B/L, no bruits bilaterally.
Heart: Non displaced PMI, RRR, no murmurs, No S3, S4, no rubs.
Lungs: Scattered rhonchi
Extremities: No clubbing, cyanosis or edema bilaterally.
Neuro: Awake but confused
[2025-02-16 13:46] VITALS: BP 115/49; BP 151/63; PULSE 61; O2SAT 96
[2025-02-16 15:00] VITALS: BP 158/68
[2025-02-16] MEDS: PRAVACHOL 40 MG PO (21:19)
[2025-02-16] MEDS: TYLENOL 650 MG PO (21:24)
[2025-02-16 23:25] VITALS: BP 128/44
[2025-02-17 06:00] VITALS: BMI 30.5
[2025-02-17] MEDS: SPIRIVA RESPIMAT 2.5 MCG 2 PUFF INH (07:34)
[2025-02-17 08:05] VITALS: BP 137/61
[2025-02-17] MEDS: KEPPRA 750 MG PO ×2 (09:36→20:16)
[2025-02-17] MEDS: ZETIA 10 MG PO (09:36)
[2025-02-17] MEDS: LEXAPRO 20 MG PO (09:37)
[2025-02-17] MEDS: COLACE 100 MG PO ×2 (09:37→20:16)
[2025-02-17] MEDS: TOPROL XL 12.5 MG PO (09:37)
[2025-02-17] MEDS: MUCINEX 600 MG PO ×2 (09:37→20:16)
[2025-02-17] MEDS: NORVASC 10 MG PO (09:37)
[2025-02-17] MEDS: DEPAKOTE ER (24 HR RELEASE) 500 MG PO ×2 (09:37→20:17)
[2025-02-17] MEDS: ELIQUIS 2.5 MG PO ×2 (09:37→20:17)
[2025-02-17 09:44] LABS: Hematocrit 34.4 % (39.0-52.0); Hemoglobin 12.1 g/dL (13.0-18.0); Mean Corp Hgb Conc. 35.2 g/dL (33.0-37.0); Mean Corpuscular Volume 82.9 fL (80.0-94.0); Platelet Count 80 10^3/uL (130-400); Red Cell Dist. Width 12.8 % (11.5-14.5)
[2025-02-17 09:58] LABS: Blood Urea Nitrogen 94 mg/dl (9-20); Calcium 7.8 mg/dl (8.4-10.2); Carbon Dioxide 23 mmol/L (22-30); Chloride 102 mmol/L (98-107); Glucose 116 mg/dl (70-99); Potassium 5.1 mmol/L (3.5-5.1); Sodium 131 mmol/L (135-145)
[2025-02-17 10:07] LABS: Estimated Creatinine Clearance 32 ml/min; eGFR 26.47
[2025-02-17] MEDS: DECADRON 6 MG IV (10:26)
--- NOTE | 2025-02-17 11:18 | W.PN.HOSP.TC ---
Today's Communication/Plan
-
resume Lokelma 3x/weekly dosing
continue holding Lasix
decrease steroids due to agitation
AM BMP
Assessment / Plan
Assessment / Plan
Impression
74 years old male with history of CVA with residual left-sided weakness, dementia, seizures, COPD, recent diagnosis of lower extremity DVT initiated on Eliquis 11/30/2024 presented from nursing facility with reported lethargy. Patient was recently
(unknown date diagnosed with COVID-19)
Altered mental status/TME likely multifactorial
Acute hypoxic respiratory insufficiency, requires 2 L of oxygen supplementation
Acute CHF preserved EF exacerbation with pulmonary edema
BRIAN on CKD with concern for cardiorenal state
Hyponatremia from diuresis
Conditions prior to admission
Status post CVA with residual left-sided weakness
Seizure disorder.
Hypertension.
CKD stage IIIb
Recent diagnosis of lower extremity DVT on Eliquis.
Chronic thrombocytopenia (ambulatory ascitic thrombocytopenia).
Plan:
Altered mental status/TME likely multifactorial due to recent COVID infection as well as hypoxia related to acute pulmonary edema and CHF exacerbation.
Patient is currently alert awake and latent reasonably responding to all questions.
With history of CVA he has a chronic left facial droop and left upper and lower extremity weakness.
CT head negative
Aspiration precautions
Speech and swallow evaluation
Acute hypoxic respiratory insufficiency
Acute CHF exacerbation with pulmonary edema.
Chest x-ray with cardiomegaly and bilateral interstitial infiltrates.
Elevated pro CHF BNP over 20,000
Echocardiogram 02/15 with LVEF 55-60%. Mild aortic stenosis with, mild TR
Updated echo::1. Left ventricle is normal in size. Mildly reduced left ventricular left ventricular systolic function. Mild concentric left ventricular hypertrophy. Anterior, anteroseptal and inferior hypokinesis. Left ventricular ejection fraction
is 45-50% by visual estimate.
2. Mildly dilated left atrium left atrium.
3. Trileaflet, thickened aortic leaflets with restricted leaflet motion. Mild aortic stenosis. Peak/mean gradients across the aortic valve are 25/15 mmHg. Mild aortic regurgitation.
4. Thickened mitral leaflets with adequate leaflet excursion. Mitral annular calcification. Mild mitral regurgitation.
5. When compared to the most recent echocardiogram from 01/25/2024, the LVEF is now estimated low normal to mildly reduced with an estimated ejection fraction of 45-50% as compared to 55-60% as noted on the prior study. The mean aortic valve
gradients have remained reasonably stable.
Overall respiratory status improved and patient weaned off oxygen supplementation as of 02/15.
Weight plateau around 97 kg suspect dry weight. Creatinine mi to 2.5.
continue to Hold Lasix and follow-up BMP
COVID-19 infection.
Follow temperature curve
Chest x-ray with diffuse bilateral infiltrate suspect secondary to cardiogenic pulmonary edema
Paxlovid initiated on 02/12 to complete 5-day course
continue Decadron daily; reduce to 4mg due to agitation
COPD without evidence of exacerbation.
Minimal nonproductive cough.
No bronchospasm on exam.
Chest x-ray with no focal infiltrate.
Continue nebulizers/inhalers
Steroids as above
Essential hypertension.
Continue amlodipine.
Monitor BP trend with diuresis.
BRIAN, suspect cardiorenal state
CKD stage IIIb with baseline creatinine 1.5�2.
Bladder scan to rule out retention
Consider renal sonogram
holding diuresis
Presumed hyperkalemia (on sodium zirconium CHUCK TENDER). Hyperkalemia 02/16; Lokelma dose given. follow BMP. Resume M/W/F lokelma dosing.
Status post CVA with left hemiparesis as residual
Aspiration risk pending consult.
Seizure disorder.
Continue Keppra and Depakote. Depakote level 15.7
Continue preadmission neurologic regimen including Lexapro
Continue Pravachol and Zetia
Lower extremity DVT.
On Eliquis.
Dose of Eliquis reduced to 2.5 mg twice daily (by 50%) while on Paxlovid.
PAD.
Recent arterial ultrasound indicative of bilateral disease with right AMRIK 0.25 left AMRIK 0.29
No evidence for acute lower extremity ischemia
Outpatient follow-up with vascular surgery
Chronic thrombocytopenia
Listed diagnosis of a megakaryocytic thrombocytopenia
Moderate thrombocytopenia with platelet count over 50. Monitor closely while on Eliquis.
Hyponatremia - monitor BMP while off Lasix
Code: DNR/DNI
DVT ppx: Eliquis
Anticipated Discharge: > 48 hours
Subjective/Interval History
-
Date of Service: February 17, 2025
agitated this AM, but able to be redirected
on room air
Objective Data
-
Labs:
Laboratory Results
02/17/25
08:45
WBC 5.6
Hgb 12.1 L
Hct 34.4 L
Plt Count 80 L D
Sodium 131 L
Potassium 5.1
Chloride 102
Carbon Dioxide 23
BUN 94 H
Creatinine 2.5 H
Glucose 116 H
Calcium 7.8 L
Vital Signs:
Vital Signs
Temp Pulse Resp BP Pulse Ox
98.0 F 61 16 137/61 94
02/17/25 08:05 02/17/25 08:05 02/17/25 08:05 02/17/25 08:05 02/17/25 08:05
I&O
02/16/25 02/17/25 02/18/25
06:59 06:59 06:59
Intake Total 1640 / 1640 840 / 840
Output Total 1200 / 1200 750 / 750
Balance 440 / 440 90 / 90
Physical Exam
-
General: No Apparent Distress
HEENT: Normocephalic and Atraumatic
Respiratory: Negative Wheezes
Cardiac: Regular Rhythm and S1/S2
Genito-urinary: No Costovertebral Tender
Neuro: AO x 3
Psych: Calm
Data Reviewed
-
Total Time Spent with Patient (in minutes): 42
Labs: Labs Reviewed by me
[2025-02-17 15:25] VITALS: BP 158/74; O2SAT 96
[2025-02-17 16:10] VITALS: BP 127/39
[2025-02-17] MEDS: PRAVACHOL 40 MG PO (20:17)
[2025-02-17 23:15] VITALS: BP 150/56
[2025-02-18 05:06] VITALS: BMI 30.6
[2025-02-18 07:12] VITALS: BP 141/58
[2025-02-18] MEDS: SPIRIVA RESPIMAT 2.5 MCG 2 PUFF INH (07:15)
[2025-02-18] MEDS: DEPAKOTE ER (24 HR RELEASE) 500 MG PO ×2 (07:57→19:49)
[2025-02-18] MEDS: ELIQUIS 2.5 MG PO (07:57)
[2025-02-18] MEDS: COLACE 100 MG PO ×2 (07:57→19:50)
[2025-02-18] MEDS: TYLENOL 650 MG PO ×2 (07:57→22:39)
[2025-02-18] MEDS: MUCINEX 600 MG PO ×2 (07:57→19:49)
[2025-02-18] MEDS: ZETIA 10 MG PO (07:57)
[2025-02-18] MEDS: KEPPRA 750 MG PO ×2 (07:57→19:50)
[2025-02-18] MEDS: LEXAPRO 20 MG PO (07:58)
[2025-02-18] MEDS: DECADRON 4 MG IV (07:58)
[2025-02-18] MEDS: TOPROL XL 12.5 MG PO (07:59)
[2025-02-18 08:00] VITALS: BP 150/58
[2025-02-18] MEDS: NORVASC 10 MG PO (08:02)
[2025-02-18] MEDS: LOKELMA 10 GRAM PO (08:04)
[2025-02-18 09:12] LABS: Hematocrit 34.4 % (39.0-52.0); Hemoglobin 12.2 g/dL (13.0-18.0); Mean Corp Hgb Conc. 35.5 g/dL (33.0-37.0); Mean Corpuscular Volume 82.5 fL (80.0-94.0); Platelet Count 81 10^3/uL (130-400); Red Cell Dist. Width 12.6 % (11.5-14.5)
[2025-02-18 09:37] LABS: Blood Urea Nitrogen 100 mg/dl (9-20); Calcium 7.9 mg/dl (8.4-10.2); Carbon Dioxide 22 mmol/L (22-30); Chloride 102 mmol/L (98-107); Glucose 115 mg/dl (70-99); Potassium 4.9 mmol/L (3.5-5.1); Sodium 127 mmol/L (135-145)
[2025-02-18 09:49] LABS: Estimated Creatinine Clearance 27 ml/min; eGFR 22.15
--- NOTE | 2025-02-18 11:15 | PTOTSP ---
Speech Therapy Evaluation:
Pt with chronic risk factors of dysphagia including hx of dementia, COPD, seizures, and CVA, acutely compounded by TME. Assessment somewhat limited due to participation, however oropharyngeal swallow appeared grossly functional. No overt s/sx of
aspiration. Aspiration risk elevated during periods of confusion, however pt appears to have been tolerating diet since admission 02/11. WBC WNL. Pt on room air. CXR without PNA
Recommend:
1. Continue regular solids and thin liquids
2. Medications as tolerated
3. General aspiration and reflux precautions
4. Distant supervision and partial assistance with PO intake
5. RIPENING ROOM ATTENDANT to s/o - please reconsult as indicated
--- NOTE | 2025-02-18 13:26 | W.PN.HOSP.TC ---
Today's Communication/Plan
-
BRIAN. Creatinine bumped to 2.9
Urine studies
Renal sonogram
Serum cortisol
Nephrology evaluation
Hold Lasix
Assessment / Plan
Assessment / Plan
Impression
74 years old male with history of CVA with residual left-sided weakness, dementia, seizures, COPD, recent diagnosis of lower extremity DVT initiated on Eliquis 11/30/2024 presented from nursing facility with reported lethargy. Patient was recently
(unknown date diagnosed with COVID-19)
Altered mental status/TME likely multifactorial
Acute hypoxic respiratory insufficiency, requires 2 L of oxygen supplementation
Acute CHF preserved EF exacerbation with pulmonary edema
BRIAN on CKD with concern for cardiorenal state
Hyponatremia from diuresis
Conditions prior to admission
Status post CVA with residual left-sided weakness
Seizure disorder.
Hypertension.
CKD stage IIIb
Recent diagnosis of lower extremity DVT on Eliquis.
Chronic thrombocytopenia (ambulatory ascitic thrombocytopenia).
Plan:
Altered mental status/TME likely multifactorial due to recent COVID infection as well as hypoxia related to acute pulmonary edema and CHF exacerbation.
Patient is currently alert awake and latent reasonably responding to all questions.
With history of CVA he has a chronic left facial droop and left upper and lower extremity weakness.
CT head negative
Aspiration precautions
Speech and swallow evaluation
Acute hypoxic respiratory insufficiency
Acute CHF exacerbation with pulmonary edema.
Chest x-ray with cardiomegaly and bilateral interstitial infiltrates.
Elevated pro CHF BNP over 20,000
Echocardiogram 02/15 with LVEF 55-60%. Mild aortic stenosis with, mild TR
Updated echo::1. Left ventricle is normal in size. Mildly reduced left ventricular left ventricular systolic function. Mild concentric left ventricular hypertrophy. Anterior, anteroseptal and inferior hypokinesis. Left ventricular ejection fraction
is 45-50% by visual estimate.
2. Mildly dilated left atrium left atrium.
3. Trileaflet, thickened aortic leaflets with restricted leaflet motion. Mild aortic stenosis. Peak/mean gradients across the aortic valve are 25/15 mmHg. Mild aortic regurgitation.
4. Thickened mitral leaflets with adequate leaflet excursion. Mitral annular calcification. Mild mitral regurgitation.
5. When compared to the most recent echocardiogram from 01/25/2024, the LVEF is now estimated low normal to mildly reduced with an estimated ejection fraction of 45-50% as compared to 55-60% as noted on the prior study. The mean aortic valve
gradients have remained reasonably stable.
Overall respiratory status improved and patient weaned off oxygen supplementation as of 02/15.
Weight plateau around 97 kg suspect dry weight. Creatinine mi to 2.9
continue to Hold Lasix and follow-up BMP
COVID-19 infection.
Follow temperature curve
Chest x-ray with diffuse bilateral infiltrate suspect secondary to cardiogenic pulmonary edema
Completed 5-day course of Paxlovid
Completed 7-day course of Decadron
Overall respiratory status improved and has been off oxygen supplementation
COPD without evidence of exacerbation.
Minimal nonproductive cough.
No bronchospasm on exam.
Chest x-ray with no focal infiltrate.
Continue nebulizers/inhalers
Steroids as above
Essential hypertension.
Continue amlodipine.
Monitor BP trend with diuresis.
BRIAN, suspect cardiorenal state. Creatinine is up to 2.9
Hyponatremia sodium 127
Hyperkalemia
CKD stage IIIb with baseline creatinine 1.5�2.
Bladder scan with no retention
Urine sodium
Urine osmolarity
Check serum cortisol (hyponatremia/hyperkalemia)
Renal sonogram
Nephrology consultation
Continue holding Lasix
Presumed hyperkalemia (on sodium zirconium INSERTER OPERATOR). Hyperkalemia 02/16; Lokelma dose given. follow BMP. Resume M/W/F lokelma dosing.
Status post CVA with left hemiparesis as residual
Aspiration risk pending consult.
Seizure disorder.
Continue Keppra and Depakote. Depakote level 15.7
Continue preadmission neurologic regimen including Lexapro
Continue Pravachol and Zetia
Lower extremity DVT.
On Eliquis.
PAD.
Recent arterial ultrasound indicative of bilateral disease with right AMRIK 0.25 left AMRIK 0.29
No evidence for acute lower extremity ischemia
Outpatient follow-up with vascular surgery
Chronic thrombocytopenia
Listed diagnosis of a megakaryocytic thrombocytopenia
Moderate thrombocytopenia with platelet count over 50. Monitor closely while on Eliquis.
Hyponatremia - monitor BMP while off Lasix
Code: DNR/DNI
DVT ppx: Eliquis
Anticipated Discharge: 24 - 48 hours
Subjective/Interval History
-
Date of Service: February 18, 2025
Objective Data
-
Labs:
Laboratory Results
02/18/25
08:41
WBC 6.4
Hgb 12.2 L
Hct 34.4 L
Plt Count 81 L
Sodium 127 L
Potassium 4.9
Chloride 102
Carbon Dioxide 22
BUN 100 H
Creatinine 2.9 H
Glucose 115 H
Calcium 7.9 L
Vital Signs:
Vital Signs
Temp Pulse Resp BP Pulse Ox
97.8 F 61 16 150/58 94
02/18/25 08:00 02/18/25 11:26 02/18/25 11:26 02/18/25 08:02 02/18/25 11:26
I&O
02/17/25 02/18/25 02/19/25
06:59 06:59 06:59
Intake Total 840 / 840
Output Total 750 / 750
Balance 90 / 90
Physical Exam
-
General: No Apparent Distress
HEENT: Normocephalic and Atraumatic
Respiratory: Negative Wheezes
Cardiac: Regular Rhythm and S1/S2
Genito-urinary: No Costovertebral Tender
Neuro: AO x 3
Psych: Calm
[2025-02-18 16:00] VITALS: BP 144/61
[2025-02-18 16:18] LABS: Cortisol, Random 6.9 ug/dl
--- NOTE | 2025-02-18 16:41 | W.CON.NEPH ---
Consultation
-
Date/Time Consultation Requested: 02/18/2025 3 PM
Date/Time Consultation Performed: 02/18/2025 3 PM
Requesting Provider: Dr. Koehler
Performing Provider: Dr. Fabian
Reason for Consultation: BRIAN
Medical History
-
Chief Complaint: BRIAN
History of Present Illness:
This is a 74-year-old gentleman who has heart failure with mildly reduced ejection fraction of 45% who is a long-term resident at [facility]. His heart failure is treated with chronic diuretic therapy. He has history of stroke now on Eliquis
which is also for a left lower leg DVT from November 2024. He appears to have baseline CKD with a creatinine close to 1.6 the last year his creatinine was 1.0. He also appears to have chronic hyperkalemia as he is on Lokelma 3 times weekly. He is
likely not on RAAS and admission as a result of this. He was in the emergency room because of confusion and he was diagnosed with COVID. He also appeared to be volume overloaded by x-ray and a elevated proBNP and was admitted. He was diuresed
with intravenous Lasix. Over the next several days he also received Decadron as well as Paxlovid. His creatinine then began to rise, now up at 2.9 with a BUN of 100. He also has developed hyponatremia. He did have 1 instance of hyperkalemia at
5.8. Paxlovid was discontinued as well as his Decadron and his Lasix was held. We are asked to assist with management of the BRIAN. Urine studies have also disclosed 4+ albumin
Past Medical History
CKD 3B
h/o LLE DVT and started on Eliquis 11/30/2024
HTN
Hyperlipidemia
h/o CVA
Seizure disorder
Possible dementia
Possible TBI
Social History
Tobacco: Former Smoker
Alcohol: None
Family History
Family History: Not Pertinent
Allergies / Home Medications
Allergy/AdvReac Type Severity Reaction Status Date / Time
No Known Allergies Allergy Unverified 11/30/24 10:36
�Medication �Instructions �Recorded �Confirmed �Type
acetaminophen 325 mg tablet 650 mg PO Q4HPRN PRN fever/pain 01/25/24 02/11/25 History
(Tylenol)
albuterol sulfate 2.5 mg/3 mL 2.5 mg inhalation Q6H PRN wheezing 01/25/24 02/11/25 History
(0.083 %) solution for nebulization
albuterol sulfate 90 mcg/actuation 2 puff inhalation Q6H PRN wheezing 01/25/24 02/11/25 History
aerosol inhaler
amlodipine 10 mg tablet 10 mg PO DAILY Blood Pressure 01/25/24 02/11/25 History
docusate sodium 100 mg capsule 100 mg PO BID stool softener 01/25/24 02/11/25 History
(Colace)
escitalopram oxalate 20 mg tablet 20 mg PO DAILY Mental 01/25/24 02/11/25 History
(Lexapro) Health/Anxiety
ezetimibe 10 mg tablet 10 mg PO DAILY High Cholesterol 01/25/24 02/11/25 History
levetiracetam 750 mg tablet 750 mg PO BID Seizures 01/25/24 02/11/25 History
magnesium hydroxide 400 mg/5 mL 30 ml PO PRN PRN constipation, no 01/25/24 02/11/25 History
oral suspension (Milk of Magnesia) BM X 3 D
pravastatin 40 mg tablet 40 mg PO HS High Cholesterol 01/25/24 02/11/25 History
sodium phosphates 19 gram-7 118 ml ND DAILYPRN PRN constipation 01/25/24 02/11/25 History
gram/118 mL enema (Fleet Enema)
apixaban 5 mg tablet 5 mg PO BID Blood Clot 02/11/25 02/11/25 History
Prevention/Tx
bisacodyl 10 mg rectal suppository 10 mg ND DAILY PRN constipation 02/11/25 02/11/25 History
(Dulcolax (bisacodyl))
cholecalciferol (vitamin D3) 50 50 mcg PO DAILY Supplement 02/11/25 02/11/25 History
mcg (2,000 unit) tablet (Vitamin
D3)
divalproex 500 mg tablet,extended 500 mg PO BID Neurological 02/11/25 02/11/25 History
release 24 hr (Depakote ER) Condition
sodium zirconium cyclosilicate 10 10 g PO MOWEFR hyperkalemia 02/11/25 02/11/25 History
gram oral powder packet (Lokelma)
Review of Systems
-
No chest pain
Reports mild shortness of breath but is laying supine
Thirsty and hungry
All other systems: Negative unless noted
Physical Exam
Vital Signs
Vital Signs
Temp Pulse Resp BP Pulse Ox
98.2 F 67 18 144/61 92
02/18/25 16:00 02/18/25 16:00 02/18/25 16:00 02/18/25 16:00 02/18/25 16:00
Lab Results
WBC 6.4 10^3/uL (4.8-10.8) 02/18/25 08:41
RBC 4.17 10^6/uL (4.70-6.10) L 02/18/25 08:41
Hgb 12.2 g/dL (13.0-18.0) L 02/18/25 08:41
Hct 34.4 % (39.0-52.0) L 02/18/25 08:41
Plt Count 81 10^3/uL (130-400) L 02/18/25 08:41
Sodium 127 mmol/L (135-145) L 02/18/25 08:41
Potassium 4.9 mmol/L (3.5-5.1) 02/18/25 08:41
Chloride 102 mmol/L (98-107) 02/18/25 08:41
Carbon Dioxide 22 mmol/L (22-30) 02/18/25 08:41
BUN 100 mg/dl (9-20) H 02/18/25 08:41
Creatinine 2.9 mg/dL (0.7-1.3) H 02/18/25 08:41
eGFR 22.15 02/18/25 08:41
Glucose 115 mg/dl (70-99) H 02/18/25 08:41
Calcium 7.9 mg/dl (8.4-10.2) L 02/18/25 08:41
Puu-E-Gnxiqskvbcy Pept 99500 pg/ml 02/11/25 14:43
Albumin 3.3 g/dl (3.5-5.0) L 02/11/25 14:43
Laboratory Tests
01/29/24 11/30/24 02/12/25
06:54 11:45 05:26
Hgb 11.5 L
Sodium 137
Potassium 4.7
Creatinine 1.0 1.6 H
Urine Albumin (Reflex) 4+ A
Physical Exam
Patient is awake alert oriented and in no distress. Mood and affect were pleasant, insight and judgment were good. Pupils are equal round and reactive to light, extraocular movements are intact, sclera were anicteric. Hearing was normal, ears and
nose are intact. Oropharynx was dry and clear. Neck was supple with trachea midline and no thyromegaly. Heart was regular rate and rhythm without rubs. Lower extremities without edema. Lungs were clear to auscultation bilaterally and with normal
excursion. Abdomen was soft, nontender, with normal active bowel sounds, and no hepatosplenomegaly. Skin was without rash and with normal turgor.
Data Reviewed
-
Radiology: Image Personally Visualized and interpreted (Chest x-ray 02/18/2025 by reading decreased lung volumes, cardiomegaly, diffuse interstitial markings)
Medical Tests (Nuc Med, Echo etc): Image Personally Visualized and interpreted (EKG 02/11/2025 by reading normal sinus rhythm right bundle branch block) and Report Reviewed by me (Echocardiogram 02/12/2025 EF 45%, mild AR MR)
Labs: Labs Reviewed by me
Old Records: Reviewed
Assessment/Plan
-
Assessment
BRIAN
CKD 3B baseline around 1.6
Hyponatremia
Chronic hyperkalemia
CHF mildly reduced EF, decompensated
COVID
Left lower leg DVT
History of stroke
COPD
Seizure disorder
Plan
He does appear to be overdiuresed at this time. Lasix will be held.
He should be receiving Lokelma 3 days a week at a minimum with additional if needed
Given his blood pressures I doubt adrenal insufficiency
Check renal ultrasound given normal postvoid
Repeat urinalysis with attention to urine sodium and urine osmolality and urine creatinine
No IV fluids today as he is able to take p.o.
Follow BMP
[2025-02-18 17:39] LABS: Urine Character Clear (Clear)
[2025-02-18 17:46] LABS: Urine Squamous Cell 0-2 /LPF (Few)
[2025-02-18 17:47] LABS: Urine Red Blood Cell 0-2 /HPF (0-2); Urine White Cell 0-2 /HPF (0-5)
--- NOTE | 2025-02-18 19:22 | W.PN.CARDCBS ---
Today's Communication / Plan
-
Hold Lasix
Monitor labs
Impression / Plan
-
.
PCP: Dr. Sky Tinoco
Cardiology: None prior to admission
Impression:
Admitted with change in mental status and COVID-positive 02/11/2025
COVID-positive at long-term SNF prior to admission 02/11/2025
Change in mental status, possible TME
AE COPD
Acute HFmrEF
Hyperkalemia
Hypokalemia
EF 45% by echo 02/12/2025
BRIAN on CKD 3B
h/o LLE DVT and started on Eliquis 11/30/2024
HTN
Hyperlipidemia
h/o CVA
Seizure disorder
Possible dementia
Possible TBI
DNR
Echo 01/25/2024: EF 55 to 60%, mild with peak/mean 28/17 mmHg, mild TR with PAP 23 mmHg, trivial pericardial effusion, mildly dilated aortic root with sinus of Valsalva, sinotubular junction and ascending aorta are all measuring 3.8 cm
Echo 02/12/2025: EF 45 to 50%, mild peak/mean 25/15 mmHg, mild aortic regurgitation, mild MR
Plan:
Acute HFmrEF In the setting of hypoxic respiratory distress and COVID
- proBNP was greater than 20,000 on admission with evidence of heart failure on x-ray.
- O2 weaned off, now on RA
- Holding Lasix since 02/15 05/27 AoCRI
-Monitor Cr, Na, K+
- Agree with Nephrology consult
- Cont to monitor Is and Os and daily wts.
-History of chronic renal insufficiency per chart with baseline creatinine 1.5�2 with creatinine today 2.4. Consider nephrology input
-Goal-directed medical therapy will be limited at this time due to renal insufficiency
- He has mild aortic stenosis would not be a cause for his heart failure
-He will need outpatient cardiac follow-up.
Chronic renal sufficiency with reported baseline 1.5�2 now 2.9
-Hold further diuretics, last lasix 02/15
-Nephrology consult
Continue treatment for COVID as per primary service.
History of stroke with left hemiparesis and seizure disorder with change in mental status on admission in setting of COVID
-Improved mental status
Lower extremity DVT 11/2024
-Dose of Eliquis reduced to 2.5 mg twice daily
Chronic thrombocytopenia�monitor platelets closely on Eliquis
Patient is a long-term facility resident and DNR.
HPI: -Patient came to the hospital on Tuesday with a change in mental status in the setting of being COVID-positive and was admitted with possible TME, cardiology is now consulted for possible acute HF. Patient is a long-term resident at [facility], he has lived there for at least 2 years. Patient has a previous CVA with residual weakness and is a minimal to a moderate assist. Last admission was an ER visit on 11/30/2024 where he was found to have an LLE DVT and was started on Eliquis.
There is no previous cardiology evaluation inpatient or outpatient on my review of [employer] in [employer] systems respectively. Patient is a poor historian, looking through all available records the patient has a previous CVA coupled with seizure
disorder, possible dementia and possible TBI. His nurse at the SNF noticed he was more confused and a day or 2 prior he had been diagnosed with COVID, so he was referred to the ER for further evaluation. In the ER patient was confused and
combative, but overall improved now. He remains hypoxic and was started on Decadron and Paxlovid. CXR suggested pulmonary edema and proBNP was elevated at 20,500. Patient is now being diuresed with Lasix 40 mg daily. Echo checked yesterday
showed EF is now reduced to 45 to 50%, but had been normal a year ago.
Progress Note - Gallery Manager
Subjective
Date of Service: February 18, 2025
Chart reviewed. Patient offers no complaints.
Objective
Labs:
02/18/25 08:41
02/18/25 08:41
Labs
Hgb 12.2 g/dL (13.0-18.0) L 02/18/25 08:41
Hct 34.4 % (39.0-52.0) L 02/18/25 08:41
Plt Count 81 10^3/uL (130-400) L 02/18/25 08:41
Sodium 127 mmol/L (135-145) L 02/18/25 08:41
Potassium 4.9 mmol/L (3.5-5.1) 02/18/25 08:41
BUN 100 mg/dl (9-20) H 02/18/25 08:41
Creatinine 2.9 mg/dL (0.7-1.3) H 02/18/25 08:41
Glucose 115 mg/dl (70-99) H 02/18/25 08:41
Vital Signs and I&O:
Vital Signs
Temp Pulse Resp BP Pulse Ox
98.2 F 67 18 144/61 92
02/18/25 16:00 02/18/25 16:00 02/18/25 16:00 02/18/25 16:00 02/18/25 16:00
Vital Signs
Temp Pulse Resp BP Pulse Ox
98.2 F 67 18 144/61 92
02/18/25 16:00 02/18/25 16:00 02/18/25 16:00 02/18/25 16:00 02/18/25 16:00
Intake & Output
02/16/25 02/17/25 02/18/25 02/19/25
06:59 06:59 06:59 06:59
Intake Total 1640 / 1640 840 / 840 840 / 840
Output Total 1200 / 1200 750 / 750
Balance 440 / 440 90 / 90 840 / 840
Physical Exam
Physical Exam
General: No acute distress
Heart: Regular, positive S1/S2, 1/6 SM
Lungs: CTA b/l, negative wheezes/rales/rhonchi
Abd: Positive BS, NT/ND, neg rebound/rigidity/guarding
Ext: + edema
[2025-02-18] MEDS: ELIQUIS 5 MG PO (19:49)
[2025-02-18] MEDS: NSS 1000 IV (19:51)
--- NOTE | 2025-02-18 20:10 | PTCARENOTE ---
Pt increasingly more anxious and confused. Pt made multiple attempts to get out of bed despite measures to reorient. Pt still on respiratory illness precautions. House provider made aware and received order for clarissa chair. Pt became more agitated,
yelling, and screaming out during attempt to place in clarissa chair. Staff assisted pt back to bed and staff stayed with pt in room. Pt now calm and resting comfortably. Call coyne within reach.
[2025-02-18] MEDS: MELATONIN 5 MG PO (22:39)
[2025-02-18] MEDS: PRAVACHOL 40 MG PO (22:39)
[2025-02-18 23:16] VITALS: BP 152/68
[2025-02-19 05:04] VITALS: BMI 30.9
[2025-02-19] MEDS: TYLENOL 650 MG PO (05:19)
[2025-02-19 07:54] LABS: Blood Urea Nitrogen 106 mg/dl (9-20); Calcium 7.6 mg/dl (8.4-10.2); Carbon Dioxide 21 mmol/L (22-30); Chloride 101 mmol/L (98-107); Estimated Creatinine Clearance 32 ml/min; Glucose 130 mg/dl (70-99); Potassium 4.6 mmol/L (3.5-5.1); Sodium 130 mmol/L (135-145); eGFR 26.47
[2025-02-19] MEDS: KEPPRA 750 MG PO ×2 (08:14→20:40)
[2025-02-19] MEDS: TOPROL XL 12.5 MG PO (08:14)
[2025-02-19] MEDS: ELIQUIS 5 MG PO ×2 (08:14→20:41)
[2025-02-19] MEDS: COLACE 100 MG PO ×2 (08:14→20:40)
[2025-02-19] MEDS: MUCINEX 600 MG PO (08:14)
[2025-02-19] MEDS: DEPAKOTE ER (24 HR RELEASE) 500 MG PO ×2 (08:14→20:41)
[2025-02-19] MEDS: ZETIA 10 MG PO (08:14)
[2025-02-19] MEDS: NORVASC 10 MG PO (08:15)
[2025-02-19] MEDS: LEXAPRO 20 MG PO (08:15)
[2025-02-19] MEDS: NSS 1000 IV (08:15)
[2025-02-19 08:43] VITALS: BP 154/65
--- NOTE | 2025-02-19 11:31 | W.PN.NEPH.PH ---
Today's Communication / Plan
-
cap IVF
Assessment/Plan
-
Assessment
BRIAN
CKD 3B baseline around 1.6
Hyponatremia
Chronic hyperkalemia
CHF mildly reduced EF, decompensated
COVID
Left lower leg DVT
History of stroke
COPD
Seizure disorder
Plan
holding lasix
He should continue receiving Lokelma 3 days a week at a minimum with additional if needed
cortisol level 6.9 is slightly lower than expected, but not convincing for adrenal insufficiency
Check renal ultrasound given normal postvoid
cap IVF, s/p 1L
check U p/c
Follow BMP
-
-
Date of Service: February 19, 2025
CC / HPI / ROS
-
Chief Complaint:
BRIAN
History of Present Illness:
BRIAN/Cr down to 2.5
BUN up to 106
BP stable high
K normal
Review of Systems:
no CP/SOB
Labs
-
Labs:
WBC 6.4 10^3/uL (4.8-10.8) 02/18/25 08:41
RBC 4.17 10^6/uL (4.70-6.10) L 02/18/25 08:41
Hgb 12.2 g/dL (13.0-18.0) L 02/18/25 08:41
Hct 34.4 % (39.0-52.0) L 02/18/25 08:41
Plt Count 81 10^3/uL (130-400) L 02/18/25 08:41
Sodium 130 mmol/L (135-145) L 02/19/25 06:28
Potassium 4.6 mmol/L (3.5-5.1) 02/19/25 06:28
Chloride 101 mmol/L (98-107) 02/19/25 06:28
Carbon Dioxide 21 mmol/L (22-30) L 02/19/25 06:28
BUN 106 mg/dl (9-20) H* 02/19/25 06:28
Creatinine 2.5 mg/dL (0.7-1.3) H 02/19/25 06:28
eGFR 26.47 02/19/25 06:28
Glucose 130 mg/dl (70-99) H 02/19/25 06:28
Calcium 7.6 mg/dl (8.4-10.2) L 02/19/25 06:28
Ulp-Y-Ytjthmzreey Pept 06136 pg/ml 02/11/25 14:43
Albumin 3.3 g/dl (3.5-5.0) L 02/11/25 14:43
Physical Exam
-
Vital Signs:
Vital Signs
Temp Pulse Resp BP Pulse Ox
97.7 F 56 18 154/65 95
02/19/25 08:43 02/19/25 08:43 02/19/25 08:43 02/19/25 08:43 02/19/25 08:43
Cardiovascular:: Regular rate and rhythm
Respiratory:: Bilateral: Coarse
Lung Excursion:: Normal
Abdomen:: Nontender and Soft
Bowel Sounds:: Normal
Extremity Edema:: None: Bilateral:
--- NOTE | 2025-02-19 12:19 | W.PN.CARDCBS ---
Today's Communication / Plan
-
Continue current regimen
Conservative strategy for mildly reduced EF
Recheck proBNP
Hold diuretics, defer to nephrology
Impression / Plan
-
.
PCP: Dr. Sky Tinoco
Cardiology: None prior to admission
Impression:
Admitted with change in mental status and COVID-positive 02/11/2025
COVID-positive at long-term SNF prior to admission 02/11/2025
Change in mental status, possible TME
AE COPD
Acute HFmrEF
Hyperkalemia
Hypokalemia
EF 45% by echo 02/12/2025
BRIAN on CKD 3B
h/o LLE DVT and started on Eliquis 11/30/2024
HTN
Hyperlipidemia
h/o CVA
Seizure disorder
Possible dementia
Possible TBI
DNR
Echo 01/25/2024: EF 55 to 60%, mild with peak/mean 28/17 mmHg, mild TR with PAP 23 mmHg, trivial pericardial effusion, mildly dilated aortic root with sinus of Valsalva, sinotubular junction and ascending aorta are all measuring 3.8 cm
Echo 02/12/2025: EF 45 to 50%, mild peak/mean 25/15 mmHg, mild aortic regurgitation, mild MR
Plan:
Overall stable cardiac status, no evidence of heart failure on exam.
Creatinine is dropping back towards baseline.
Continue to hold diuretic. His proBNP was markedly elevated at admission, 20,500. Will repeat. Not clear that he should be discharged on a diuretic.
Would treat mild reduction in EF conservatively. Utility of stress testing etc. may be limited if he is feeling well. Currently on a low-dose beta-delbert. ARJUN inhibitor probably best avoided given creatinine. He is on a statin and on apixaban.
If apixaban is discontinued, would start baby aspirin.
From cardiac standpoint okay to begin discharge planning.
HPI: -Patient came to the hospital on Tuesday with a change in mental status in the setting of being COVID-positive and was admitted with possible TME, cardiology is now consulted for possible acute HF. Patient is a long-term resident at [facility], he has lived there for at least 2 years. Patient has a previous CVA with residual weakness and is a minimal to a moderate assist. Last admission was an ER visit on 11/30/2024 where he was found to have an LLE DVT and was started on Eliquis.
There is no previous cardiology evaluation inpatient or outpatient on my review of [employer] in [employer] systems respectively. Patient is a poor historian, looking through all available records the patient has a previous CVA coupled with seizure
disorder, possible dementia and possible TBI. His nurse at the SNF noticed he was more confused and a day or 2 prior he had been diagnosed with COVID, so he was referred to the ER for further evaluation. In the ER patient was confused and
combative, but overall improved now. He remains hypoxic and was started on Decadron and Paxlovid. CXR suggested pulmonary edema and proBNP was elevated at 20,500. Patient is now being diuresed with Lasix 40 mg daily. Echo checked yesterday
showed EF is now reduced to 45 to 50%, but had been normal a year ago.
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
Subjective
Date of Service: February 19, 2025:
74-year-old man admitted with COVID and acute exacerbation of COPD, possibly with HFmrEF. Had BRIAN related to diuresis, peak creatinine 2.9 now 2.5. Now on day 8 of isolation.
PMH: Traumatic brain injury, history of CVA, seizure disorder, dementia, long-term care facility resident, hypertension, left lower extremity DVT November 2024, CKD 3B, EF 45%, COPD
Current meds: Not on diuretic at baseline. Amlodipine 10 mg daily, Depakote, Lexapro 20 mg a day, ezetimibe 10 mg a day, Keppra 750 twice daily, pravastatin 40 mg a day, furosemide 40 mg IV daily (hold), Spiriva, metoprolol ER 12.5 mg daily,
apixaban 5 mg twice daily
Pulse 56, respiratory rate 18, afebrile 154/65, garrulous but pleasant, frustrated that he is here, some rhonchi, regular rate and rhythm, no obvious murmurs, abdomen benign, extremities trace to 1+ edema, JVD okay
Sodium 130, potassium 4.6, chloride 101, CO2 21, BUN 106, creatinine 2.5, had been 2.9, proBNP was 20,500 on the
Echo 01/25/2024: Mild LVH EF 55-60%, mild aortic stenosis peak gradient 28 mmHg, mild TR, aortic root 3.8 cm, MAC without MR
Echo 02/12/2025: EF 45-50% anterior anteroseptal hypokinesis inferior hypo-, mildly dilated left atrium, mild aortic stenosis peak gradient 25 mmHg with mild aortic regurgitation, mild mitral regurgitation with MAC
Objective
Labs:
02/18/25 08:41
02/19/25 06:28
Labs
Hgb 12.2 g/dL (13.0-18.0) L 02/18/25 08:41
Hct 34.4 % (39.0-52.0) L 02/18/25 08:41
Plt Count 81 10^3/uL (130-400) L 02/18/25 08:41
Sodium 130 mmol/L (135-145) L 02/19/25 06:28
Potassium 4.6 mmol/L (3.5-5.1) 02/19/25 06:28
BUN 106 mg/dl (9-20) H* 02/19/25 06:28
Creatinine 2.5 mg/dL (0.7-1.3) H 02/19/25 06:28
Glucose 130 mg/dl (70-99) H 02/19/25 06:28
Vital Signs and I&O:
Vital Signs
Temp Pulse Resp BP Pulse Ox
36.5 C 56 18 154/65 95
02/19/25 08:43 02/19/25 08:43 02/19/25 08:43 02/19/25 08:43 02/19/25 08:43
Vital Signs
Temp Pulse Resp BP Pulse Ox
36.5 C 56 18 154/65 95
02/19/25 08:43 02/19/25 08:43 02/19/25 08:43 02/19/25 08:43 02/19/25 08:43
Intake & Output
02/17/25 02/18/25 02/19/25 02/20/25
07:59 07:59 07:59 07:59
Intake Total 840 / 840 1969
Output Total 750 / 750 300 / 300
Balance 90 / 90 1969 -300 / -300
Physical Exam
Physical Exam
See above
--- NOTE | 2025-02-19 13:33 | W.PN.HOSP.TC ---
Today's Communication/Plan
-
Seroquel
Observe off IV fluids following creatinine
Assessment / Plan
Assessment / Plan
Impression
74 years old male with history of CVA with residual left-sided weakness, dementia, seizures, COPD, recent diagnosis of lower extremity DVT initiated on Eliquis 11/30/2024 presented from nursing facility with reported lethargy. Patient was recently
(unknown date diagnosed with COVID-19)
Altered mental status/TME likely multifactorial
Acute hypoxic respiratory insufficiency, requires 2 L of oxygen supplementation
Acute CHF preserved EF exacerbation with pulmonary edema
BRIAN on CKD with concern for cardiorenal state
Hyponatremia from diuresis
Conditions prior to admission
Status post CVA with residual left-sided weakness
Seizure disorder.
Hypertension.
CKD stage IIIb
Recent diagnosis of lower extremity DVT on Eliquis.
Chronic thrombocytopenia (ambulatory ascitic thrombocytopenia).
Plan:
Altered mental status/TME likely multifactorial due to recent COVID infection as well as hypoxia related to acute pulmonary edema and CHF exacerbation.
Patient is currently alert awake and latent reasonably responding to all questions.
With history of CVA he has a chronic left facial droop and left upper and lower extremity weakness.
CT head negative
Aspiration precautions
Speech and swallow evaluation
Intermittent agitation at this multifactorial possibly related to BRIAN.
Add low-dose of Seroquel to improve sleep-wake cycle and hopefully reducing agitation.
Acute hypoxic respiratory insufficiency
Acute CHF exacerbation with pulmonary edema.
Chest x-ray with cardiomegaly and bilateral interstitial infiltrates.
Elevated pro CHF BNP over 20,000
Echocardiogram 02/15 with LVEF 55-60%. Mild aortic stenosis with, mild TR
Updated echo::1. Left ventricle is normal in size. Mildly reduced left ventricular left ventricular systolic function. Mild concentric left ventricular hypertrophy. Anterior, anteroseptal and inferior hypokinesis. Left ventricular ejection fraction
is 45-50% by visual estimate.
2. Mildly dilated left atrium left atrium.
3. Trileaflet, thickened aortic leaflets with restricted leaflet motion. Mild aortic stenosis. Peak/mean gradients across the aortic valve are 25/15 mmHg. Mild aortic regurgitation.
4. Thickened mitral leaflets with adequate leaflet excursion. Mitral annular calcification. Mild mitral regurgitation.
5. When compared to the most recent echocardiogram from 01/25/2024, the LVEF is now estimated low normal to mildly reduced with an estimated ejection fraction of 45-50% as compared to 55-60% as noted on the prior study. The mean aortic valve
gradients have remained reasonably stable.
Overall respiratory status improved and patient weaned off oxygen supplementation as of 02/15.
Weight plateau around 97 kg suspect dry weight. Creatinine mi to 2.9
continue to Hold Lasix and follow-up BMP
COVID-19 infection.
Follow temperature curve
Chest x-ray with diffuse bilateral infiltrate suspect secondary to cardiogenic pulmonary edema
Completed 5-day course of Paxlovid
Completed 7-day course of Decadron
Overall respiratory status improved and has been off oxygen supplementation
COPD without evidence of exacerbation.
Minimal nonproductive cough.
No bronchospasm on exam.
Chest x-ray with no focal infiltrate.
Continue nebulizers/inhalers
Steroids as above
Essential hypertension.
Continue amlodipine.
Monitor BP trend with diuresis.
BRIAN, suspect cardiorenal state. Creatinine is up to 2.9
Hyponatremia sodium 127
Hyperkalemia
CKD stage IIIb with baseline creatinine 1.5�2.
Bladder scan with no retention
Urine showed urine decreased with increased osmolarity likely consistent with prerenal causes and hyponatremia related to increased ADH state
Serum cortisol adequate
Renal sonogram with no evidence of collecting system abnormalities
Creatinine improving with IV hydration down to 2.5
Continue holding Lasix
Continue Lokelma for hyperkalemia
Status post CVA with left hemiparesis as residual
Aspiration risk pending consult.
Seizure disorder.
Continue Keppra and Depakote. Depakote level 15.7
Continue preadmission neurologic regimen including Lexapro
Continue Pravachol and Zetia
Lower extremity DVT.
On Eliquis.
PAD.
Recent arterial ultrasound indicative of bilateral disease with right AMRIK 0.25 left AMRIK 0.29
No evidence for acute lower extremity ischemia
Outpatient follow-up with vascular surgery
Chronic thrombocytopenia
Listed diagnosis of a megakaryocytic thrombocytopenia
Moderate thrombocytopenia with platelet count over 50. Monitor closely while on Eliquis.
Hyponatremia - monitor BMP while off Lasix
Code: DNR/DNI
DVT ppx: Eliquis
Anticipated Discharge: 24 - 48 hours
Subjective/Interval History
-
Date of Service: February 19, 2025
Objective Data
-
Labs:
Laboratory Results
02/19/25
06:28
Sodium 130 L
Potassium 4.6
Chloride 101
Carbon Dioxide 21 L
BUN 106 H*
Creatinine 2.5 H
Glucose 130 H
Calcium 7.6 L
Vital Signs:
Vital Signs
Temp Pulse Resp BP Pulse Ox
97.7 F 56 18 154/65 95
02/19/25 08:43 02/19/25 08:43 02/19/25 08:43 02/19/25 08:43 02/19/25 08:43
I&O
02/18/25 02/19/25 02/20/25
06:59 06:59 06:59
Intake Total 1969
Output Total 300 / 300
Balance 1969 -300 / -300
Physical Exam
-
General: No Apparent Distress
HEENT: Normocephalic and Atraumatic
Respiratory: Negative Wheezes
Cardiac: Regular Rhythm and S1/S2
Genito-urinary: No Costovertebral Tender
Neuro: AO x 3
Psych: Calm
--- NOTE | 2025-02-19 15:06 | CM ---
CM reviewed chart- ADC 1-2 days
Pt remains on COVID precautions
Update provided to [facility] admissions
Updated clinicals sent via [facility]
Discharge Disposition- return to [facility] for LTC
[2025-02-19 16:23] VITALS: BP 143/60
[2025-02-19] MEDS: PRAVACHOL 40 MG PO (20:40)
[2025-02-19] MEDS: SEROQUEL 12.5 MG PO (22:26)
[2025-02-19 23:32] VITALS: BP 151/61
[2025-02-20 05:16] VITALS: BMI 31.4
[2025-02-20 07:00] VITALS: BP 151/56
[2025-02-20] MEDS: ZETIA 10 MG PO (07:45)
[2025-02-20] MEDS: TOPROL XL 12.5 MG PO (07:45)
[2025-02-20] MEDS: DEPAKOTE ER (24 HR RELEASE) 500 MG PO (07:45)
[2025-02-20] MEDS: LEXAPRO 20 MG PO (07:45)
[2025-02-20] MEDS: NORVASC 10 MG PO (07:45)
[2025-02-20] MEDS: COLACE 100 MG PO (07:45)
[2025-02-20] MEDS: ELIQUIS 5 MG PO (07:45)
[2025-02-20] MEDS: KEPPRA 750 MG PO (07:46)
[2025-02-20] MEDS: LOKELMA 10 GRAM PO (07:47)
[2025-02-20 08:44] LABS: Blood Urea Nitrogen 97 mg/dl (9-20); Calcium 7.5 mg/dl (8.4-10.2); Carbon Dioxide 22 mmol/L (22-30); Chloride 106 mmol/L (98-107); Estimated Creatinine Clearance 38 ml/min; Glucose 78 mg/dl (70-99); Potassium 4.1 mmol/L (3.5-5.1); Sodium 132 mmol/L (135-145); eGFR 32.62
--- NOTE | 2025-02-20 09:53 | W.PN.CARDCBS ---
Today's Communication / Plan
-
Appears euvolemic despite elevated proBNP. Will defer diuretic dosing to nephrology.
Stable cardiac status, we will sign off, please recall as needed
Impression / Plan
-
PCP: Dr. Sky Tinoco
Cardiology: None prior to admission
Impression:
Admitted with change in mental status and COVID-positive 02/11/2025
COVID-positive at long-term SNF prior to admission 02/11/2025
Change in mental status, possible TME
AE COPD
Acute HFmrEF
Hyperkalemia
Hypokalemia
EF 45% by echo 02/12/2025
BRIAN on CKD 3B
h/o LLE DVT and started on Eliquis 11/30/2024
HTN
Hyperlipidemia
h/o CVA
Seizure disorder
Possible dementia
Possible TBI
DNR
Echo 01/25/2024: EF 55 to 60%, mild with peak/mean 28/17 mmHg, mild TR with PAP 23 mmHg, trivial pericardial effusion, mildly dilated aortic root with sinus of Valsalva, sinotubular junction and ascending aorta are all measuring 3.8 cm
Echo 02/12/2025: EF 45 to 50%, mild peak/mean 25/15 mmHg, mild aortic regurgitation, mild MR
Plan:
Currently on room air and appears euvolemic on exam despite elevated proBNP
Creatinine is trending back towards baseline
We will defer diuretic dosing to nephrology
Would treat mild reduction in EF conservatively. Utility of stress testing etc. may be limited if he is feeling well.
Currently on a low-dose beta-delbert.
Avoid ARJUN/SGLT2/MRA probably best avoided given renal insufficiency
Continue statin and apixaban. If apixaban is discontinued, would start baby aspirin.
Stable cardiac status, we will sign off, please recall as needed
HPI: -Patient came to the hospital on Tuesday with a change in mental status in the setting of being COVID-positive and was admitted with possible TME, cardiology is now consulted for possible acute HF. Patient is a long-term resident at [facility], he has lived there for at least 2 years. Patient has a previous CVA with residual weakness and is a minimal to a moderate assist. Last admission was an ER visit on 11/30/2024 where he was found to have an LLE DVT and was started on Eliquis.
There is no previous cardiology evaluation inpatient or outpatient on my review of [employer] in [employer] systems respectively. Patient is a poor historian, looking through all available records the patient has a previous CVA coupled with seizure
disorder, possible dementia and possible TBI. His nurse at the SNF noticed he was more confused and a day or 2 prior he had been diagnosed with COVID, so he was referred to the ER for further evaluation. In the ER patient was confused and
combative, but overall improved now. He remains hypoxic and was started on Decadron and Paxlovid. CXR suggested pulmonary edema and proBNP was elevated at 20,500. Patient is now being diuresed with Lasix 40 mg daily. Echo checked yesterday
showed EF is now reduced to 45 to 50%, but had been normal a year ago.
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
Subjective
Date of Service: February 20, 2025
No acute overnight events. No cardiac complaints today. Asking to go home.
Objective
Labs:
02/18/25 08:41
02/20/25 06:54
Labs
Hgb 12.2 g/dL (13.0-18.0) L 02/18/25 08:41
Hct 34.4 % (39.0-52.0) L 02/18/25 08:41
Plt Count 81 10^3/uL (130-400) L 02/18/25 08:41
Sodium 132 mmol/L (135-145) L 02/20/25 06:54
Potassium 4.1 mmol/L (3.5-5.1) 02/20/25 06:54
BUN 97 mg/dl (9-20) H 02/20/25 06:54
Creatinine 2.1 mg/dL (0.7-1.3) H 02/20/25 06:54
Glucose 78 mg/dl (70-99) 02/20/25 06:54
Vital Signs and I&O:
Vital Signs
Temp Pulse Resp BP Pulse Ox
97.9 F 62 20 151/56 92
02/20/25 07:00 02/20/25 07:45 02/20/25 07:00 02/20/25 07:45 02/20/25 08:22
Vital Signs
Temp Pulse Resp BP Pulse Ox
97.9 F 62 20 151/56 92
02/20/25 07:00 02/20/25 07:45 02/20/25 07:00 02/20/25 07:45 02/20/25 08:22
Intake & Output
02/18/25 02/19/25 02/20/25 02/21/25
06:59 06:59 06:59 06:59
Intake Total 1969 240 / 240
Output Total 1200 / 1200
Balance 1969 -960 / -960
Physical Exam
Physical Exam
Gen: NAD, AA
HEENT: NC/AT, sclera anicteric
Neck: No JVD
CV: RRR, NL s1/s2
Lungs: CTAB on RA
Abd: S/ND
Ext: No LE edema
Skin: Warm, dry
Neuro: Non-focal
[2025-02-20 10:53] VITALS: BP 122/43; PULSE 57; O2SAT 87
[2025-02-20 11:00] VITALS: BP 122/43; PULSE 57; O2SAT 87
--- NOTE | 2025-02-20 13:01 | W.DS.TRANS ---
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
-
Discharge Instructions:
Discharge Diagnosis/Procedures COVID-19
Pneumonia
CHF
Diet Regular
Blood Work BMP in one week
Instructions:
Stand-Alone Forms:
Changes to Home Medications: No
Discharge Medications:
DC Medications w/original date entered in [employer]
acetaminophen 325 mg tablet (Tylenol) 650 mg PO Q4HPRN PRN fever/pain 01/25/24
albuterol sulfate 2.5 mg/3 mL (0.083 %) solution for nebulization 2.5 mg inhalation Q6H PRN wheezing 01/25/24
albuterol sulfate 90 mcg/actuation aerosol inhaler 2 puff inhalation Q6H PRN wheezing 01/25/24
amlodipine 10 mg tablet 10 mg PO DAILY Blood Pressure 01/25/24
docusate sodium 100 mg capsule (Colace) 100 mg PO BID stool softener 01/25/24
escitalopram oxalate 20 mg tablet (Lexapro) 20 mg PO DAILY Mental Health/Anxiety 01/25/24
ezetimibe 10 mg tablet 10 mg PO DAILY High Cholesterol 01/25/24
levetiracetam 750 mg tablet 750 mg PO BID Seizures 01/25/24
magnesium hydroxide 400 mg/5 mL oral suspension (Milk of Magnesia) 30 ml PO PRN PRN constipation, no BM X 3 D 01/25/24
pravastatin 40 mg tablet 40 mg PO HS High Cholesterol 01/25/24
sodium phosphates 19 gram-7 gram/118 mL enema (Fleet Enema) 118 ml [place] DAILYPRN PRN constipation 01/25/24
apixaban 5 mg tablet 5 mg PO BID Blood Clot Prevention/Tx 02/11/25
bisacodyl 10 mg rectal suppository (Dulcolax (bisacodyl)) 10 mg [place] DAILY PRN constipation 02/11/25
cholecalciferol (vitamin D3) 50 mcg (2,000 unit) tablet (Vitamin D3) 50 mcg PO DAILY Supplement 02/11/25
divalproex 500 mg tablet,extended release 24 hr (Depakote ER) 500 mg PO BID Neurological Condition 02/11/25
sodium zirconium cyclosilicate 10 gram oral powder packet (Lokelma) 10 g PO MOWEFR hyperkalemia 02/11/25
Home Medication Changes
Pending Results: No
--- NOTE | 2025-02-20 14:07 | PTCARENOTE ---
Report called to IVAN Mahan at [facility]. Acute Care set to pick pt up at 1630.
--- NOTE | 2025-02-20 14:28 | CM ---
Addendum entered by Delta Lofton 02/20/25 14:39:
IMM emailed to [email or web address] Marsh's email : [email or web address]
Original Note:
CM reviewed the chart
Per Dr. Koehler he is ready for discharge back to [facility].
Spoke with Sharon at [facility]
Informed that he is Covid +
Report to be given to [phone]
Fax to [phone]
Transport set up with Acute care at 16:30 pm
LVM with son Venkatesh
Spoke with ronnie Marsh to discuss IMM
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
NO other CM needs at this time
[2025-02-20 15:00] VITALS: BP 141/55
--- NOTE | 2025-02-20 15:18 | W.PN.NEPH.PH ---
Today's Communication / Plan
-
ok to d/c
BMP in 1week
f/u nephro
Assessment/Plan
-
Assessment
BRIAN
CKD 3B baseline around 1.6
Hyponatremia
Chronic hyperkalemia
CHF mildly reduced EF, decompensated
COVID
Left lower leg DVT
History of stroke
COPD
Seizure disorder
Plan
improving renal function , cont to hold lasix
He should continue receiving Lokelma 3 days a week at a minimum with additional if needed
cortisol level 6.9 is slightly lower than expected, but not convincing for adrenal insufficiency
renal ultrasound shows MRD changes and no hydro
U PCR is at 6.6gm/gm of cr need f/u out pt with nephro
sherman improving renal function I am ok to d/c and nephro f/u
-
-
Date of Service: February 20, 2025
CC / HPI / ROS
-
Chief Complaint:
BRIAN
History of Present Illness:
BRIAN/Cr down to 2.1
BUN down to 97
BP stable high
K normal
Review of Systems:
no CP/SOB
SOMERS on exam while walking
Labs
-
Labs:
WBC 6.4 10^3/uL (4.8-10.8) 02/18/25 08:41
RBC 4.17 10^6/uL (4.70-6.10) L 02/18/25 08:41
Hgb 12.2 g/dL (13.0-18.0) L 02/18/25 08:41
Hct 34.4 % (39.0-52.0) L 02/18/25 08:41
Plt Count 81 10^3/uL (130-400) L 02/18/25 08:41
Sodium 132 mmol/L (135-145) L 02/20/25 06:54
Potassium 4.1 mmol/L (3.5-5.1) 02/20/25 06:54
Chloride 106 mmol/L (98-107) 02/20/25 06:54
Carbon Dioxide 22 mmol/L (22-30) 02/20/25 06:54
BUN 97 mg/dl (9-20) H 02/20/25 06:54
Creatinine 2.1 mg/dL (0.7-1.3) H 02/20/25 06:54
eGFR 32.62 02/20/25 06:54
Glucose 78 mg/dl (70-99) 02/20/25 06:54
Calcium 7.5 mg/dl (8.4-10.2) L 02/20/25 06:54
Lwr-Z-Jhbiebjsopk Pept 06115 pg/ml 02/20/25 06:54
Albumin 3.3 g/dl (3.5-5.0) L 02/11/25 14:43
Physical Exam
-
Vital Signs:
Vital Signs
Temp Pulse Resp BP Pulse Ox
97.9 F 62 20 151/56 92
02/20/25 07:00 02/20/25 07:45 02/20/25 07:00 02/20/25 07:45 02/20/25 08:22
Cardiovascular:: Regular rate and rhythm
Respiratory:: Bilateral: Coarse and Bilateral: Rhonchi
Lung Excursion:: Normal
Abdomen:: Nontender and Soft
Bowel Sounds:: Normal
Extremity Edema:: +1: Bilateral:
Duarte Catheter: No
== END 2025-02-20 16:50 | DRG 177 ==
LOC: 2 NORTH 17:21
PROVIDERS: Internal Medicine; Internal Medicine Cardiovascular Disease; Nurse Practitioner Family; ADMITTING PHYSICIAN Hospitalist; ATTENDING PHYSICIAN Internal Medicine; CONSULT PHYSICIAN Internal Medicine Cardiovascular Disease; CONSULT PHYSICIAN Specialist; EMERGENCY PHYSICIAN Student in an Organized Health Care Education/Training Program; FAMILY PHYSICIAN Internal Medicine
DX: U07.1 COVID-19 (principal); G92.8 Other toxic encephalopathy; I50.21 Acute systolic (congestive) heart failure; N17.9 Acute kidney failure, unspecified; E87.1 Hypo-osmolality and hyponatremia; I69.354 Hemiplegia and hemiparesis following cerebral infarction affecting left non-dominant side; I13.0 Hypertensive heart and chronic kidney disease with heart failure and stage 1 through stage 4 chronic kidney disease, or unspecified chronic kidney disease; J44.1 Chronic obstructive pulmonary disease with (acute) exacerbation; F01.53 Vascular dementia, unspecified severity, with mood disturbance; F01.54 Vascular dementia, unspecified severity, with anxiety; R09.02 Hypoxemia; G40.909 Epilepsy, unspecified, not intractable, without status epilepticus; N18.32 Chronic kidney disease, stage 3b; Z79.01 Long term (current) use of anticoagulants; D69.6 Thrombocytopenia, unspecified; E87.5 Hyperkalemia; Z66 Do not resuscitate; E78.00 Pure hypercholesterolemia, unspecified; F17.200 Nicotine dependence, unspecified, uncomplicated; Z79.899 Other long term (current) drug therapy; E86.1 Hypovolemia; F32.A Depression, unspecified; I69.391 Dysphagia following cerebral infarction; I69.398 Other sequelae of cerebral infarction; Z87.820 Personal history of traumatic brain injury
CPT/HCPCS: 70450; 71045; 71046; 76770; 80048; 80053; 80164; 81003; 81015; 82533; 82570; 83735; 83880; 83935; 84156; 84300; 85025; 85027; 86803; 87502; 87811; 92610; 93005; 93306; 94640; 96374; 96375; 97116; 97163; 97166; 97530; 99285